=== PATIENT | female | born 1940 | race Caucasian/White ===

== ENCOUNTER → 2016-08-27 | Outpatient (CLI) | payer MEDICARE, BC ==
--- NOTE | 2016-08-27 11:01 | USB ---
Reason for exam: additional evaluation requested from abnormal screening. History: Patient is postmenopausal. Physical Findings: Nurse Summary: Patient complains of pain in the right upper outer quadrant for 4 months. All soft nodular movable (nurse ts). US Breast RT Right breast ultrasound includes all four quadrants, the retroareolar region and axilla. Finding demonstrate a 2.0 x 2.0 x 1.6 cm node in the axilla, and a 2.1 x 1.4 x 1.6cm node in the axilla. These results were verbally communicated with the patient and result sheet given to the patient on 08/27/16. ASSESSMENT: Probably benign, BI-RAD 3 RECOMMENDATION: Ultrasound of the right breast in 6 months. Manage patient on a clinical basis.
== END | disposition home or self-care (01) ==
LOC: RADUSWWP 08:32
PROVIDERS: ATTEND Family Medicine
DX: N64.4 Mastodynia (principal)

== ENCOUNTER → 2017-01-11 | Outpatient (CLI) | payer MEDICARE, BC ==
--- NOTE | 2017-01-11 14:18 | US ---
EXAMINATION TYPE: US kidneys/renal and bladder DATE OF EXAM: 01/11/2017 COMPARISON: NONE CLINICAL HISTORY: N18.2 Chronic kidney disease stage 2. Diabetic EXAM MEASUREMENTS: Right Kidney: 10.7 x 6.2 x 4.7 cm Left Kidney: 11.3 x 5.2 x 6.0 cm Post Void Residual Volume: 0 mL Right Kidney: No hydronephrosis or masses seen Left Kidney: prominent renal calices especially mid and lower pole; fluid area adjacent to mid renal periphery suggests sonographic "sweat sign" indicating renal failure. Bladder: wnl Bilateral Jets seen: only right ureteral jet was seen after 3 minute observation. Normal Post Void Residual: Yes, appears empty post void. IMPRESSION: There are changes suggesting some left renal failure.
== END | disposition home or self-care (01) ==
LOC: RADUSWWP 09:33
PROVIDERS: ATTEND Internal Medicine Nephrology
DX: N18.2 Chronic kidney disease, stage 2 (mild) (principal)
CPT/HCPCS: 76770

== ENCOUNTER 2019-05-23 13:59 | Inpatient (IN) | payer MEDICARE, BC ==
[2019-05-23 14:48] LABS: Basophils % (A) 1 %; Eosinophils # (A) 0.1 k/uL (0-0.7); Eosinophils % (A) 2 %; HCT 35.4 % (34.0-46.0); HGB 11.8 gm/dL (11.4-16.0); Lymphocytes # (A) 2.1 k/uL (1.0-4.8); Lymphocytes % (A) 33 %; MCH 27.9 pg (25.0-35.0); MCHC 33.4 g/dL (31.0-37.0); MCV 83.4 fL (80.0-100.0); Monocytes # (A) 0.3 k/uL (0-1.0); Monocytes % (A) 5 %; Neutrophils # (A) 3.6 k/uL (1.3-7.7); Neutrophils % (A) 58 %; Platelet Count 191 k/uL (150-450); RBC 4.24 m/uL (3.80-5.40); RDW 15.2 % (11.5-15.5); WBC 6.3 k/uL (3.8-10.6)
--- NOTE | 2019-05-23 14:58 | ED ---
Chest Pain HPI - General Chief Complaint: Chest Pain Stated Complaint: Chest pain Time Seen by Provider: 05/23/19 14:23 Source: patient, family, RN notes reviewed Mode of arrival: wheelchair Limitations: no limitations - History of Present Illness Initial Comments: This 79-year-old female history of heart disease and a cardiac stent done many years ago who apparently had a normal stress test in past year who presents today with complaints that sharp anterior chest pain that is in her anterior chest wall but also has pressure 93/10 severity she's had multiple recurrent episodes of this today. Currently she is 0 no fevers chills nausea vomiting sweats. Modifying factors at this time MD Complaint: chest pain - Related Data Home Medications Medication Instructions Recorded Confirmed Aspirin [Adult Low Dose Aspirin EC] 81 mg PO DAILY 03/05/16 04/03/18 Ergocalciferol [Vitamin D2 50,000 unit PO Q14D 03/05/16 04/03/18 (DRISDOL)] Ezetimibe/Simvastatin [Vytorin 1 tab PO HS 03/05/16 04/03/18 10-40 mg Tablet] Insulin Glargine,Hum.rec.anlog 72 units SQ HS 03/05/16 04/03/18 [Toujeo Solostar] Insulin Glulisine [Apidra] 20 unit SQ BID-W/MEALS 03/05/16 04/03/18 Losartan [Cozaar] 50 mg PO DAILY 03/05/16 04/03/18 Metoprolol Tartrate [Lopressor] 50 mg PO BID 03/05/16 04/03/18 Gemfibrozil [Lopid] 600 mg PO AC-BID 03/06/16 04/03/18 metFORMIN HCL 1,000 mg PO BID 03/26/18 04/03/18 Allergies Allergy/AdvReac Type Severity Reaction Status Date / Time Tetanus Vaccines and Toxoid Allergy Swelling Verified 04/03/18 09:36 [Tetanus Vaccines & Toxoid] Review of Systems ROS Statement: Those systems with pertinent positive or pertinent negative responses have been documented in the HPI. ROS Other: All systems not noted in ROS Statement are negative. EKG Findings - EKG Results: EKG: interpreted by MICKY, sinus rhythm (Sinus rhythm first-degree AV block rate was 69Old to 46 QRS 104 QT since QTC 414/443 rightward axis no acute ST-T wave changes seen) Past Medical History Past Medical History: Diabetes Mellitus, Hyperlipidemia, Hypertension, Osteoarth ritis (OA), Renal Disease Additional Past Medical History / Comment(s): stage 2 kidney damage (GFR) History of Any Multi-Drug Resistant Organisms: None Reported Past Surgical History: Cholecystectomy, Heart Catheterization With Stent, Orthopedic Surgery Additional Past Surgical History / Comment(s): benign brain tumor removed 1998 Past Anesthesia/Blood Transfusion Reactions: No Reported Reaction Date of Last Stent Placement:: 2010 Past Psychological History: No Psychological Hx Reported Smoking Status: Former smoker Past Alcohol Use History: None Reported Past Drug Use History: None Reported - Past Family History Sister(s) Family Medical History: Cancer Additional Family Medical History / Comment(s): lung Brother(s) Family Medical History: Cancer Additional Family Medical History / Comment(s): bladder and lung General Exam - General Exam Comments Initial Comments: This a well-developed well-nourished awake alert oriented 3 female Limitations: no limitations General appearance: alert, in no apparent distress Head exam: Present: atraumatic, normocephalic, normal inspection Eye exam: Present: normal appearance, PERRL, EOMI. Absent: scleral icterus, conjunctival injection, periorbital swelling ENT exam: Present: normal exam, mucous membranes moist Neck exam: Present: normal inspection, full ROM, other (Stridor JVD or bruits). Absent: tenderness, meningismus, lymphadenopathy Respiratory exam: Present: normal lung sounds bilaterally, chest wall tenderness (Tennis palpation of left costal sternal margin no step-off or crepitation this does reproduce some of the pain not all of it.). Absent: respiratory distress, wheezes, rales, rhonchi, stridor Cardiovascular Exam: Present: regular rate, normal rhythm, normal heart sounds. Absent: systolic murmur, diastolic murmur, rubs, gallop, clicks GI/Abdominal exam: Present: soft, normal bowel sounds. Absent: distended, tenderness, guarding, rebound, rigid Extremities exam: Present: normal inspection, full ROM, normal capillary refill. Absent: tenderness, pedal edema, joint swelling, calf tenderness Back exam: Present: normal inspection Neurological exam: Present: alert, oriented X3, CN II-XII intact Psychiatric exam: Present: normal affect, normal mood Skin exam: Present: warm, dry, intact, normal color. Absent: rash Course Vital Signs 05/23/19 05/23/19 05/23/19 14:01 14:40 15:53 Temperature 97.6 F Pulse Rate 71 68 Respiratory 18 20 16 Rate Blood Pressure 192/76 146/63 O2 Sat by Pulse 97 98 Oximetry Chest Pain MDM - MDM Did review the imaging and report no acute findings. Patient has had several more twinges of pain but is feeling improved at this time because of her prior history and the atypical presentation of this pain the patient will be admitted for further inpatient evaluation I did discuss the case with Dr. House who is covering Dr. Brady. Patient has seen Dr. Jang in the past cardiology will be consulted Disposition Clinical Impression: Chest pain Disposition: ADMITTED IP TO THIS HOSP Condition: Fair Referrals: Luis Brady MD [Primary Care Provider] - 1-2 days
--- NOTE | 2019-05-23 14:59 | XR ---
EXAMINATION TYPE: XR chest 2V DATE OF EXAM: 05/23/2019 COMPARISON: 01/31/2011 HISTORY: 79-year-old female with chest pain TECHNIQUE: PA and lateral views FINDINGS: Heart upper limits of normal in size. Aorta and pulmonary vasculature within normal limits. Mild inte rstitial prominence as a chronic appearance. No consolidation or pleural effusion. IMPRESSION: Chronic-appearing changes, possible bronchitis or asthma. No acute process otherwise seen.
[2019-05-23 15:01] LABS: Albumin 4.6 g/dL (3.5-5.0); Calcium 9.6 mg/dL (8.4-10.2); Magnesium 1.5 mg/dL (1.6-2.3); Potassium 4.8 mmol/L (3.5-5.1); Total Bilirubin 0.4 mg/dL (0.2-1.3); Total Protein 7.7 g/dL (6.3-8.2)
[2019-05-23 15:07] LABS: INR 0.9 (<1.2); Partial Thromboplastin Time 23.5 sec (22.0-30.0); Prothrombin Time 9.7 sec (9.0-12.0)
[2019-05-23] MEDS ORDERED: MAGNESIUM SULFATE-D5W PMX 1 GM in DEXTROSE/WATER 1 100ML.BAG IVPB ONE (15:35)
[2019-05-23] MEDS ORDERED: NITROGLYCERIN SL TABS 0.4 MG TAB SUBLINGUAL PRN (16:13)
--- NOTE | 2019-05-23 16:13 | ED ---
Medical Decision Making - Lab Data Result diagrams: 05/23/19 14:30 05/23/19 14:30 Lab Results 05/23/19 05/23/19 05/23/19 Range/Units 14:30 14:30 14:30 WBC 6.3 (3.8-10.6) k/uL RBC 4.24 (3.80-5.40) m/uL Hgb 11.8 (11.4-16.0) gm/dL Hct 35.4 (34.0-46.0) % MCV 83.4 (80.0-100.0) fL MCH 27.9 (25.0-35.0) pg MCHC 33.4 (31.0-37.0) g/dL RDW 15.2 (11.5-15.5) % Plt Count 191 (150-450) k/uL Neutrophils % 58 % Lymphocytes % 33 % Monocytes % 5 % Eosinophils % 2 % Basophils % 1 % Neutrophils # 3.6 (1.3-7.7) k/uL Lymphocytes # 2.1 (1.0-4.8) k/uL Monocytes # 0.3 (0-1.0) k/uL Eosinophils # 0.1 (0-0.7) k/uL Basophils # 0.0 (0-0.2) k/uL PT (9.0-12.0) sec INR (<1.2) APTT (22.0-30.0) sec Sodium 140 (137-145) mmol/L Potassium 4.8 (3.5-5.1) mmol/L Chloride 108 H (98-107) mmol/L Carbon Dioxide 21 L (22-30) mmol/L Anion Gap 11 mmol/L BUN 24 H (7-17) mg/dL Creatinine 0.99 (0.52-1.04) mg/dL Est GFR (CKD-EPI)AfAm 62 (>60 ml/min/1.73 sqM) Est GFR (CKD-EPI)NonAf 54 (>60 ml/min/1.73 sqM) Glucose 253 H (74-99) mg/dL Calcium 9.6 (8.4-10.2) mg/dL Magnesium 1.5 L (1.6-2.3) mg/dL Total Bilirubin 0.4 (0.2-1.3) mg/dL AST 25 (14-36) U/L ALT 20 (4-34) U/L Alkaline Phosphatase 77 (38-126) U/L Creatine Kinase 69 (30-135) U/L Troponin I (0.000-0.034) ng/mL NT-Pro-B Natriuret Pep 114 pg/mL Total Protein 7.7 (6.3-8.2) g/dL Albumin 4.6 (3.5-5.0) g/dL 05/23/19 05/23/19 Range/Units 14:30 14:30 WBC (3.8-10.6) k/uL RBC (3.80-5.40) m/uL Hgb (11.4-16.0) gm/dL Hct (34.0-46.0) % MCV (80.0-100.0) fL MCH (25.0-35.0) pg MCHC (31.0-37.0) g/dL RDW (11.5-15.5) % Plt Count (150-450) k/uL Neutrophils % % Lymphocytes % % Monocytes % % Eosinophils % % Basophils % % Neutrophils # (1.3-7.7) k/uL Lymphocytes # (1.0-4.8) k/uL Monocytes # (0-1.0) k/uL Eosinophils # (0-0.7) k/uL Basophils # (0-0.2) k/uL PT 9.7 (9.0-12.0) sec INR 0.9 (<1.2) APTT 23.5 (22.0-30.0) sec Sodium (137-145) mmol/L Potassium (3.5-5.1) mmol/L Chloride (98-107) mmol/L Carbon Dioxide (22-30) mmol/L Anion Gap mmol/L BUN (7-17) mg/dL Creatinine (0.52-1.04) mg/dL Est GFR (CKD-EPI)AfAm (>60 ml/min/1.73 sqM) Est GFR (CKD-EPI)NonAf (>60 ml/min/1.73 sqM) Glucose (74-99) mg/dL Calcium (8.4-10.2) mg/dL Magnesium (1.6-2.3) mg/dL Total Bilirubin (0.2-1.3) mg/dL AST (14-36) U/L ALT (4-34) U/L Alkaline Phosphatase (38-126) U/L Creatine Kinase (30-135) U/L Troponin I <0.012 (0.000-0.034) ng/mL NT-Pro-B Natriuret Pep pg/mL Total Protein (6.3-8.2) g/dL Albumin (3.5-5.0) g/dL Disposition Clinical Impression: Chest pain, Hypomagnesemia Disposition: ADMITTED IP TO THIS HOSP Condition: Fair Referrals: Luis Brady MD [Primary Care Provider] - 1-2 days
[2019-05-23 17:04] LABS: Glucose,Whole Blood 182 mg/dL (75-99)
[2019-05-23] MEDS: metFORMIN 500 MG TAB PO SCH (17:20)
[2019-05-23] MEDS ORDERED: INSULIN ASPART (NovoLOG) 100 UNIT/ML VIAL SQ SCH (17:30)
[2019-05-23] MEDS ORDERED: HYDROcodone/APAP 5-325MG 1 EACH TAB PO PRN (17:36)
[2019-05-23] MEDS ORDERED: ACETAMINOPHEN TAB 500 MG TAB PO PRN (17:41)
[2019-05-23] MEDS ORDERED: ALPRAZolam 0.25 MG TAB PO PRN (17:41)
[2019-05-23] MEDS ORDERED: Potassium Replacement Protocol 1 EACH MISC MISCELLANE PRN (17:46)
[2019-05-23] MEDS ORDERED: Magnesium Replacement Protocol 1 EACH MISC MISCELLANE PRN (17:46)
[2019-05-23] MEDS: PANTOPRAZOLE 40 MG TABLET PO SCH (20:05)
[2019-05-23] MEDS: NITROGLYCERIN OINT 1 INCH/GM PACKET TOPICAL SCH ×2 (20:05→23:01)
[2019-05-23] MEDS: SODIUM CHLORIDE 0.9% 1,000 ML IV SCH (20:05)
[2019-05-23] MEDS: LOSARTAN 50 MG TAB PO SCH (20:19)
[2019-05-23] MEDS: INSULIN ASPART (NovoLOG) 100 UNIT/ML VIAL SQ SCH (20:19)
[2019-05-23] MEDS: INSULIN DETEMIR (LEVEMIR) 100 UNIT/ML SYR SQ SCH (20:19)
[2019-05-23] MEDS: METOPROLOL TARTRATE 50 MG TAB PO SCH (20:19)
[2019-05-23 20:26] LABS: Glucose,Whole Blood 216 mg/dL (75-99)
[2019-05-23] MEDS ORDERED: ATORVASTATIN 20 MG TAB PO SCH (21:00)
[2019-05-23] MEDS ORDERED: EZETIMIBE 10 MG TAB PO SCH (21:00)
[2019-05-23] MEDS ORDERED: INSULIN DETEMIR (LEVEMIR) 100 UNIT/ML SYR SQ SCH (21:00)
--- NOTE | 2019-05-23 22:43 | HP ---
HISTORY AND PHYSICAL I am covering for Dr. Brady. DATE OF SERVICE: 05/23/2019 CHIEF COMPLAINT: Chest pain. HISTORY OF PRESENT ILLNESS: This 79-year-old woman with a past history of diabetes, hypertension, hyperlipidemia, history of DJD, history of renal disease, had CAD, stenting in [address] Burnett. Subsequently patient had a cardiac catheterization also. Currently the patient is complaining of chest pain which is felt in the anterior part of the chest, shows rather sharp in character, but subsequently patient had heavy feeling and the patient came to [facility] and admitted for further evaluation and treatment. There is no history of any fever, rigors or chills. No history of headache, loss of consciousness or seizures. Patient apparently had a stress test about a year ago. The patient unable to remember clearly. Otherwise, there is no history of any palpitations. No history of headache, loss of consciousness or seizures. No history of radiation of pain elsewhere.. No associated symptoms either. The patient being followed by Dr. Brady in the outpatient setting. PAST MEDICAL HISTORY: Diabetes, hypertension, hyperlipidemia, DJD, history of CAD/stent. MEDICATIONS: Home medications are: 1. Lopressor 50 mg p.o. b.i.d. 2. Metformin 1000 mg p.o. b.i.d. 3. Cozaar 50 mg q.h.s. 4. Lantus 65 units subcu q.h.s. 5. Lipitor 40 mg p.o. daily. 6. Lopid 600 mg p.o. b.i.d. 7. Vitamin D2 50,000 every 14 days. 8. Aspirin 81 mg daily. ALLERGIES: TETANUS TOXOID. FAMILY HISTORY: History of lung cancer in the family. SOCIAL HISTORY: Previous history of smoking. No history of current smoking or alcohol intake. REVIEW OF SYSTEMS: ENT: No diminished hearing, no diminished vision. Cardiovascular System as mentioned earlier. Respirations as mentioned earlier. GI no nausea or vomiting. : No dysuria. CENTRAL NERVOUS SYSTEM: No numbness or weakness. ALLERGY/IMMUNOLOGY: No asthma or hayfever. MUSCULOSKELETAL as mentioned earlier. HEMATOLOGY/ONCOLOGY: No history of anemia. ENDOCRINE: Diabetes. CONSTITUTIONAL: As mentioned earlier. DERMATOLOGY negative. RHEUMATOLOGY: Negative. PSYCHIATRY as mentioned earlier. PHYSICAL EXAMINATION: Alert and oriented x2. Pulse is 64. Blood pressure 184/72, respiration 18, temperature 97.6, pulse ox 98% on room air. HEENT: Conjunctivae normal. Oral mucosa moist. NECK is no jugular venous distention. No carotid bruit. No lymph node enlargement. CARDIOVASCULAR system: S1, S2 muffled. No S3, no S4. RESPIRATORY: Breath sounds diminished in the bases. No rhonchi. No crackles. ABDOMEN: Soft, obese, nontender. No mass palpable. LEGS: No edema. No swelling. NERVOUS SYSTEM: Higher functions as mentioned earlier. Moves all 4 limbs. No focal motor or sensory deficits. LYMPHATICS: No lymph nodes palpable in the neck, axilla or groin. SKIN: No ulcers, rashes or bleeding. JOINTS: No active deforming arthropathy. LABS: CBC within normal limits, otherwise glucose 253, magnesium 1.5. ASSESSMENT: 1. Chest pain, possible unstable angina. 2. Hypomagnesemia. 3. History of coronary artery disease/stent. 4. Diabetes mellitus type 2. 5. Hypertension. 6. Hyperlipidemia. 7. History of degenerative joint disease. 8. History of stage III kidney disease. 9. History of benign brain tumor. 10.Remote history of nicotine dependence. RECOMMENDATIONS AND DISCUSSION: In this 79-year-old woman who presented with multiple complex medical issues, we will monitor the patient closely, continue the current medications, management and symptomatic treatment. Resume the home medications, beta blockers. Unstable angina protocol. Cardiology consultation. Otherwise we will continue to monitor. Possible stress test. We will obtain the reports of the previous stress test. Prognosis guarded. Further recommendations to follow. MMODL / IJN: [id number] /
[2019-05-24 02:41] LABS: Basophils % (A) 1 %; Eosinophils # (A) 0.2 k/uL (0-0.7); Eosinophils % (A) 2 %; HCT 33.2 % (34.0-46.0); HGB 10.7 gm/dL (11.4-16.0); Lymphocytes # (A) 2.5 k/uL (1.0-4.8); Lymphocytes % (A) 34 %; MCH 26.7 pg (25.0-35.0); MCHC 32.1 g/dL (31.0-37.0); MCV 83.4 fL (80.0-100.0); Mean Platelet Volume 9.4; Monocytes # (A) 0.4 k/uL (0-1.0); Monocytes % (A) 5 %; Neutrophils % (A) 56 %; Platelet Count 190 k/uL (150-450); RBC 3.99 m/uL (3.80-5.40); RDW 15.1 % (11.5-15.5); WBC 7.2 k/uL (3.8-10.6)
[2019-05-24 03:21] LABS: Calcium 8.9 mg/dL (8.4-10.2); Magnesium 1.9 mg/dL (1.6-2.3); Potassium 4.5 mmol/L (3.5-5.1)
[2019-05-24] MEDS: NITROGLYCERIN OINT 1 INCH/GM PACKET TOPICAL SCH ×3 (04:00→20:30)
[2019-05-24 07:13] LABS: Glucose,Whole Blood 142 mg/dL (75-99)
[2019-05-24] MEDS ORDERED: LOSARTAN 50 MG TAB PO SCH (09:00)
[2019-05-24] MEDS ORDERED: FENOFIBRATE 160 MG TAB PO SCH (09:00)
[2019-05-24] MEDS: INSULIN ASPART (NovoLOG) 100 UNIT/ML VIAL SQ SCH ×4 (11:17→20:28)
[2019-05-24] MEDS: metFORMIN 500 MG TAB PO SCH ×2 (11:21→17:36)
[2019-05-24] MEDS: ASPIRIN 325 MG TAB PO SCH (11:21)
[2019-05-24] MEDS: ATORVASTATIN 40 MG TAB PO SCH (11:21)
[2019-05-24] MEDS: FENOFIBRATE 160 MG TAB PO SCH (11:21)
[2019-05-24] MEDS: METOPROLOL TARTRATE 50 MG TAB PO SCH ×2 (11:22→20:29)
[2019-05-24] MEDS: PANTOPRAZOLE 40 MG TABLET PO SCH (11:22)
[2019-05-24 11:43] LABS: Glucose,Whole Blood 140 mg/dL (75-99)
--- NOTE | 2019-05-24 15:00 | P.CRDCN ---
History of Present Illness Consult date: 05/24/19 History of present illness: This is a 79-year-old female with history of diabetes, hypertension, hyperlipidemia and coronary artery disease with a previous stent placement done in [address] Jang. Patient has been relatively stable since her stent placement 2010. At the time she was found to have ischemia on a preoperative stress test. Never had anginal symptoms prior to the stent placement. At the time. Now patient comes with complaints of chest pain and in the anterior part of the chest which was intermittent and sometimes sharp in nature. This was followed by a heavy feeling and patient came to the emergency room. Patient denied any fever or chills, cough, nausea and vomiting. Her EKGs did not reveal any acute changes. Her cardiac enzymes are negative. She claims she had a stress test about a year ago. This point, her chest pains are atypical for angina Cannot be completely excluded. Patient could Be Evaluated Pl., Lexiscan stress test in the morning Review of Systems As per the chart Past Medical History Past Medical History: Diabetes Mellitus, Hyperlipidemia, Hypertension, Osteoarthritis (OA), Renal Disease Additional Past Medical History / Comment(s): stage 3 kidney damage (GFR) History of Any Multi-Drug Resistant Organisms: None Reported Past Surgical History: Cholecystectomy, Heart Catheterization With Stent, Orthopedic Surgery Additional Past Surgical History / Comment(s): benign brain tumor removed 1998 Past Anesthesia/Blood Transfusion Reactions: No Reported Reaction Date of Last Stent Placement:: 2010 Past Psychological History: No Psychological Hx Reported Smoking Status: Former smoker Past Alcohol Use History: None Reported Past Drug Use History: None Reported - Past Family History Sister(s) Family Medical History: Cancer Additional Family Medical History / Comment(s): lung Brother(s) Family Medical History: Cancer Additional Family Medical History / Comment(s): bladder and lung Medications and Allergies Home Medications Medication Instructions Recorded Confirmed Type Aspirin [Adult Low Dose Aspirin EC] 81 mg PO DAILY 03/05/16 05/23/19 History Ergocalciferol [Vitamin D2 50,000 unit PO Q14D 03/05/16 05/23/19 History (SUBHASH)] Insulin Glargine,Hum.rec.anlog 65 units SQ HS 03/05/16 05/23/19 History [Toujeo Solostar] Losartan [Cozaar] 50 mg PO HS 03/05/16 05/23/19 History Metoprolol Tartrate [Lopressor] 50 mg PO BID 03/05/16 05/23/19 History Gemfibrozil [Lopid] 600 mg PO AC-BID 03/06/16 05/23/19 History metFORMIN HCL 1,000 mg PO BID 03/26/18 05/23/19 History Atorvastatin [Lipitor] 40 mg PO DAILY 05/23/19 05/23/19 History Allergies Allergy/AdvReac Type Severity Reaction Status Date / Time Tetanus Vaccines and Toxoid Allergy Swelling Verified 05/23/19 17:03 [Tetanus Vaccines & Toxoid] Physical Exam Vitals: Vital Signs Temp Pulse Pulse Resp BP BP BP 05/24/19 11:39 97.5 F L 67 18 150/77 05/24/19 07:48 98 F 60 18 141/67 05/24/19 04:00 97.8 F 63 18 128/64 05/24/19 00:00 60 18 05/23/19 23:39 98.0 F 60 18 137/72 05/23/19 20:00 65 18 05/23/19 19:27 98.2 F 65 18 157/77 05/23/19 18:20 05/23/19 17:08 97.6 F 64 18 184/72 05/23/19 16:54 20 05/23/19 15:53 68 16 146/63 Pulse Ox 05/24/19 11:39 95 05/24/19 07:48 93 L 05/24/19 04:00 97 05/24/19 00:00 05/23/19 23:39 95 05/23/19 20:00 05/23/19 19:27 96 05/23/19 18:20 98 05/23/19 17:08 98 05/23/19 16:54 05/23/19 15:53 98 Intake and Output 05/23/19 05/24/19 05/24/19 22:59 06:59 14:59 Other: Voiding Method Toilet Toilet Toilet # Voids 2 1 Weight 77.111 kg 77.9 kg GENERAL EXAM: Patient is alert and oriented and doesn't appear to be in any acute distress HEENT: Normocephalic. Normal reaction of pupils, equal size, normal range of extraocular motion. No erythema or exudates in the throat. NECK: No masses, no nuchal rigidity. CHEST: No chest wall deformity. LUNGS: Equal air entry with no crackles or wheeze. HEART: S1 and S2 normal with no audible mumurs or gallops. Regular rhythm, femorals equal on both sides.. ABDOMEN: No hepatosplenomegaly, normal bowel sounds, no guarding or rigidity. SKIN: No rashes CENTRAL NERVOUS SYSTEM: No focal deficits. EXTREMITIES: No cyanosis, clubbing or edema. Results 05/24/19 02:30 05/24/19 02:30 Cardiac Enzymes 05/23/19 05/23/19 05/23/19 Range/Units 14:30 14:30 20:37 AST 25 (14-36) U/L Troponin I <0.012 <0.012 (0.000-0.034) ng/mL 05/24/19 Range/Units 02:30 AST (14-36) U/L Troponin I <0.012 (0.000-0.034) ng/mL Coagulation 05/23/19 Range/Units 14:30 PT 9.7 (9.0-12.0) sec APTT 23.5 (22.0-30.0) sec Lipids 05/24/19 Range/Units 02:30 Triglycerides 215 H (<150) mg/dL Cholesterol 140 (<200) mg/dL HDL Cholesterol 29 L (40-60) mg/dL CBC 05/24/19 Range/Units 02:30 WBC 7.2 (3.8-10.6) k/uL RBC 3.99 (3.80-5.40) m/uL Hgb 10.7 L (11.4-16.0) gm/dL Hct 33.2 L (34.0-46.0) % Plt Count 190 (150-450) k/uL Comprehensive Metabolic Panel 05/23/19 05/24/19 Range/Units 14:30 02:30 Sodium 140 139 (137-145) mmol/L Potassium 4.8 4.5 (3.5-5.1) mmol/L Chloride 108 H 108 H (98-107) mmol/L Carbon Dioxide 21 L 23 (22-30) mmol/L BUN 24 H 26 H (7-17) mg/dL Creatinine 0.99 0.98 (0.52-1.04) mg/dL Glucose 253 H 176 H (74-99) mg/dL Calcium 9.6 8.9 (8.4-10.2) mg/dL AST 25 (14-36) U/L ALT 20 (4-34) U/L Alkaline Phosphatase 77 (38-126) U/L Total Protein 7.7 (6.3-8.2) g/dL Albumin 4.6 (3.5-5.0) g/dL Current Medications Generic Name Dose Route Start Last Admin Trade Name Freq PRN Reason Stop Dose Admin Acetaminophen 500 mg 05/23/19 17:41 Tylenol Tab PO Q6HR PRN Fever and/ or Mild Pain Hydrocodone Bitart/Acetaminophen 1 each 05/23/19 17:36 [place] 5-325 PO Q6HR PRN Pain Alprazolam 0.25 mg 05/23/19 17:41 Xanax PO TID PRN Anxiety Aspirin 325 mg 05/24/19 09:00 05/24/19 11:21 Aspirin PO 325 mg DAILY LINH Administration Atorvastatin Calcium 40 mg 05/24/19 09:00 05/24/19 11:21 Lipitor PO 40 mg DAILY LINH Administration Ergocalciferol 50,000 unit 05/27/19 09:00 Vitamin D2 PO Q14D LINH Fenofibrate 160 mg 05/24/19 09:00 05/24/19 11:21 Lofibra PO 160 mg DAILY LINH Administration Sodium Chloride 1,000 mls @ 20 mls/hr 05/23/19 16:15 05/23/19 20:05 Saline 0.9% IV Not Given .Q24H [facility] Insulin Aspart 0 unit 05/23/19 21:00 05/24/19 11:58 Novolog SQ Not Given ACHS [facility] Protocol Insulin Detemir 65 unit 05/23/19 21:00 05/23/19 20:19 Levemir SQ 65 unit HS LINH Administration Losartan Potassium 50 mg 05/23/19 21:00 05/23/19 20:19 Cozaar PO 50 mg HS LINH Administration Metformin HCl 1,000 mg 05/23/19 17:30 05/24/19 11:21 Glucophage PO 1,000 mg AC-BID LIN[facility] Administration Metoprolol Tartrate 50 mg 05/23/19 21:00 05/24/19 11:22 Lopressor PO 50 mg BID [facility] Administration Miscellaneous Information 1 each 05/23/19 17:46 Magnesium Per Protocol MISCELLANE DAILY PRN Per Protocol Protocol Miscellaneous Information 1 each 05/23/19 17:46 Potassium Per Protocol MISCELLANE DAILY PRN Per Protocol Protocol Nitroglycerin 0.4 mg 05/23/19 16:13 Nitrostat SUBLINGUAL Q5M PRN Chest Pain Nitroglycerin 1 inch 05/23/19 18:00 05/24/19 11:59 Nitro-Bid Oint TOPICAL Not Given Q6HR [facility] Pantoprazole Sodium 40 mg 05/23/19 17:45 05/24/19 11:22 Protonix PO 40 mg AC-[id number] LIN[facility] Administration Intake and Output 05/23/19 05/24/19 05/24/19 22:59 06:59 14:59 Other: Voiding Method Toilet Toilet Toilet # Voids 2 1 Weight 77.111 kg 77.9 kg 05/24/19 02:30 05/24/19 02:30 EKG Interpretations (text) Sinus rhythm Assessment and Plan (1) CAD (coronary artery disease) Current Visit: Yes Status: Acute Code(s): I25.10 - ATHSCL HEART DISEASE OF [place] CORONARY ARTERY W/O ANG PCTRS SNOMED Code(s): 05946294 (2) Chest pain Current Visit: Yes Status: Acute Code(s): R07.9 - CHEST PAIN, UNSPECIFIED SNOMED Code(s): 94999525 Plan: Her chest pains are atypical. EKGs and cardiac enzymes are normal. May proceed with the Lexiscan stress test to rule out any progression of ischemic heart disease.
[2019-05-24 16:36] LABS: Glucose,Whole Blood 147 mg/dL (75-99)
[2019-05-24] MEDS: SODIUM CHLORIDE 0.9% 1,000 ML IV SCH (18:54)
[2019-05-24 20:05] LABS: Glucose,Whole Blood 189 mg/dL (75-99)
[2019-05-24] MEDS: INSULIN DETEMIR (LEVEMIR) 100 UNIT/ML SYR SQ SCH (20:28)
[2019-05-24] MEDS: LOSARTAN 50 MG TAB PO SCH (20:29)
--- NOTE | 2019-05-24 21:44 | PN ---
PROGRESS NOTE DATE OF SERVICE: 05/24/2019 I am covering for Dr. Brady. This 79-year-old woman who was admitted with chest pain is being closely. The patient also had hypomagnesemia. Cardiology following the patient closely. The troponins are negative. No chest pain. No palpitations. No fever. EXAM: Alert and oriented times three. Pulse is 67. Blood pressure 150/77. Respiration 18. Temperature 97.5, pulse ox 94% on room air. HEENT: Conjunctivae normal. NECK: No JVD. CARDIOVASCULAR: S1, S2 muffled. RESPIRATORY SYSTEM: Breath sounds diminished at the bases. No rhonchi. No crackles. ABDOMEN is soft, nontender. LEGS: No edema. No swelling. Nervous System: No focal deficits. LABS: Hemoglobin is 10. Accu-Cheks noted. ASSESSMENT: 1. Chest pain, possible unstable angina. 2. Hypomagnesemia. 3. Anemia, normocytic possibly anemia of chronic disease. 4. History of coronary artery disease, stent. 5. Diabetes mellitus type 2. 6. Hypertension. 7. Hyperlipidemia. 8. History of degenerative joint disease. 9. History of stage 3 chronic kidney disease history. 10.History of benign brain tumor. 11.Remote history of nicotine dependence. RECOMMENDATIONS AND DISCUSSION: Recommend to continue current medications, management and symptomatic treatment. Continue to closely follow with Cardiology. Otherwise, Dr. Brady will follow. Possible stress test for further evaluation. MMODL / IJN: [id number] /
[2019-05-25] MEDS: NITROGLYCERIN OINT 1 INCH/GM PACKET TOPICAL SCH ×2 (00:45→05:34)
[2019-05-25 06:38] LABS: Glucose,Whole Blood 133 mg/dL (75-99)
[2019-05-25 07:41] VITALS: RESP 18; TEMP 97.5
[2019-05-25] MEDS ORDERED: SODIUM CHLORIDE 0.9% IV ONE (08:07)
[2019-05-25] MEDS ORDERED: DIPYRIDAMOLE IV ONE (08:07)
[2019-05-25] MEDS ORDERED: CAFFEINE CITRATE 60 MG/3 ML VIAL IV PRN (08:07)
[2019-05-25] MEDS ORDERED: AMINOPHYLLINE 500 MG/20 ML VIAL IV PRN (08:07)
[2019-05-25 08:28] LABS: Basophils % (A) 0 %; Eosinophils # (A) 0.1 k/uL (0-0.7); Eosinophils % (A) 2 %; HCT 36.1 % (34.0-46.0); HGB 11.3 gm/dL (11.4-16.0); Hypochromasia Slight; Lymphocytes # (A) 2.4 k/uL (1.0-4.8); Lymphocytes % (A) 34 %; MCH 26.1 pg (25.0-35.0); MCHC 31.3 g/dL (31.0-37.0); MCV 83.5 fL (80.0-100.0); Monocytes # (A) 0.3 k/uL (0-1.0); Monocytes % (A) 5 %; Neutrophils % (A) 58 %; Platelet Count 236 k/uL (150-450); RBC 4.32 m/uL (3.80-5.40); RDW 14.9 % (11.5-15.5)
[2019-05-25 08:41] LABS: Calcium 9.5 mg/dL (8.4-10.2); Potassium 4.6 mmol/L (3.5-5.1)
[2019-05-25] MEDS: metFORMIN 500 MG TAB PO SCH (09:32)
[2019-05-25] MEDS: FENOFIBRATE 160 MG TAB PO SCH (09:32)
[2019-05-25] MEDS: INSULIN ASPART (NovoLOG) 100 UNIT/ML VIAL SQ SCH ×2 (09:32→12:14)
[2019-05-25] MEDS: ATORVASTATIN 40 MG TAB PO SCH (09:33)
[2019-05-25] MEDS: PANTOPRAZOLE 40 MG TABLET PO SCH (09:33)
[2019-05-25] MEDS: METOPROLOL TARTRATE 50 MG TAB PO SCH (09:33)
[2019-05-25] MEDS: ASPIRIN 325 MG TAB PO SCH (09:33)
--- NOTE | 2019-05-25 09:46 | P.PN ---
Subjective This is a pleasant 79-year-old female past medical history significant for coronary artery disease status post PCI of the LAD in 2010, hypertension, dyslipidemia and diabetes mellitus. She follows in the office with Dr. Burnett. She underwent a Lexiscan stress test in September 2018 that was negative for reversible ischemia with normal LV systolic function. She is seen and examined sitting up in bed in no acute distress. She has had no further symptoms of chest discomfort since arriving at the hospital. We have asked her to get up and ambulate aggressively in the hallway. She has had no recurrence of chest pain with activity. Blood pressure 102/66 heart rate 54 afebrile maintaining oxygen saturation on room air. Laboratory data reviewed, WBC 7, hemoglobin 11.3, platelets 236, sodium 141, potassium 4.6, creatinine 1.02. Currently maintained on aspirin 325 mg daily, atorvastatin 40 mg daily, fenofibrate 160 mg daily, losartan 50 mg at bedtime, Lopressor 50 mg twice a day. She underwent cardiac catheterization in 2015 revealing proximal RCA with disease in the range of 20-30%, a eccentric lesion in the range of 60% in the mid RCA, mild disease of the distal RCA, 70% lesion in the small caliber PLV branch, left main is c alcified with mild disease, circumflex angiographically normal, proximal LAD is stented with a patent stent, mid LAD with 20-30% disease and no disease in the distal portion. At that time she underwent FFR of the RCA which came to be nonischemic GENERAL: Well-appearing, well-nourished and in no acute distress. NECK: Supple without JVD or thyromegaly. LUNGS: Breath sounds clear to auscultation bilaterally. Respiration equal and unlabored. No wheezes, rales or rhonchi. HEART: Regular rate and rhythm without murmurs, rubs or gallops. S1 and S2 heard. EXTREMITIES: Normal range of motion, no edema. No clubbing or cyanosis. Peripheral pulses intact. ASSESSMENT Chest pain, atypical. An acute coronary event has been ruled out. History of coronary artery disease status post PCI in 2010 Hypertension Dyslipidemia Diabetes mellitus PLAN Decrease aspirin to 81 mg daily. Recent stress test in the office September 2018 negative for reversible cardiac ischemia. No chest pain with activity or exertion. Stable for discharge from a cardiac perspective. Follow up in the office with Dr. Skaf in 1-2 weeks. Nurse Practitioner note has been reviewed, I agree with a documented findings and plan of care. Patient was seen and examined. Objective - Vital Signs Vital signs: Vital Signs Temp 97.5 F L 05/25/19 07:39 Pulse 54 L 05/25/19 07:39 Resp 18 05/25/19 07:39 BP 102/66 05/25/19 07:39 Pulse Ox 97 05/25/19 07:39 Intake & Output 05/24/19 05/25/19 05/25/19 18:59 06:59 18:59 Intake Total 480 Balance 480 Weight 76.5 kg Intake: Oral 480 Other: Voiding Method Toilet Toilet Toilet # Voids 1 1 - Labs CBC & Chem 7: 05/25/19 07:44 05/25/19 07:44 Labs: Abnormal Lab Results - Last 24 Hours (Table) 05/24/19 05/24/19 05/24/19 Range/Units 11:42 16:34 20:04 Hgb (11.4-16.0) gm/dL Chloride (98-107) mmol/L BUN (7-17) mg/dL Glucose (74-99) mg/dL POC Glucose (mg/dL) 140 H 147 H 189 H (75-99) mg/dL 05/25/19 05/25/19 05/25/19 Range/Units 06:36 07:44 07:44 Hgb 11.3 L (11.4-16.0) gm/dL Chloride 108 H (98-107) mmol/L BUN 28 H (7-17) mg/dL Glucose 140 H (74-99) mg/dL POC Glucose (mg/dL) 133 H (75-99) mg/dL
[2019-05-25 11:24] VITALS: BP 129/83; PULSE 60
[2019-05-25 11:43] LABS: Glucose,Whole Blood 200 mg/dL (75-99)
[2019-05-25 13:18] LABS: Hemoglobin A1C 8.2 % (4.0-6.0)
[2019-05-26] MEDS ORDERED: ASPIRIN 81 MG PO SCH (09:00)
[2019-05-27] MEDS ORDERED: ERGOCALCIFEROL 50,000 UNIT CAP PO SCH (09:00)
--- NOTE | 2019-05-27 18:42 | P.DS ---
Providers Date of admission: 05/25/19 08:11 Expected date of discharge: 05/25/19 Attending physician: Luis Brady Consults: 05/23/19 16:14 Consult Physician Urgent Consulting Provider: Girish Burnett Consult Reason/Comments: Chest pain Do you want consulting provider notified?: Yes Primary care physician: Luis Brady Hospital Course: This is a discharge summary an 79-year-old white female essentially admitted for anginal equivalent. The patient was ruled out as far as myocardial infarction. Cardiology was consulted. She had appropriate testing and was discharged in stable condition to follow-up with me in about 7 days. Patient Condition at Discharge: Fair Plan - Discharge Summary Discharge Rx Participant: No New Discharge Prescriptions: Continue Ergocalciferol [Vitamin D2 (DRISDOL)] 50,000 unit PO Q14D Losartan [Cozaar] 50 mg PO HS Insulin Glargine,Hum.rec.anlog [Toujeo Solostar] 65 units SQ HS Metoprolol Tartrate [Lopressor] 50 mg PO BID Aspirin [Adult Low Dose Aspirin EC] 81 mg PO DAILY Gemfibrozil [Lopid] 600 mg PO AC-BID metFORMIN HCL 1,000 mg PO BID Atorvastatin [Lipitor] 40 mg PO DAILY Discharge Medication List Aspirin [Adult Low Dose Aspirin EC] 81 mg PO DAILY 03/05/16 [History] Ergocalciferol [Vitamin D2 (DRISDOL)] 50,000 unit PO Q14D 03/05/16 [History] Insulin Glargine,Hum.rec.anlog [Toujeo Solostar] 65 units SQ HS 03/05/16 [History] Losartan [Cozaar] 50 mg PO HS 03/05/16 [History] Metoprolol Tartrate [Lopressor] 50 mg PO BID 03/05/16 [History] Gemfibrozil [Lopid] 600 mg PO AC-BID 03/06/16 [History] metFORMIN HCL 1,000 mg PO BID 03/26/18 [History] Atorvastatin [Lipitor] 40 mg PO DAILY 05/23/19 [History] Follow up Appointment(s)/Referral(s): Girish Burnett MD [STAFF PHYSICIAN] - 06/09/19 4:15 pm (with Polly GARLAND ) Luis Brady MD [Primary Care Provider] - 05/28/19 3:10 pm Patient Instructions/Handouts: Chest Pain (DC) Discharge Disposition: HOME SELF-CARE
== END 2019-05-25 15:40 | disposition home or self-care (01) | DRG 313 ==
LOC: EC 13:59 → 1SOBS 16:14 → OBSVTOIN 05-25 08:11
PROVIDERS: ADMIT Family Medicine; ATTEND Family Medicine
DX: R07.89 Other chest pain (principal); I25.118 Atherosclerotic heart disease of native coronary artery with other forms of angina pectoris; D63.1 Anemia in chronic kidney disease; E11.22 Type 2 diabetes mellitus with diabetic chronic kidney disease; N18.3 Chronic kidney disease, stage 3 (moderate); I12.9 Hypertensive chronic kidney disease with stage 1 through stage 4 chronic kidney disease, or unspecified chronic kidney disease; E83.42 Hypomagnesemia; E78.5 Hyperlipidemia, unspecified; M19.90 Unspecified osteoarthritis, unspecified site; Z79.4 Long term (current) use of insulin; Z79.82 Long term (current) use of aspirin; Z79.899 Other long term (current) drug therapy; Z87.891 Personal history of nicotine dependence; Z95.5 Presence of coronary angioplasty implant and graft; Z86.011 Personal history of benign neoplasm of the brain; Z90.49 Acquired absence of other specified parts of digestive tract; Z88.7 Allergy status to serum and vaccine; Z80.1 Family history of malignant neoplasm of trachea, bronchus and lung; Z80.52 Family history of malignant neoplasm of bladder
CPT/HCPCS: 36415; 71046; 80048; 80053; 80061; 82550; 83036; 83735; 83880; 84484; 85025; 85610; 85730; 93005; 96365; 99285

== ENCOUNTER 2020-04-18 06:40 | Inpatient (IN) | payer MEDICARE, BC ==
[~2020-04-18 06:40] MED LIST: ALPRAZolam 0.25 MG TAB PO PRN; ALPRAZolam 0.5 MG TAB PO PRN; NITROGLYCERIN SL TABS 0.4 MG TAB SUBLINGUAL PRN; SODIUM CHLORIDE 0.9% 1,000 ML in EMPTY BAG 1 BAG IV ONE
[2020-04-18] MEDS ORDERED: ATORVASTATIN 80 MG TAB PO ONE (07:00)
[2020-04-18] MEDS ORDERED: ASPIRIN 325 MG TAB PO ONE (07:00)
[2020-04-18] MEDS ORDERED: SODIUM CHLORIDE 0.9% 1,000 ML IV ONE (07:10)
[2020-04-18 07:15] LABS: Glucose,Whole Blood 106 mg/dL (75-99)
[2020-04-18] MEDS ORDERED: VERAPAMIL 2.5 MG/ML 2 ML AMP ONE (09:07)
[2020-04-18] MEDS ORDERED: LIDOCAINE 1% INJ 10MG/ML (20 ML MDV) ONE (09:07)
[2020-04-18] MEDS ORDERED: HEPARIN SODIUM 1,000 UN/ML (10ML VL) ONE (09:23)
[2020-04-18] MEDS ORDERED: MIDAZOLAM 2 MG/2 ML VIAL IV ONE (09:40)
[2020-04-18] MEDS ORDERED: LIDOCAINE 1% INJ 10MG/ML (20 ML MDV) SQ ONE (09:44)
[2020-04-18] MEDS ORDERED: fentaNYL (PF) 50 MCG/ML 2 ML AMP ONE (09:50)
[2020-04-18] MEDS ORDERED: VERAPAMIL SYRINGE (5 MG/10 ML) INTRAARTER ONE (09:50)
[2020-04-18] MEDS ORDERED: HEPARIN SODIUM 1,000 UN/ML (10ML VL) IV ONE (09:51)
[2020-04-18] MEDS ORDERED: fentaNYL (PF) 50 MCG/ML 2 ML AMP IV ONE (09:51)
[2020-04-18] MEDS ORDERED: RX INFO: IV CONTRAST WAS GIVEN 1 EACH MISC MISCELLANE PRN (10:12)
[2020-04-18] MEDS ORDERED: SODIUM CHLORIDE 0.9% 1,000 ML IV SCH (10:15)
--- NOTE | 2020-04-18 10:45 | CC ---
CARDIAC CATHETERIZATION REPORT DATE OF SERVICE: April 18, 2020 PERFORMING PHYSICIAN: Girish Burnett MD. PROCEDURE PERFORMED: Selective right and left coronary angiogram. INDICATION: This is a very pleasant 79-year-old female patient with coronary artery disease and prior stenting of the LAD as well as known intermediate disease involving the right coronary artery with an FFR in 2016 came in to be at 0.83, was experiencing symptoms of shortness of breath with exertion concerning for angina. Because of that, a heart catheterization was advised. APPROACH: Right radial artery. COMPLICATION: None. LEVEL OF SEDATION: Moderate with sedation length of 23 minutes. PROCEDURE DESCRIPTION: After obtaining an informed consent, the patient was brought to the cardiac laboratory technical specialist. The right radial artery was cannulated using micropuncture technique and a micropuncture wire passed easily then I placed a 6[place] sheath in the right radial artery. I gave the patient 2 mg of verapamil IA and 6000 units of heparin IV. Selective right and left coronary angiogram performed with JR4 and JL3.5 catheters. The procedure was completed without any complication. SELECTIVE CORONARY ANGIOGRAM: 1. The RCA is a large caliber vessel. It is a dominant vessel. The RCA in the midportion appeared to have intermediate lesion, seems to be in the range of 60%. Distally, the RCA bifurcates into PDA and PLV branches both appeared to have mild to moderate diffuse disease. 2. The left main is a large caliber vessel. The distal left main has intermediate lesion appeared to be in the range of 50%. The left main bifurcates into LCX and LAD. 3. The left circumflex is a large caliber vessel. It is a nondominant vessel. The LCX has mild disease only. It gives rise into a large OM branch which appeared to have mild disease only as well. 4. The LAD: The proximal LAD appeared to be stented and the stent is patent. The mid LAD has a lesion seems to be in the range of 99.9%. The LAD distally appeared to be angiographically normal. The LAD gives rise into diagonal branch which is a moderate caliber vessel. CONCLUSION: 1. Distal left main eccentric plaque appeared to be in the range of 50%. 2. Critical disease involving the mid left anterior descending artery. POSTPROCEDURE MANAGEMENT: 1. Giving the above anatomy, I recommended the patient to be seen by cardiothoracic surgeon for the evaluation of CABG. 2. If the patient is turned down to be high risk for the surgery, I would do a PCI of the LAD as well as left main coronary artery. MMKENY / IJN: [id number] /
[2020-04-18] MEDS ORDERED: MD COMMUNICATION TO PHARMACY 1 EACH MISC PO ONE ×5 (12:49)
[2020-04-18 13:53] LABS: Anisocytosis Slight; Basophils % (A) 1 %; Eosinophils # (A) 0.1 k/uL (0-0.7); Eosinophils % (A) 2 %; HCT 31.7 % (34.0-46.0); HGB 10.7 gm/dL (11.4-16.0); Lymphocytes # (A) 2.2 k/uL (1.0-4.8); Lymphocytes % (A) 37 %; MCH 28.1 pg (25.0-35.0); MCHC 33.8 g/dL (31.0-37.0); MCV 83.1 fL (80.0-100.0); Mean Platelet Volume 7.5; Monocytes # (A) 0.3 k/uL (0-1.0); Monocytes % (A) 5 %; Neutrophils # (A) 3.3 k/uL (1.3-7.7); Neutrophils % (A) 55 %; Platelet Count 213 k/uL (150-450); RBC 3.81 m/uL (3.80-5.40); RDW 19.4 % (11.5-15.5)
--- NOTE | 2020-04-18 14:00 | P.CNPUL ---
History of Present Illness Consult date: 04/18/20 Chief complaint: Chest pain and exertional dyspnea History of present illness: 79-year-old female patient with coronary artery disease and prior stenting of the LAD as well as no disease involving the RCA was experiencing shortness of breath and exertional angina. For that, the patient was given a cardiac catheterization today and the patient was found to have distal left main eccentric plaque appearing to be in the range of 50% and there was critical disease involving the mid LAD. The RCA having an intermediate lesion 60% range. The circumflex was nondominant and was within normal limits. The patient is currently hospitalized and the patient is being considered for coronary artery bypass surgery. The patient is currently hemodynamically stable. The patient has no specific complaints. The patient is known to have hypertension and hyperlipidemia and diabetes mellitus. The LDL cholesterol is at 68. No previous history of CVA. No focal neurological deficits. 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 Review of Systems Constitutional: Denies chills, Denies fever Eyes: denies as per HPI, denies blurred vision, denies bulging eye, denies decreased vision, denies diplopia, denies discharge, denies dry eye, denies irritation, denies itching, denies pain, denies photophobia, denies loss of peripheral vision, denies loss of vision, denies tunnel vision/blind spots Ears: deny: decreased hearing, ear discharge, earache, tinnitus Ears, nose, mouth and throat: Reports as per HPI Breasts: absent: as per HPI, change in shape, gynecomastia, masses, nipple d ischarge, pain, skin changes, swelling Cardiovascular: Reports chest pain, Reports decreased exercise tolerance, Reports dyspnea on exertion Respiratory: Reports dyspnea Gastrointestinal: Reports as per HPI Genitourinary: Reports as per HPI Menstruation: Reports as per HPI Musculoskeletal: Reports as per HPI Musculoskeletal: absent: ankle pain, ankle stiffness, ankle swelling Integumentary: Reports as per HPI Neurological: Reports as per HPI Psychiatric: Reports as per HPI Endocrine: Reports as per HPI Hematologic/Lymphatic: Reports as per HPI Allergic/Immunologic: Reports as per HPI Past Medical History Past Medical History: Cancer, Diabetes Mellitus, GERD/Reflux, Hyperlipidemia, Hypertension, Osteoarthritis (OA), Renal Disease Additional Past Medical History / Comment(s): hx skin cancer on left leg, varicose veins right leg. History of Any Multi-Drug Resistant Organisms: None Reported Past Surgical History: Cholecystectomy, Heart Catheterization With Stent, Orthopedic Surgery Additional Past Surgical History / Comment(s): Benign brain tumor removed 1998, tumor removed from left shoulder, skin cancer removed from left leg. Past Anesthesia/Blood Transfusion Reactions: No Reported Reaction Date of Last Stent Placement:: 2010 Past Psychological History: No Psychological Hx Reported Smoking Status: Former smoker Past Alcohol Use History: Occasional Additional Past Alcohol Use History / Comment(s): Quit smoking 40 yrs ago. Past Drug Use History: None Reported - Past Family History Sister(s) Family Medical History: Cancer Additional Family Medical History / Comment(s): Lung cancer. Brother(s) Family Medical History: Cancer Additional Family Medical History / Comment(s): One brother had bladder and lung cancer. One brother had lung and brain cancer. Mother Family Medical History: Cancer Son(s) Family Medical History: Myocardial Infarction ([place]) Additional Family Medical History / Comment(s): (Only had one child) from [place]. Medications and Allergies Home Medications Medication Instructions Recorded Confirmed Type Aspirin [Adult Low Dose Aspirin EC] 81 mg PO DAILY 03/05/16 04/18/20 History Ergocalciferol [Vitamin D2 50,000 unit PO FR 03/05/16 04/12/20 History (ISDOL)] Insulin Glargine,Hum.rec.anlog 65 units SQ HS 03/05/16 04/18/20 History [Toucaryn Solostar] Metoprolol Tartrate [Lopressor] 50 mg PO BID 03/05/16 04/18/20 History gemfibroziL [Lopid] 600 mg PO AC-BID 03/06/16 04/18/20 History metFORMIN HCL 1,000 mg PO BID 03/26/18 04/18/20 History Atorvastatin [Lipitor] 40 mg PO DAILY 05/23/19 04/18/20 History Isosorbide 30 mg PO DAILY 04/12/20 04/18/20 History Allergies Allergy/AdvReac Type Severity Reaction Status Date / Time Tetanus Vaccines and Toxoid Allergy Swelling Verified 04/18/20 07:02 [Tetanus Vaccines & Toxoid] Physical Exam Vitals: Vital Signs Temp Pulse Pulse Resp BP BP Pulse Ox 04/18/20 13:38 69 18 159/71 96 12/28/20 12:32 54 L 18 165/70 96 04/18/20 12:02 54 L 18 151/69 96 04/18/20 11:32 58 L 18 163/68 96 04/18/20 11:02 55 L 18 145/66 96 04/18/20 10:47 52 L 18 169/71 96 04/18/20 10:32 54 L 18 171/74 96 04/18/20 10:17 56 L 18 176/74 97 04/18/20 07:06 98.1 F 53 L 18 171/77 169/116 99 Intake and Output 04/17/20 04/18/20 04/18/20 22:59 06:59 14:59 Intake Total 350 Balance 350 Intake: IV 350 The patient appeared well nourished and normally developed. Vital signs as documented. Head exam is unremarkable. No scleral icterus or corneal arcus noted. Neck is without jugular venous distension, thyromegaly, or carotid bruits. Carotid upstrokes are brisk bilaterally. Lungs are clear to auscultation and percussion. Cardiac exam reveals the PMI to be normally sized and situated. Rhythm is regular. First and second heart sounds normal. No murmurs, rubs or gallops. Abdominal exam reveals normal bowel sounds, no masses, no organomegaly and no aortic enlargement. Extremities are nonedematous and both femoral and pedal pulses are normal.Examination of the skin revealed no evidence of significant rashes, suspicious appearing nevi or other concerning lesions.Branden rologically, the patient is awake and alert and the patient does not have any focal neurological deficit. Cranial nerves are essentially intact. Results - Laboratory Findings CBC and BMP: 04/18/20 11:40 Abnormal lab findings: Abnormal Labs 04/18/20 04/18/20 07:13 11:40 Hgb 10.7 L Hct 31.7 L RDW 19.4 H POC Glucose (mg/dL) 106 H Assessment and Plan Plan: 1 symptomatically coronary artery disease with involvement of the distal left main in the range of 50% with an eccentric plaque in addition to critical disease involving the mid LAD. The patient is being considered for coronary artery bypass surgery 2 exertional dyspnea and angina secondary to above 3 diabetes mellitus 4 hypertension 5 hyperlipidemia Plan Obtain a baseline chest x-ray Obtain bedside spirometry and measure the patient's FEV1 Provide the patient incentive spirometer Awaiting CT surgery consultation regarding the possibility of undergoing a coronary bypass surgery. We'll continue to follow. We'll manage the ventilator if surgery is to be done. We'll also attend to any postoperative pulmonary issues, should they arise.
[2020-04-18 14:03] LABS: Albumin 4.1 g/dL (3.5-5.0); Calcium 9.5 mg/dL (8.4-10.2); Magnesium 1.8 mg/dL (1.6-2.3); Potassium 4.8 mmol/L (3.5-5.1); Total Bilirubin 0.5 mg/dL (0.2-1.3); Total Protein 6.8 g/dL (6.3-8.2)
[2020-04-18 14:07] LABS: Partial Thromboplastin Time 39.1 sec (22.0-30.0); Prothrombin Time 10.5 sec (9.0-12.0)
--- NOTE | 2020-04-18 15:03 | US ---
EXAMINATION TYPE: US carotid duplex BILAT DATE OF EXAM: 04/18/2020 COMPARISON: NONE CLINICAL HISTORY: Pre-Op Cardiac Surgery. EXAM MEASUREMENTS: RIGHT: Peak Systolic Velocity (PSV) cm/sec ----- Right CCA: 57.3 ----- Right ICA: 123.6 ----- Right ECA: 95.0 ICA/CCA ratio: 2.2 RIGHT: End Diastole cm/sec ----- Right CCA: 10.4 ----- Right ICA: 30.1 ----- Right ECA: 0.0 LEFT: Peak Systolic Velocity (PSV) cm/sec ----- Left CCA: 58.6 ----- Left ICA: 268.1 ----- Left ECA: 80.3 ICA/CCA ratio: 4.6 LEFT: End Diastole cm/sec ----- Left CCA: 11.8 ----- Left ICA: 69.3 ----- Left ECA: 0.0 VERTEBRALS (direction of flow): Right Vertebral: Antegrade Left Vertebral: Antegrade Rhythm: Normal [place] scale images show moderate to severe eccentric plaque at bilateral carotid bulb level. Increased velocities noted in the left internal carotid artery. Further workup advised. IMPRESSION: Moderate to severe atherosclerotic change with hemodynamically significant stenosis in t he left internal carotid artery suspected , degree of stenosis estimated at greater than 70%. Furth er investigation with CTA or MRA of the neck advised. Criteria for Assigning % of Stenosis / Diameter reduction (Estimation based on the indirect measurements of the internal carotid artery velocities (ICA PSV). 1. Normal (no stenosis)=ICA PSV < 125 cm/s: ratio < 2.0: ICA EDV<40 cm/s. 2. Less than 50% stenosis=ICA PSV < 125 cm/s: ratio < 2.0: ICA EDV<40 cm/s. 3. 50 to 69% stenosis=ICA PSV of 125 to 230 cm/s: ration 2.0 ? 4.0: ICA EDV 40-100 cm/s. 4. Greater than 70% stenosis to near occlusion= ICA PSV > 230 cm/s: ratio > 4.0: ICA EDV > 100 cm/s. 5. Near occlusion= ICA PSV velocities may be low or undetectable: variable ratio and ICA EDV. 6. Total occlusion=unable to detect flow.
--- NOTE | 2020-04-18 16:22 | P.GSCN ---
History of Present Illness Consult date: 04/18/20 Reason for Consult: Symptomatic coronary artery disease with left main disease. Requesting physician: Girish Burnett History of present illness: This is an 79-year-old female patient who is followed by Dr. Luis Brady on an outpatient basis. She also follows with Dr. Burnett from [facility] on an outpatient basis for her history of coronary artery disease. 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 Washington on an outpatient basis. Recently, the patient has been having complaints of increasing shortness of breath, feeling like her heart is racing and chest heaviness. She reports the shortness of breath and chest heaviness have been off and on for the past 2 months. She denies any complaints of nausea, vomiting, dizziness, lightheadedness, palpitations, peripheral edema, presyncope or syncope. The pat rose has a history of previous stent placement to her proximal left anterior descending coronary artery in January 2011 and underwent a heart catheterization in 2015 which showed a borderline lesion in her left anterior descending coronary artery. For further evaluation the patient underwent a 2-D echocardiogram at Dr. Burnett's office on 04/05/2020 which showed a left ventricle to be normal in size with normal systolic function, an injection fraction of 60%, mild to moderate mitral valve regurgitation directed centrally, mild mitral annular calcification, mild tricuspid valve regurgitation and trace pulmonic valve regurgitation. Due to the patient's history of coronary artery disease, and her recent symptoms she underwent an elective heart catheterization today 04/18/[address] Burnett. The heart catheterization results demonstrated a 50% stenosis to her left main coronary artery, a 99% stenosis to her mid left anterior descending coronary artery and a 60 percent stenosis to h er mid right coronary artery. Due to the findings on the heart catheterization a consult was placed to Dr. Harish Alvarez from cardiothoracic surgery for further treatment recommendations including myocardial revascularization surgery. Review of Systems A 14 point review of systems was completed and was negative except as mentioned in the HPI. 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 History of benign brain tumor. History of Any Multi-Drug Resistant Organisms: None Reported Past Surgical History: Cholecystectomy, Heart Catheterization With Stent, Orthopedic Surgery Additional Past Surgical History / Comment(s): Carpal tunnel right side, Benign brain tumor removed 1998, tumor removed from left shoulder, skin cancer removed from left leg. Past Anesthesia/Blood Transfusion Reactions: No Reported Reaction Date of Last Stent Placement:: 2010 Past Psychological History: No Psychological Hx Reported Smoking Status: Former smoker Past Alcohol Use History: Occasional Additional Past Alcohol Use History / Comment(s): Quit smoking 40 yrs ago. Past Drug Use History: None Reported - Past Family History Sister(s) Family Medical History: Cancer Additional Family Medical History / Comment(s): Lung cancer. Brother(s) Family Medical History: Cancer Additional Family Medical History / Comment(s): One brother had bladder and lung cancer. One brother had lung and brain cancer. Mother Family Medical History: Cancer Son(s) Family Medical History: Myocardial Infarction ([place]) Additional Family Medical History / Comment(s): (Only had one child) from [place] at age 59 Medications and Allergies Home Medications Medication Instructions Recorded Confirmed Type Aspirin [Adult Low Dose Aspirin EC] 81 mg PO DAILY 03/05/16 04/18/20 History Ergocalciferol [Vitamin D2 50,000 unit PO FR 03/05/16 04/12/20 History (DRISDOL)] Insulin Glargine,Hum.rec.anlog 65 units SQ HS 03/05/16 04/18/20 History [Toucaryn Solostar] Metoprolol Tartrate [Lopressor] 50 mg PO BID 03/05/16 04/18/20 History gemfibroziL [Lopid] 600 mg PO AC-BID 03/06/16 04/18/20 History metFORMIN HCL 1,000 mg PO BID 03/26/18 04/18/20 History Atorvastatin [Lipitor] 40 mg PO DAILY 05/23/19 04/18/20 History Isosorbide 30 mg PO DAILY 04/12/20 04/18/20 History Allergies Allergy/AdvReac Type Severity Reaction Status Date / Time Tetanus Vaccines and Toxoid Allergy Swelling Verified 04/18/20 07:02 [Tetanus Vaccines & Toxoid] Surgical - Exam Vital Signs Temp Pulse Resp BP Pulse Ox 98.1 F 53 L 18 171/77 99 04/18/20 07:06 04/18/20 07:06 04/18/20 07:06 04/18/20 07:06 04/18/20 07:06 - General well developed, well nourished, no distress, no pain, obese - Eyes PERRL, normal ocular movement, no icteric - ENT normal pinna, normal nares, normal mucosa, no hearing loss, no congestion, dentures (Upper plate) - Neck Neck is supple. no masses, trachea midline, no venous distension carotid bruit: left (Left carotid bruit) - Respiratory Lung sounds are essentially clear throughout, diminished bilateral bases. No wheezes, rhonchi or crackles. Respirations are symmetrical and nonlabored. - Cardiovascular Regular rhythm and bradycardic rate. S1 and S2 present, negative for S3 or gallop. Soft systolic murmur heard best to her left sternal border. No peripheral edema. Varicosities to her right lower extremity. - Abdomen Abdomen is soft, nontender and nondistended. No guarding or rigidity. No organomegaly appreciated. - Genitourinary Deferred - Rectum Deferred - Integumentary no rash, no growths, no abnormal pigmentation - Neurologic Cranial nerves II through XII intact. normal coordination, normal sensation - Musculoskeletal Moves all 4 extremities with equal strength bilateral. - Psychiatric oriented to time, oriented to person, oriented to place, speech is normal, memory intact Results - Labs 04/18/20 11:40 04/18/20 11:40 Abnormal Lab Results - Last 24 Hours (Table) 04/18/20 04/18/20 04/18/20 Range/Units 07:13 11:40 11:40 Hgb 10.7 L (11.4-16.0) gm/dL Hct 31.7 L (34.0-46.0) % RDW 19.4 H (11.5-15.5) % APTT 39.1 H (22.0-30.0) sec Chloride (98-107) mmol/L Glucose (74-99) mg/dL POC Glucose (mg/dL) 106 H (75-99) mg/dL LDL Cholesterol, Calc (0-99) mg/dL 04/18/20 Range/Units 11:40 Hgb (11.4-16.0) gm/dL Hct (34.0-46.0) % RDW (11.5-15.5) % APTT (22.0-30.0) sec Chloride 111 H (98-107) mmol/L Glucose 103 H (74-99) mg/dL POC Glucose (mg/dL) (75-99) mg/dL LDL Cholesterol, Calc 101 H (0-99) mg/dL Diabetes panel 04/18/20 Range/Units 11:40 Sodium 142 (137-145) mmol/L Potassium 4.8 (3.5-5.1) mmol/L Chloride 111 H (98-107) mmol/L Carbon Dioxide 25 (22-30) mmol/L BUN 17 (7-17) mg/dL Creatinine 1.04 (0.52-1.04) mg/dL Glucose 103 H (74-99) mg/dL Calcium 9.5 (8.4-10.2) mg/dL AST 23 (14-36) U/L ALT 18 (4-34) U/L Alkaline Phosphatase 59 (38-126) U/L Total Protein 6.8 (6.3-8.2) g/dL Albumin 4.1 (3.5-5.0) g/dL Triglycerides 97 (<150) mg/dL HDL Cholesterol 48 (40-60) mg/dL Thyroid panel 04/18/20 Range/Units 11:40 TSH 1.370 (0.465-4.680) mIU/L Calcium panel 04/18/20 Range/Units 11:40 Calcium 9.5 (8.4-10.2) mg/dL Albumin 4.1 (3.5-5.0) g/dL Pituitary panel 04/18/20 Range/Units 11:40 Sodium 142 (137-145) mmol/L Potassium 4.8 (3.5-5.1) mmol/L Chloride 111 H (98-107) mmol/L Carbon Dioxide 25 (22-30) mmol/L BUN 17 (7-17) mg/dL Creatinine 1.04 (0.52-1.04) mg/dL Glucose 103 H (74-99) mg/dL Calcium 9.5 (8.4-10.2) mg/dL TSH 1.370 (0.465-4.680) mIU/L Adrenal panel 04/18/20 Range/Units 11:40 Sodium 142 (137-145) mmol/L Potassium 4.8 (3.5-5.1) mmol/L Chloride 111 H (98-107) mmol/L Carbon Dioxide 25 (22-30) mmol/L BUN 17 (7-17) mg/dL Creatinine 1.04 (0.52-1.04) mg/dL Glucose 103 H (74-99) mg/dL Calcium 9.5 (8.4-10.2) mg/dL Total Bilirubin 0.5 (0.2-1.3) mg/dL AST 23 (14-36) U/L ALT 18 (4-34) U/L Alkaline Phosphatase 59 (38-126) U/L Total Protein 6.8 (6.3-8.2) g/dL Albumin 4.1 (3.5-5.0) g/dL - Imaging Additional studies: Cardiac catheterization films reviewed by Dr. Harish Alvarez. Carotid duplex study results reviewed. Assessment and Plan Assessment: 1. Symptomatic coronary artery disease with left main disease 2. Left internal carotid artery stenosis per carotid duplex study estimated at rate of 70% 3. Hypertension 4. Hyperlipidemia 5. Insulin-dependent diabetes mellitus type 2 6. Mild to moderate mitral valve regurgitation with preserved LV function with an ejection fraction of 60% per 2-D echocardiogram 7. History of coronary artery disease with previous stent placement to her left anterior descending coronary artery in 2010 8. History of a benign brain tumor 9. Family history of coronary artery disease with her son passing away at age 59 from a myocardial infarction 10. History of stage III kidney disease followed by Dr. Washington from nephrology 11. Degenerative joint disease 12. 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 Chronic anemia 14. Remote history of nicotine dependence quit smoking over 40 years ago Plan: The patient was seen and examined at her bedside in the extended stay unit. Her chart and diagnostics were reviewed. She was seen and evaluated by Dr. Harish Alvarez from cardiothoracic surgery, her nephew Pradeep was also present at her bedside. The results of the catheterization films were reviewed with the patient and her nephew. Treatment options were discussed including myocardial revascularization surgery. Risks and benefits of the myocardial revascularization surgery were discussed with the patient, knowing and understanding the risks and benefits of myocardial revascularization surgery the patient wishes to proceed with the surgical option. Preoperative testing and preoperative teaching has been initiated. She will be scheduled for off-pump myocardial revascularization surgery with left internal mammary artery, endoscopic vein harvest and intraoperative transesophageal echocardiogram for Saturday04/20/2020 to be performed by Dr. Harish Alvarez. Continue to optimize medical management with aspirin, statin and beta hilary. Cardiology recommendations per Dr. Burnett. Medical management and other comorbidities per primary care service. A consult was placed to Dr. Best from pulmonary medicine for preoperative clearance. Once her preoperative testing has been completed we will calculate an STS risk score which will be discussed with the patient by Dr. Alvarez. Preoperative FEV1 has been completed which demonstrates a predicted value of 87%. Once the patient is able to ambulate we will complete a 5 m walk test with the patient. Thank you Dr. Burnett for this consult and we'll look for to working with you in the care of this patient. Time with Patient: Greater than 30
[2020-04-18 16:50] LABS: Glucose,Whole Blood 144 mg/dL (75-99)
--- NOTE | 2020-04-18 16:56 | XR ---
EXAMINATION TYPE: XR chest 2V DATE OF EXAM: 04/18/2020 COMPARISON: 05/23/2019 HISTORY: Cardiac surgery TECHNIQUE: 2 views FINDINGS: There is no heart failure nor confluent pneumonic infiltrate. Costophrenic angles are clear . There are chest leads. There are no hilar masses. Bony thorax is intact. IMPRESSION: No active cardiopulmonary disease. No change. Normal heart
[2020-04-18] MEDS: SODIUM CHLORIDE 0.9% 1,000 ML IV SCH ×2 (18:35→18:37)
[2020-04-18 20:27] LABS: Glucose,Whole Blood 186 mg/dL (75-99)
[2020-04-18 20:54] LABS: Hepatitis A Antibody IgM Non-Reactive (Non-Reactive); Hepatitis B Core IgM Non-Reactive (Non-Reactive); Hepatitis B Surface Antigen Non-Reactive (Non-Reactive); Hepatitis C IgG Antibody Non-Reactive (Non-Reactive)
[2020-04-18 21:22] LABS: Hemoglobin A1C 6.2 % (4.0-6.0)
[2020-04-18] MEDS: METOPROLOL TARTRATE 50 MG TAB PO SCH (21:42)
[2020-04-19] MEDS: MUPIROCIN 2% OINT 22 GM TUBE NASAL SCH ×3 (03:07→21:24)
[2020-04-19 06:19] LABS: Glucose,Whole Blood 136 mg/dL (75-99)
[2020-04-19] MEDS: SODIUM CHLORIDE 0.9% 1,000 ML IV SCH ×2 (08:47→17:53)
[2020-04-19] MEDS: METOPROLOL TARTRATE 50 MG TAB PO SCH ×2 (09:39→21:22)
[2020-04-19] MEDS: ISOSORBIDE MONONITRATE ER 30 MG TAB.ER.24H PO SCH (09:39)
[2020-04-19] MEDS: ATORVASTATIN 40 MG TAB PO SCH (09:39)
--- NOTE | 2020-04-19 10:35 | P.PN ---
Subjective Progress Note Date: 04/19/20 Principal diagnosis: Symptomatic coronary artery disease with left main disease. 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 Washington on an outpatient basis. The patient was seen in follow-up today 04/19/2020 at her bedside on the cardiac stepdown unit. Currently she is sitting to the bedside edge, she is alert, and oriented 3. Denies any complaints of shortness of breath or pain at this time. Preoperative teaching were reviewed with the patient at her bedside and also with her nephew Pradeep per phone. Questions were answered to the best my ability. Preoperative testing has been collected, her carotid duplex study showed a left internal carotid artery stenosis estimated at 70%. Bedside FEV1 was completed yesterday which showed a predicted value of 87%. Oxygen saturations are 95% on room air and she is achieving 2000 mL on her incentive spirometry. Objective - Vital Signs Vital signs: Vital Signs Temp 97.8 F 04/19/20 04:00 Pulse 56 L 04/19/20 04:00 Resp 18 04/19/20 04:00 BP 163/85 04/19/20 04:00 Pulse Ox 95 04/19/20 04:00 Intake & Output 04/18/20 04/19/20 04/19/20 18:59 06:59 18:59 Intake Total 750 236 Output Total 0 Balance 750 236 Weight 76.5 kg 74.8 kg Intake: IV 750 Oral 236 Output: Urine 0 Other: Voiding Method Toilet # Voids 1 1 - Constitutional General appearance: Present: cooperative, no acute distress, obese - EENT Eyes: Present: PERRLA, normal appearance. Absent: scleral icterus ENT: Present: hearing grossly normal - Neck Details: Neck is supple, no JVD, positive carotid bruit to her left side. - Respiratory Details: Lung sounds are essentially clear throughout. Respirations are symmetrical and nonlabored. Oxygen saturation is 95% on room air. Achieving 2000 ml on her incentive spirometry. Bedside FEV1 completed yesterday which showed a predicted value of 87%. - Cardiovascular Details: Regular rhythm and rate. S1 and S2 present, negative for S3 or gallop. Positive soft systolic murmur heard best at left sternal border. - Gastrointestinal Gastrointestinal Comment(s): Abdomen is soft, nontender and nondistended. Active bowel sounds present in all 4 brow quadrants. No guarding or rigidity. Tolerating oral intake. - Genitourinary Genitourinary Comment(s): Continues to void. - Integumentary Integumentary Comment(s): Skin is warm and dry. No clubbing or cyanosis present. No rash or abnormal pigmentation is present. - Neurologic Neurologic: Present: CNII-XII intact. Absent: focal deficits - Musculoskeletal Musculoskeletal: Present: gait normal, strength equal bilaterally - Psychiatric Psychiatric: Present: A&O x's 3, appropriate affect, intact judgment & insight - Allied health notes Allied health notes reviewed: nursing - Labs CBC & Chem 7: 04/18/20 11:40 04/18/20 11:40 Labs: Abnormal Lab Results - Last 24 Hours (Table) 04/18/20 04/18/20 04/18/20 Range/Units 11:40 11:40 11:40 Hgb 10.7 L (11.4-16.0) gm/dL Hct 31.7 L (34.0-46.0) % RDW 19.4 H (11.5-15.5) % APTT 39.1 H (22.0-30.0) sec Chloride (98-107) mmol/L Glucose (74-99) mg/dL POC Glucose (mg/dL) (75-99) mg/dL Hemoglobin A1c 6.2 H (4.0-6.0) % LDL Cholesterol, Calc (0-99) mg/dL 04/18/20 04/18/20 04/18/20 Range/Units 11:40 16:49 20:26 Hgb (11.4-16.0) gm/dL Hct (34.0-46.0) % RDW (11.5-15.5) % APTT (22.0-30.0) sec Chloride 111 H (98-107) mmol/L Glucose 103 H (74-99) mg/dL POC Glucose (mg/dL) 144 H 186 H (75-99) mg/dL Hemoglobin A1c (4.0-6.0) % LDL Cholesterol, Calc 101 H (0-99) mg/dL 04/19/20 Range/Units 06:18 Hgb (11.4-16.0) gm/dL Hct (34.0-46.0) % RDW (11.5-15.5) % APTT (22.0-30.0) sec Chloride (98-107) mmol/L Glucose (74-99) mg/dL POC Glucose (mg/dL) 136 H (75-99) mg/dL Hemoglobin A1c (4.0-6.0) % LDL Cholesterol, Calc (0-99) mg/dL Microbiology - Last 24 Hours (Table) 04/18/20 16:13 Nasal Screen MRSA/MSSA - Preliminary Nasal Swab - Imaging and Cardiology Chest x-ray: report reviewed, image reviewed Assessment and Plan Assessment: 1. Symptomatic coronary artery disease with left main disease 2. Left internal carotid artery stenosis per carotid duplex study estimated at rate of 70% 3. Hypertension 4. Hyperlipidemia 5. Insulin-dependent diabetes mellitus type 2 6. Mild to moderate mitral valve regurgitation with preserved LV function with an ejection fraction of 60% per 2-D echocardiogram 7. History of coronary artery disease with previous stent placement to her left anterior descending coronary artery in 2010 8. History of a benign brain tumor 9. Family history of coronary artery disease with her son passing away at age 59 from a myocardial infarction 10. History of stage III kidney disease followed by Dr. Washington from nephrology 11. Degenerative joint disease 12. 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 Chronic anemia 14. Remote history of nicotine dependence quit smoking over 40 years ago Plan: 1. Preoperative teaching for myocardial revascularization surgery reinforced with the patient. Her nephew Pradeep was also on the phone while going over the preoperative teaching. 2. A 5 m walk test was completed with the patient, time 1:3.15 seconds, time 2: 3.05 seconds, time 3:3.06 seconds. 3. Her STS risk score was calculated and discussed with the patient by Dr. Harish Alvarez. 4. The patient is scheduled for myocardial revascularization surgery with left internal mammary artery, endoscopic vein harvest and intraoperative transesophageal echocardiogram for tomorrow Saturday04/20/2020 to be performed by Dr. Harish Alvarez. 5. Continue to optimize medical management with aspirin, statin and beta hilary. 6. Encourage use of her incentive spirometry 10 times every hour while awake. 7. Nothing by mouth after midnight. 8. GI and DVT prophylaxis. 9. More recommendations to follow based on patient's clinical course. Time with Patient: Greater than 30
--- NOTE | 2020-04-19 11:25 | P.CRDCN ---
History of Present Illness Consult date: 04/19/20 Chief complaint: Shortness of breath History of present illness: This is a very pleasant 79-year-old female patient with a past medical history s ignificant for coronary artery disease and prior stenting of the LAD as well as hypertension and dyslipidemia who was seen in the office recently where she was experiencing symptoms of increasing shortness of breath and sometimes chest discomfort with exertion. The last heart catheterization which was performed in 2015 revealed patent stents in the LAD with intermediate disease involving the right coronary artery where an FFR was performed at that point and that came in to be nonischemic and 0.82 on maximize medical treatment was advised. Because we were concerned about progression in the severity of the disease in the RCA behind the patient symptoms I advised the patient to undergo a heart catheterization. The heart catheterization revealed de faviola severe disease involving the distal left main coronary artery with a complex plaque and also critical disease involving the mid left anterior descending artery. With the above anatomy I advised the patient to be seen by cardiothoracic surgeon. The patient was seen by Dr. Alvarez yesterday who was in agreement that the patient would benefit from coronary artery bypass grafting more than coronary artery stenting. For that reason and because he was planning to go. On the patient tomorrow, Saturday, the patient was kept in the hospital. She was seen this morning. She denies any symptoms of chest pain or chest discomfort or shortness of breath or dizziness or lightheadedness at this point. She underwent a carotid duplex study which revealed intermediate to severe disease involving the left internal carotid artery. No severe disease involving the right internal carotid artery. Currently the patient is on aspirin as well as she is on beta hilary and she is on high intensity statin was Lipitor at 40 mg by mouth daily. 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 History of benign brain tumor. History of Any Multi-Drug Resistant Organisms: None Reported Past Surgical History: Cholecystectomy, Heart Catheterization With Stent, Orth opedic Surgery Additional Past Surgical History / Comment(s): Carpal tunnel right side, Benign brain tumor removed 1998, tumor removed from left shoulder, skin cancer removed from left leg. Past Anesthesia/Blood Transfusion Reactions: No Reported Reaction Date of Last Stent Placement:: 2010 Past Psychological History: No Psychological Hx Reported Smoking Status: Former smoker Past Alcohol Use History: Occasional Additional Past Alcohol Use History / Comment(s): Quit smoking 40 yrs ago. Past Drug Use History: None Reported - Past Family History Sister(s) Family Medical History: Cancer Additional Family Medical History / Comment(s): Lung cancer. Brother(s) Family Medical History: Cancer Additional Family Medical History / Comment(s): One brother had bladder and lung cancer. One brother had lung and brain cancer. Mother Family Medical History: Cancer Son(s) Family Medical History: Myocardial Infarction ([place]) Additional Family Medical History / Comment(s): (Only had one child) from [place] at age 59 Medications and Allergies Home Medications Medication Instructions Recorded Confirmed Type Aspirin [Adult Low Dose Aspirin EC] 81 mg PO DAILY 03/05/16 04/18/20 History Ergocalciferol [Vitamin D2 50,000 unit PO FR 03/05/16 04/12/20 History (DRISDOL)] Insulin Glargine,Hum.rec.anlog 65 units SQ HS 03/05/16 04/18/20 History [Toujeo Solostar] Metoprolol Tartrate [Lopressor] 50 mg PO BID 03/05/16 04/18/20 History gemfibroziL [Lopid] 600 mg PO AC-BID 03/06/16 04/18/20 History metFORMIN HCL 1,000 mg PO BID 03/26/18 04/18/20 History Atorvastatin [Lipitor] 40 mg PO DAILY 05/23/19 04/18/20 History Isosorbide 30 mg PO DAILY 04/12/20 04/18/20 History Losartan [Cozaar] 50 mg PO DAILY 04/18/20 04/18/20 History Allergies Allergy/AdvReac Type Severity Reaction Status Date / Time Tetanus Vaccines and Toxoid Allergy Swelling Verified 04/18/20 07:02 [Tetanus Vaccines & Toxoid] Physical Exam Vitals: Vital Signs Temp Pulse Resp BP Pulse Ox 04/19/20 04:00 97.8 F 56 L 18 163/85 95 04/19/20 02:00 18 04/19/20 00:00 97.9 F 60 18 154/72 97 04/18/20 20:00 97.9 F 63 18 168/65 96 04/18/20 15:00 98.7 F 61 18 149/68 96 04/18/20 14:30 69 04/18/20 13:38 69 18 159/71 96 04/18/20 12:32 54 L 18 165/70 96 04/18/20 12:02 54 L 18 151/69 96 04/18/20 11:32 58 L 18 163/68 96 Intake and Output 04/18/20 04/19/20 04/19/20 22:59 06:59 14:59 Intake Total 236 Output Total 0 Balance 236 Intake: Oral 236 Output: Urine 0 Other: Voiding Method Toilet Toilet # Voids 0 1 Weight 74.8 kg - Constitutional General appearance: no acute distress - Respiratory Respiratory: bilateral: wheezing - Cardiovascular Rhythm: regular Heart sounds: normal: S1, S2 Abnormal Heart Sounds: systolic murmur Results 04/18/20 11:40 04/18/20 11:40 Cardiac Enzymes 04/18/20 Range/Units 11:40 AST 23 (14-36) U/L Coagulation 04/18/20 Range/Units 11:40 PT 10.5 (9.0-12.0) sec APTT 39.1 H (22.0-30.0) sec Lipids 04/18/20 Range/Units 11:40 Triglycerides 97 (<150) mg/dL Cholesterol 168 (<200) mg/dL HDL Cholesterol 48 (40-60) mg/dL CBC 04/18/20 Range/Units 11:40 WBC 6.0 (3.8-10.6) k/uL RBC 3.81 (3.80-5.40) m/uL Hgb 10.7 L (11.4-16.0) gm/dL Hct 31.7 L (34.0-46.0) % Plt Count 213 (150-450) k/uL Comprehensive Metabolic Panel 04/18/20 Range/Units 11:40 Sodium 142 (137-145) mmol/L Potassium 4.8 (3.5-5.1) mmol/L Chloride 111 H (98-107) mmol/L Carbon Dioxide 25 (22-30) mmol/L BUN 17 (7-17) mg/dL Creatinine 1.04 (0.52-1.04) mg/dL Glucose 103 H (74-99) mg/dL Calcium 9.5 (8.4-10.2) mg/dL AST 23 (14-36) U/L ALT 18 (4-34) U/L Alkaline Phosphatase 59 (38-126) U/L Total Protein 6.8 (6.3-8.2) g/dL Albumin 4.1 (3.5-5.0) g/dL Current Medications Generic Name Dose Route Start Last Admin Trade Name Freq PRN Reason Stop Dose Admin Alprazolam 0.25 mg 04/18/20 05:39 Alprazolam 0.25 Mg Tab PO Q6HR PRN Mild Anxiety Alprazolam 0.5 mg 04/18/20 05:39 Alprazolam 0.5 Mg Tab PO Q6HR PRN Moderate Anxiety Aspirin 325 mg 04/20/20 05:00 Aspirin 325 Mg Tab PO 04/20/20 05:01 ONCE ONE Atorvastatin Calcium 10 mg 04/20/20 05:00 Atorvastatin 10 Mg Tab PO 04/20/20 05:01 ONCE ONE Atorvastatin Calcium 40 mg 04/19/20 09:00 04/19/20 09:39 Atorvastatin 40 Mg Tab PO 40 mg DAILY LINH Administration Calcium Chloride 1,000 mg 04/20/20 05:00 Calcium Chloride 100 Mg/Ml 10 Ml Syringe IVP 04/20/20 05:01 ONCE ONE Chlorhexidine Gluconate 15 ml 04/20/20 05:00 Chlorhexidine Gluconate 15 Ml Cup MUCOUS MEM 04/20/20 05:01 ONCE ONE Heparin Sodium (Porcine) 10,000 unit 04/20/20 05:00 Heparin Sodium 1,000 Un/Ml (10ml Vl) IV 04/20/20 05:01 ONCE ONE Heparin Sodium (Porcine) 30,000 unit 04/20/20 05:00 Heparin Sodium,Porcine 30 Ml 1,000 Unit/Ml Vial IV 04/20/20 05:01 ONCE ONE Heparin Sodium (Porcine) 30,000 unit 04/20/20 05:00 Heparin Sodium,Porcine 30 Ml 1,000 Unit/Ml Vial IV 04/20/20 05:01 ONCE ONE Heparin Sodium (Porcine) 30,000 unit 04/20/20 05:00 Heparin Sodium,Porcine 30 Ml 1,000 Unit/Ml Vial IV 04/20/20 05:01 ONCE ONE Sodium Chloride 1,000 mls @ 100 mls/hr 04/18/20 06:00 04/19/20 08:47 Saline 0.9% IV Not Given .Q10H LINH Heparin Sodium (Porcine) 5,000 501 mls @ 0 mls/hr 04/20/20 05:00 unit/ Sodium Chloride IV 04/20/20 05:01 ONCE ONE As Directed Protamine Sulfate 250 mg/ IV 25 mls @ 0 mls/hr 04/20/20 05:00 Solution IV 04/20/20 05:01 ONCE ONE As Directed Nitroglycerin/Dextrose 50 mg/ 250 mls @ 1.5 mls/hr 04/20/20 05:00 IV Solution IV .Q24H LINH Protocol 5 MCG/MIN Albumin Human 50 ml/ IV 50 mls @ 100 mls/hr 04/20/20 05:00 Solution IVPB 04/20/20 05:29 ONCE ONE Albumin Human 50 ml/ IV 50 mls @ 100 mls/hr 04/20/20 05:00 Solution IVPB 04/20/20 05:29 ONCE ONE Clevidipine 25 mg/ IV Solution 50 mls @ 2 mls/hr 04/20/20 05:00 IV .Q24H LINH Protocol 1 MG/HR Phenylephrine HCl 40 mg/ 254 mls @ 0 mls/hr 04/20/20 05:00 Sodium Chloride IV 04/20/20 05:01 .Q0M ONE Protocol Per Protocol Norepinephrine Bitartrate 4 mg 254 mls @ 0 mls/hr 04/20/20 05:00 / Sodium Chloride IV .Q0M LINH Protocol Titrate Propofol 1,000 mg/ IV Solution 100 mls @ 0 mls/hr 04/20/20 05:00 IV .Q0M PRN Per Protocol Protocol Titrate Sodium Bicarbonate 20 ml/ 1,033.5 mls @ 0 mls/hr 04/20/20 05:00 Lidocaine HCl 270 mg/ Plegisol PERFUSION 04/20/20 05:01 Cardioplegic Solution .Q0M NR Protocol Per Protocol Cefazolin Sodium 2 gm/ Sodium 50 mls @ 100 mls/hr 04/20/20 05:00 Chloride IVPB 04/20/20 05:29 ONCE ONE Cefazolin Sodium 2 gm/ Sodium 50 mls @ 100 mls/hr 04/20/20 05:00 Chloride IVPB 04/20/20 05:29 ONCE ONE Cefazolin Sodium 1,000 mg/ 1,000 mls @ 999 mls/hr 04/20/20 05:00 Sodium Chloride IRRIGATION 04/20/20 06:00 ONCE ONE Insulin Human Regular 100 unit 100 mls @ 0 mls/hr 04/20/20 06:00 / Sodium Chloride IV .Q0M LINH Protocol Titrate Papaverine HCl 360 mg/ Sodium 102 mls @ 0 mls/hr 04/20/20 05:00 Chloride IV 04/20/20 05:01 ONCE ONE As Directed Tranexamic Acid 2,000 mg/ 200 mls @ 0 mls/hr 04/20/20 05:00 Sodium Chloride IV 04/20/20 05:01 .Q0M ONE Protocol Per Protocol Isosorbide Mononitrate 30 mg 04/19/20 09:00 04/19/20 09:39 Isosorbide Mononitrate Er 30 Mg Tab.Er.24h PO 30 mg DAILY LINH Administration Magnesium Sulfate 16.24 meq 04/20/20 05:00 Magnesium Sulfate Syg 4.06 Meq/Ml Syringe IV 04/20/20 05:01 ONCE ONE Mannitol 12.5 gm 04/20/20 05:00 Mannitol 25% 12.5 Gm/50 Ml Vial IV 04/20/20 05:01 ONCE ONE Mannitol 12.5 gm 04/20/20 05:00 Mannitol 25% 12.5 Gm/50 Ml Vial IV 04/20/20 05:01 ONCE ONE Metoprolol Tartrate 12.5 mg 04/20/20 05:00 Metoprolol Tartrate 12.5 Mg Tab PO 04/20/20 05:01 ONCE ONE Metoprolol Tartrate 50 mg 04/18/20 21:00 04/19/20 09:39 Metoprolol Tartrate 50 Mg Tab PO 50 mg BID LINH Administration Miscellaneous Information 1 each 04/18/20 10:12 Rx Info: Iv Contrast Was Given 1 Each Misc MISCELLANE 04/20/20 10:12 DAILY PRN Per Protocol Mupirocin 1 applic 04/18/20 21:00 04/19/20 09:40 Mupirocin 2% Oint 22 Gm Tube NASAL 04/23/20 21:01 1 applic BID LINH Administration Nitroglycerin 0.4 mg 04/18/20 05:39 Nitroglycerin Sl Tabs 0.4 Mg Tab SUBLINGUAL Q5M PRN Chest Pain Nitroglycerin/Dextrose 1 mg 04/20/20 05:00 Nitroglycerin-D5w Pmx 25 Mg/250 Ml Btl IV 04/20/20 05:01 ONCE ONE Phenylephrine HCl 0 mg 04/20/20 05:00 Phenylephrine 10 Mg/Ml Vial IV 04/20/20 05:01 ONCE ONE Protamine Sulfate 250 mg 04/20/20 05:00 Protamine Sulfate 10 Mg/Ml 25 Ml Vial IV 04/20/20 05:01 ONCE ONE Sodium Bicarbonate 50 ml 04/20/20 05:00 Sodium Bicarb 8.4% 50 Ml Syr (1 Meq/Ml) IV 04/20/20 05:01 ONCE ONE Intake and Output 04/18/20 04/19/20 04/19/20 22:59 06:59 14:59 Intake Total 236 Output Total 0 Balance 236 Intake: Oral 236 Output: Urine 0 Other: Voiding Method Toilet Toilet # Voids 0 1 Weight 74.8 kg 04/18/20 11:40 04/18/20 11:40 Assessment and Plan Assessment: Assessment #1 severe coronary artery disease as described above #2 prior coronary revascularization internal stenting #3 hypertension #4 dyslipidemia #5 carotid disease Plan #1 continue the current medical regimen #2 the plan is to pursue with surgery tomorrow morning #3 follow-up with the patient
[2020-04-19 11:35] LABS: Glucose,Whole Blood 209 mg/dL (75-99)
[2020-04-19 12:30] LABS: Appearance,Urine Clear (Clear); Bilirubin,Urine Negative (Negative); Blood,Urine Negative (Negative); Color,Urine Yellow; Glucose,Urine (UA) Negative (Negative); Ketones,Urine Negative (Negative); Leukocyte Esterase,Urine Moderate (Negative); Mucus,Urine Rare /hpf; Nitrite,Urine Negative (Negative); PH, Urine 5.5 (5.0-8.0); Protein,Urine 1+ (Negative); RBC,Urine 1 /hpf (0-5); Specific Gravity,Urine 1.016 (1.001-1.035); Squamous Epithelial Cell,Urine 1 /hpf (0-4); Urobilinogen,Urine <2.0 mg/dL (<2.0); WBC,Urine 4 /hpf (0-5)
--- NOTE | 2020-04-19 12:48 | P.PN ---
Subjective Progress Note Date: 04/19/20 On today's evaluation of 04/19/2020, the patient is calm and comfortable hemodynamically stable and she is free of any chest pain. She is not having any shortness of breath. The patient's chest x-ray was within normal limits. A bedside spirometry was done and the patient had an FEV1 of 87% of predicted. As such, the patient the patient is stable and the patient is also sent for surgery which would include coronary artery bypass surgery in a.m. She is using incentive spirometer. She is producing volumes of 2500 on the incentive spirometer. No nausea. No vomiting. No chest pain. No syncope. No hypotension. Objective - Vital Signs Vital signs: Vital Signs Temp 97.8 F 04/19/20 04:00 Pulse 56 L 04/19/20 04:00 Resp 18 04/19/20 04:00 BP 163/85 04/19/20 04:00 Pulse Ox 95 04/19/20 04:00 Intake & Output 04/18/20 04/19/20 04/19/20 18:59 06:59 18:59 Intake Total 750 236 480 Output Total 0 Balance 750 236 480 Weight 76.5 kg 74.8 kg Intake: IV 750 Oral 236 480 Output: Urine 0 Other: Voiding Method Toilet # Voids 1 1 - Exam The patient appeared well nourished and normally developed. Vital signs as documented. Head exam is unremarkable. No scleral icterus or corneal arcus noted. Neck is without jugular venous distension, thyromegaly, or carotid bruits. Carotid upstrokes are brisk bilaterally. Lungs are clear to auscultation and percussion. Cardiac exam reveals the PMI to be normally sized and situated. Rhythm is regular. First and second heart sounds normal. No murmurs, rubs or gallops. Abdominal exam reveals normal bowel sounds, no masses, no organomegaly and no aortic enlargement. Extremities are nonedematous and both femoral and pedal pulses are normal.Examination of the skin revealed no evidence of significant rashes, suspicious appearing nevi or other concerning lesions.Neurologically, the patient is awake and alert and the patient does not have any focal neurological deficit. Cranial nerves are essentially intact. - Labs CBC & Chem 7: 04/18/20 11:40 04/18/20 11:40 Labs: Abnormal Lab Results - Last 24 Hours (Table) 04/18/20 04/18/20 04/18/20 Range/Units 11:40 11:40 11:40 Hgb 10.7 L (11.4-16.0) gm/dL Hct 31.7 L (34.0-46.0) % RDW 19.4 H (11.5-15.5) % APTT 39.1 H (22.0-30.0) sec Chloride (98-107) mmol/L Glucose (74-99) mg/dL POC Glucose (mg/dL) (75-99) mg/dL Hemoglobin A1c 6.2 H (4.0-6.0) % LDL Cholesterol, Calc (0-99) mg/dL Urine Protein (Negative) Ur Leukocyte Esterase (Negative) Urine Mucus (None) /hpf 04/18/20 04/18/20 04/18/20 Range/Units 11:40 16:49 20:26 Hgb (11.4-16.0) gm/dL Hct (34.0-46.0) % RDW (11.5-15.5) % APTT (22.0-30.0) sec Chloride 111 H (98-107) mmol/L Glucose 103 H (74-99) mg/dL POC Glucose (mg/dL) 144 H 186 H (75-99) mg/dL Hemoglobin A1c (4.0-6.0) % LDL Cholesterol, Calc 101 H (0-99) mg/dL Urine Protein (Negative) Ur Leukocyte Esterase (Negative) Urine Mucus (None) /hpf 04/19/20 04/19/20 04/19/20 Range/Units 06:18 11:33 12:15 Hgb (11.4-16.0) gm/dL Hct (34.0-46.0) % RDW (11.5-15.5) % APTT (22.0-30.0) sec Chloride (98-107) mmol/L Glucose (74-99) mg/dL POC Glucose (mg/dL) 136 H 209 H (75-99) mg/dL Hemoglobin A1c (4.0-6.0) % LDL Cholesterol, Calc (0-99) mg/dL Urine Protein 1+ H (Negative) Ur Leukocyte Esterase Moderate H (Negative) Urine Mucus Rare H (None) /hpf Microbiology - Last 24 Hours (Table) 04/18/20 16:13 Nasal Screen MRSA/MSSA - Preliminary Nasal Swab Assessment and Plan Plan: 1 symptomatically coronary artery disease with involvement of the distal left main in the range of 50% with an eccentric plaque in addition to critical disease involving the mid LAD. The patient is being considered for coronary artery bypass surgery 2 exertional dyspnea and angina secondary to above 3 diabetes mellitus 4 hypertension 5 hyperlipidemia Plan Chest x-ray is within normal. FEV1 is nor there of 87% of predicted. The patient using incentive spirometer. We'll proceed with cardiac bypass surgery i n a.m.
[2020-04-19] MEDS ORDERED: SENNOSIDES 8.6 MG TAB PO PRN (16:11)
[2020-04-19 16:45] LABS: Glucose,Whole Blood 285 mg/dL (75-99)
[2020-04-19] MEDS: INSULIN ASPART (NovoLOG) 100 UNIT/ML VIAL SQ SCH ×2 (17:04→21:23)
[2020-04-19 20:13] LABS: Glucose,Whole Blood 271 mg/dL (75-99)
[2020-04-19] MEDS ORDERED: INSULIN DETEMIR (LEVEMIR) 100 UNIT/ML SYR SQ SCH (21:00)
--- NOTE | 2020-04-20 01:28 | P.HPIM ---
History of Present Illness H&P Date: 04/19/20 Chief Complaint: Exertional dyspnea and chest pain Patient is a 79-year-old female with a known history of hypertension, hyperlipidemia, diabetes type 2, osteoarthritis, coronary artery disease history of stent placement of the LAD presented due to shortness of breath and ex ertional chest pain. Patient underwent cardiac catheterization and found to have distal left main eccentric plague appearing to be in the range of 50% and there was critical disease involving the mid LAD. RCA showed intermediate lesion with 60% range. Circumflex was nondominant and was within the normal limits. Patient was eventually hospitalized and is being considered for coronary artery bypass surgery. Currently patient denies any complaints of chest pain or shortness of breath. No cough or sputum production. No fever no chills. Laboratory data showed WBC 6.0, hemoglobin 10.7 and platelets 213, RDW 19.4 Sodium 142, potassium 4.8, chloride 111, BUN 17 and creatinine 1.04 A1c 6.2 Hepatitis panel negative Chest x-ray showed no active cardiopulmonary disease. Review of Systems Constitutional: Patient denies any fever or chills . No generalized weakness or weight loss. Abdomen: Patient denied nausea vomiting and diarrhea and abdominal pain. Cardiovascular: Patient denies any chest pain or short of breath no palpitations.Exertional angina Respiratory: patient denied any cough or sputum production. No shortness of breath Neurologic: Patient denied any numbness or tingling headache. Musculoskeletal: Patient denies any complaints of joint swelling or deformity. Skin: Negative Psychiatric: Negative Endocrine: No heat or cold intolerance. No recent weight gain. Genitourinary: No dysuria or hematuria. 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 History of benign brain tumor. History of Any Multi-Drug Resistant Organisms: None Reported Past Surgical History: Cholecystectomy, Heart Catheterization With Stent, Orthopedic Surgery Additional Past Surgical History / Comment(s): Carpal tunnel right side, Benign brain tumor removed 1998, tumor removed from left shoulder, skin cancer removed from left leg. Past Anesthesia/Blood Transfusion Reactions: No Reported Reaction Date of Last Stent Placement:: 2010 Past Psychological History: No Psychological Hx Reported Smoking Status: Former smoker Past Alcohol Use History: Occasional Additional Past Alcohol Use History / Comment(s): Quit smoking 40 yrs ago. Past Drug Use History: None Reported - Past Family History Sister(s) Family Medical History: Cancer Additional Family Medical History / Comment(s): Lung cancer. Brother(s) Family Medical History: Cancer Additional Family Medical History / Comment(s): One brother had bladder and lung cancer. One brother had lung and brain cancer. Mother Family Medical History: Cancer Son(s) Family Medical History: Myocardial Infarction ([place]) Additional Family Medical History / Comment(s): (Only had one child) from [place] at age 59 Medications and Allergies Home Medications Medication Instructions Recorded Confirmed Type Aspirin [Adult Low Dose Aspirin EC] 81 mg PO DAILY 03/05/16 04/18/20 History Ergocalciferol [Vitamin D2 50,000 unit PO FR 03/05/16 04/12/20 History (DRISDOL)] Insulin Glargine,Hum.rec.anlog 65 units SQ HS 03/05/16 04/18/20 History [Toujeo Solostar] Metoprolol Tartrate [Lopressor] 50 mg PO BID 03/05/16 04/18/20 History gemfibroziL [Lopid] 600 mg PO AC-BID 03/06/16 04/18/20 History metFORMIN HCL 1,000 mg PO BID 03/26/18 04/18/20 History Atorvastatin [Lipitor] 40 mg PO DAILY 05/23/19 04/18/20 History Isosorbide 30 mg PO DAILY 04/12/20 04/18/20 History Losartan [Cozaar] 50 mg PO DAILY 04/18/20 04/18/20 History Allergies Allergy/AdvReac Type Severity Reaction Status Date / Time Tetanus Vaccines and Toxoid Allergy Swelling Verified 04/18/20 07:02 [Tetanus Vaccines & Toxoid] Physical Exam Vitals: Vital Signs Temp Pulse Resp BP Pulse Ox 04/19/20 04:00 97.8 F 56 L 18 163/85 95 04/19/20 02:00 18 04/19/20 00:00 97.9 F 60 18 154/72 97 04/18/20 20:00 97.9 F 63 18 168/65 96 04/18/20 15:00 98.7 F 61 18 149/68 96 04/18/20 14:30 69 04/18/20 13:38 69 18 159/71 96 Intake and Output 04/18/20 04/19/20 04/19/20 22:59 06:59 14:59 Intake Total 236 480 Output Total 0 Balance 236 480 Intake: Oral 236 480 Output: Urine 0 Other: Voiding Method Toilet Toilet # Voids 0 1 Weight 74.8 kg PHYSICAL EXAMINATION: Patient is lying in the bed comfortably, no acute distress, awake alert and oriented.. HEENT: Normocephalic. Neck is supple. Pupils reactive. Nostrils clear. Oral cavity is moist. Ears reveal no drainage. Neck reveals no JVD, carotid bruits, or thyromegaly. CHEST EXAMINATION: Trachea is central. Symmetrical expansion. Lung garcia clear to auscultation and percussion. CARDIAC: Normal S1, S2 with no gallops. No murmurs ABDOMEN: Soft. Bowel sounds normal. No organomegaly. No abdominal bruits. Extremities: reveal no edema. No clubbing or cyanosis Neurologically awake, alert, oriented x3 with well-coordinated movements. No focal deficits noted Skin: No rash or skin lesions. Psychiatric: Coperative. Nonsuicidal Musculoskeletal: No joint swelling or deformity. Normal range of motion. Results CBC & Chem 7: 04/18/20 11:40 04/18/20 11:40 Labs: Abnormal Lab Results - Last 24 Hours (Table) 04/18/20 04/18/20 04/18/20 Range/Units 11:40 11:40 11:40 Hgb 10.7 L (11.4-16.0) gm/dL Hct 31.7 L (34.0-46.0) % RDW 19.4 H (11.5-15.5) % APTT 39.1 H (22.0-30.0) sec Chloride (98-107) mmol/L Glucose (74-99) mg/dL POC Glucose (mg/dL) (75-99) mg/dL Hemoglobin A1c 6.2 H (4.0-6.0) % LDL Cholesterol, Calc (0-99) mg/dL Urine Protein (Negative) Ur Leukocyte Esterase (Negative) Urine Mucus (None) /hpf 04/18/20 04/18/20 04/18/20 Range/Units 11:40 16:49 20:26 Hgb (11.4-16.0) gm/dL Hct (34.0-46.0) % RDW (11.5-15.5) % APTT (22.0-30.0) sec Chloride 111 H (98-107) mmol/L Glucose 103 H (74-99) mg/dL POC Glucose (mg/dL) 144 H 186 H (75-99) mg/dL Hemoglobin A1c (4.0-6.0) % LDL Cholesterol, Calc 101 H (0-99) mg/dL Urine Protein (Negative) Ur Leukocyte Esterase (Negative) Urine Mucus (None) /hpf 04/19/20 04/19/20 04/19/20 Range/Units 06:18 11:33 12:15 Hgb (11.4-16.0) gm/dL Hct (34.0-46.0) % RDW (11.5-15.5) % APTT (22.0-30.0) sec Chloride (98-107) mmol/L Glucose (74-99) mg/dL POC Glucose (mg/dL) 136 H 209 H (75-99) mg/dL Hemoglobin A1c (4.0-6.0) % LDL Cholesterol, Calc (0-99) mg/dL Urine Protein 1+ H (Negative) Ur Leukocyte Esterase Moderate H (Negative) Urine Mucus Rare H (None) /hpf Microbiology - Last 24 Hours (Table) 04/18/20 16:13 Nasal Screen MRSA/MSSA - Preliminary Nasal Swab Thrombosis Risk Factor Assmnt - DVT/VTE Prophylaxis DVT/VTE Prophylaxis: Pharmacologic Prophylaxis ordered - Choose All That Apply Each Factor Represents 1 point: Medical pt on bed rest, Obesity (BMI >25) Each Risk Factor Represents 3 Points: Age 75 years or older Thrombosis Risk Factor Assessment Total Risk Factor Score: 5 Thrombosis Risk Factor Assessment Level: High Risk Assessment and Plan Assessment: Coronary artery disease and is being considered for coronary artery bypass graft. Exertional chest pain and shortness of breath. Status post cardiac catheterization. Diabetes type 2 [id number] Hypertension Hyperlipidemia Osteoarthritis GERD Varicose veins on the right leg Coronary artery disease with history of initial stent placement and 2010 Previous history of smoking Plan: Patient will be continued telemetry monitoring and statins. Aspirin is on hold. CT surgery and cardiology and pulmonary is on board. Preoperative work-up is being done. Continue to follow closely.
[2020-04-20] MEDS ORDERED: SODIUM BICARB 8.4% 50 ML SYR (1 MEQ/ML) IV ONE (05:00)
[2020-04-20] MEDS ORDERED: ASPIRIN 325 MG TAB PO ONE (05:00)
[2020-04-20] MEDS ORDERED: MANNITOL 25% 12.5 GM/50 ML VIAL IV ONE ×2 (05:00)
[2020-04-20] MEDS ORDERED: HEPARIN SODIUM,PORCINE 5,000 UNIT in SODIUM CHLORIDE 0.9% 500 ML 500 ML IV ONE (05:00)
[2020-04-20] MEDS ORDERED: PHENYLEPHRINE 10 MG/ML VIAL IV ONE (05:00)
[2020-04-20] MEDS ORDERED: HEPARIN SODIUM 1,000 UN/ML (10ML VL) IV ONE (05:00)
[2020-04-20] MEDS ORDERED: CARDIOPLEGIC SOLN (K+ 16 MEQ/L 1,000 ML with SOD BICARB SYR 8.4% (1 MEQ/ML) 20 ML, LIDO... PERFUSION NR ×3 (05:00)
[2020-04-20] MEDS ORDERED: MAGNESIUM SULFATE SYG 4.06 MEQ/ML SYRINGE IV ONE (05:00)
[2020-04-20] MEDS ORDERED: ceFAZolin 1,000 MG in SODIUM CHLORIDE 0.9% IRRIGATIO 1,000 ML IRRIGATION ONE (05:00)
[2020-04-20] MEDS ORDERED: NOREPINEPHRINE 4 MG in SODIUM CHLORIDE 0.9% 250 ML IV SCH (05:00)
[2020-04-20] MEDS ORDERED: TRANEXAMIC ACID 2,000 MG in SODIUM CHLORIDE 0.9% 80 ML IV ONE (05:00)
[2020-04-20] MEDS ORDERED: PROTAMINE SULFATE 250 MG in EMPTY BAG 1 BAG IV ONE (05:00)
[2020-04-20] MEDS ORDERED: ATORVASTATIN 10 MG TAB PO ONE (05:00)
[2020-04-20] MEDS ORDERED: PHENYLEPHRINE 40 MG in SODIUM CHLORIDE 0.9% 250 ML IV ONE (05:00)
[2020-04-20] MEDS ORDERED: CLEVIDIPINE BUTYRATE 25 MG in EMPTY BAG 1 BAG IV SCH (05:00)
[2020-04-20] MEDS ORDERED: METOPROLOL TARTRATE 12.5 MG TAB PO ONE (05:00)
[2020-04-20] MEDS ORDERED: CALCIUM CHLORIDE 100 MG/ML 10 ML SYRINGE IVP ONE (05:00)
[2020-04-20] MEDS ORDERED: ALBUMIN HUMAN 25% 50 ML in EMPTY BAG 1 BAG IVPB ONE (05:00)
[2020-04-20] MEDS ORDERED: NITROGLYCERIN-D5W PMX 50 MG in DEXTROSE/WATER 1 250ML.BAG IV SCH ×2 (05:00→12:17)
[2020-04-20] MEDS ORDERED: CHLORHEXIDINE GLUCONATE 15 ML CUP MUCOUS MEM ONE (05:00)
[2020-04-20] MEDS ORDERED: PAPAVERINE 360 MG in SODIUM CHLORIDE 0.9% 90 ML IV ONE ×2 (05:00→09:12)
[2020-04-20] MEDS ORDERED: NITROGLYCERIN-D5W PMX 25 MG/250 ML BTL IV ONE (05:00)
[2020-04-20] MEDS ORDERED: ALBUMIN HUMAN 5% 500 ML in EMPTY BAG 1 BAG IVPB ONE ×6 (05:00)
[2020-04-20] MEDS ORDERED: PROTAMINE SULFATE 10 MG/ML 25 ML VIAL IV ONE (05:00)
[2020-04-20] MEDS ORDERED: INSULIN REGULAR 100 UNIT in SODIUM CHLORIDE 0.9% 100 ML IV SCH (06:00)
[2020-04-20 06:09] LABS: Glucose,Whole Blood 166 mg/dL (75-99)
[2020-04-20] MEDS ORDERED: LACTATED RINGERS 1,000 ML IV ONE (06:28)
[2020-04-20] MEDS ORDERED: fentaNYL (PF) 50 MCG/ML 50 ML VIAL ONE (07:26)
[2020-04-20] MEDS ORDERED: SODIUM CHLORIDE 0.9% IRRIG 1,000 ML BTL IRRIGATION ONE (07:26)
[2020-04-20] MEDS ORDERED: VECURONIUM 10 MG VIAL IV ONE (07:26)
[2020-04-20] MEDS ORDERED: MIDAZOLAM 2 MG/2 ML VIAL ONE (07:26)
[2020-04-20] MEDS ORDERED: ALBUMIN HUMAN 5% (25gm) 500 ML VIAL IVPB ONE (07:26)
[2020-04-20] MEDS ORDERED: fentaNYL (PF) 50 MCG/ML 2 ML AMP ONE (07:26)
[2020-04-20] MEDS ORDERED: SODIUM CHLORIDE 0.9% 100 ML BAG ONE (07:26)
[2020-04-20] MEDS ORDERED: ceFAZolin 1,000 MG VIAL ONE (07:26)
[2020-04-20] MEDS ORDERED: PROPOFOL 10 MG/ML 20 ML VIAL IV ONE (07:26)
[2020-04-20] MEDS ORDERED: NITROGLYCERIN-D5W PMX 50 MG/250 ML BOTTLE IV ONE (07:26)
[2020-04-20] MEDS ORDERED: PROTAMINE SULFATE 10 MG/ML 5 ML VIAL IV ONE (07:26)
[2020-04-20] MEDS ORDERED: HEPARIN SODIUM,PORCINE 10,000 UNIT/ML 1 ML VIAL ONE (07:26)
[2020-04-20 08:22] LABS: ABG Base Excess -2.2 mmol/L; ABG Glucose Whole Blood 148 mg/dL (75-99); ABG HCO3 22 mmol/L (21-25); ABG Hematocrit 30 % (34.0-46.0); ABG Ionized Calcium 4.8 mg/dL (4.5-5.3); ABG Lactic Acid Whole Blood 0.9 mmol/L (0.5-1.6); ABG PCO2 36 mmHg (35-45); ABG PO2 331 mmHg (83-108); ABG Potassium Whole Blood 4.3 mmol/L (3.4-4.5); ABG Sodium Whole Blood 144 mmol/L (135-146); ABG TCO2 23 mmol/L (19-24)
--- NOTE | 2020-04-20 08:42 | P.ANPRN ---
Procedure Note - Anesthesia - Invasive Line Right Central Line Time Out Performed: Yes (707) Date of Procedure: 04/20/20 Time of Procedure: 07:08 Location of Patient: Phase I Preparation: Sterile Prep, Sterile Dressing Arterial Line Location: Radial Ultrasound Used: Yes Purpose - Visualization and Identification of Vasculature: Yes Needle Guage: 18g angio Image Stored and Saved: Yes Narrative: Central line placement per sterile protocol utilized. Anesthesia note Procedure: Right Internal jugular central venous catheter insertion: 8.5-Cymro Cordis Sterile protocol followed. Right neck prepped. Ultrasound used. Lidocaine 1% used. Using ultrasound local anesthetic was instilled site over right Internal Jugular vein. Angiocath was used to gain access via ultrasound. Once free flow non-pulsatile blood flow was confirmed, 12 inch extension tubing was then placed on Angiocath. Once central venous pressure was confirmed, J-wire was then placed through Angiocath. Angiocath was then withdrawn. Local was instilled at J-wire site. Small skin nikia was then made with provided sterile scalpel. 8.5- Cymro Cordis was then inserted over the wire while maintaining control of wire at all times. Uneventful insertion with dilation. Free flow nonpulsatile blood flow through Cordis. Hooked up to IV tubing. Secured with suture. Dressings applied. Drapes Removed. Attempts 1. Right [place] Time Out Performed: Yes (707) Date of Procedure: 04/20/20 Time of Procedure: 07:08 Location of Patient: Phase I Preparation: Sterile Prep, Sterile Dressing Arterial Line Location: Radial Ultrasound Used: No Purpose - Visualization and Identification of Vasculature: No Image Stored and Saved: No Narrative: Central line placement per sterile protocol utilized. Procedure right [place]Jessica catheter placed through right internal jugular central venous catheter Sterile protocol maintained from previous procedure. [place]Jessica catheter sterilely placed in sheath and flushed prior to insertion in right IJ Cordis. After advancing 15 cm [place]Jessica catheter was then slowly inserted with balloon up during deep inspiration. CVP waveform around 25 cm. PA waveform at around 41 cm. [place]Jessica catheter wedged around 48 cm. Balloon down. Catheter withdrawn [address] 43 cm. No wedge. Proximal and distal sites locked on sheath. Attempts x1. Sterile drapes removed and dressings applied.
[2020-04-20] MEDS ORDERED: SODIUM CHLORIDE 0.9% 500 ML 500 ML with HEPARIN SODIUM,PORCINE 5,000 UNIT IV ONE ×2 (09:11)
[2020-04-20] MEDS ORDERED: ceFAZolin 1,000 MG in SODIUM CHLORIDE 0.9% 1,000 ML IRRIGATION ONE (09:12)
[2020-04-20 09:37] LABS: ABG Base Excess -2.7 mmol/L; ABG Glucose Whole Blood 143 mg/dL (75-99); ABG HCO3 23 mmol/L (21-25); ABG Hematocrit 28 % (34.0-46.0); ABG Ionized Calcium 4.8 mg/dL (4.5-5.3); ABG Lactic Acid Whole Blood 1.2 mmol/L (0.5-1.6); ABG Oxygen Saturation 99.6 % (94-97); ABG PCO2 42 mmHg (35-45); ABG PH 7.35 (7.35-7.45); ABG PO2 207 mmHg (83-108); ABG Potassium Whole Blood 4.2 mmol/L (3.4-4.5); ABG Sodium Whole Blood 143 mmol/L (135-146); ABG TCO2 24 mmol/L (19-24)
[2020-04-20 10:40] LABS: ABG Base Excess -2.7 mmol/L; ABG Glucose Whole Blood 131 mg/dL (75-99); ABG HCO3 22 mmol/L (21-25); ABG Ionized Calcium 4.6 mg/dL (4.5-5.3); ABG Lactic Acid Whole Blood 0.5 mmol/L (0.5-1.6); ABG PCO2 35 mmHg (35-45); ABG PO2 216 mmHg (83-108); ABG Potassium Whole Blood 3.9 mmol/L (3.4-4.5); ABG Sodium Whole Blood 144 mmol/L (135-146); ABG TCO2 23 mmol/L (19-24)
[2020-04-20 11:18] LABS: ABG Base Excess -3.2 mmol/L; ABG Glucose Whole Blood 122 mg/dL (75-99); ABG HCO3 22 mmol/L (21-25); ABG Ionized Calcium 4.6 mg/dL (4.5-5.3); ABG Lactic Acid Whole Blood 1.1 mmol/L (0.5-1.6); ABG Oxygen Saturation 99.1 % (94-97); ABG PCO2 37 mmHg (35-45); ABG PH 7.37 (7.35-7.45); ABG PO2 128 mmHg (83-108); ABG Potassium Whole Blood 3.9 mmol/L (3.4-4.5); ABG Sodium Whole Blood 143 mmol/L (135-146); ABG TCO2 23 mmol/L (19-24)
[2020-04-20 11:35] LABS: ABG Hematocrit 24 % (34.0-46.0)
[2020-04-20 11:35] LABS: ABG Hematocrit 24 % (34.0-46.0)
[2020-04-20 12:15] LABS: Glucose,Whole Blood 120 mg/dL (75-99)
[2020-04-20] MEDS ORDERED: DEXTROSE 5% IN WATER 100 ML with AMIODARONE 150 MG IV PRN (12:17)
[2020-04-20] MEDS ORDERED: METOCLOPRAMIDE 5 MG/ML 2 ML VIAL IVP PRN (12:17)
[2020-04-20] MEDS ORDERED: ONDANSETRON 4 MG/2 ML VIAL IVP PRN (12:17)
[2020-04-20] MEDS ORDERED: AMIODARONE 300 MG in DEXTROSE 5% IN WATER 250 ML IV PRN ×2 (12:17)
[2020-04-20] MEDS ORDERED: AMIODARONE 360 MG in DEXTROSE 5% IN WATER 200 ML IV PRN ×2 (12:17)
[2020-04-20] MEDS ORDERED: ALBUMIN HUMAN 5% 250 ML in EMPTY BAG 1 BAG IVPB PRN (12:17)
[2020-04-20] MEDS ORDERED: Potassium Replacement Protocol 1 EACH MISC MISCELLANE PRN ×2 (12:17→14:13)
[2020-04-20] MEDS ORDERED: Phosphorus Replacement Protoco 1 EACH MISC MISCELLANE PRN (12:17)
[2020-04-20] MEDS ORDERED: BENZOCAINE/MENTHOL LOZENG 1 EACH LOZENGE MUCOUS MEM PRN (12:17)
[2020-04-20] MEDS ORDERED: hydrALAZINE HCL 20 MG/ML 1 ML VIAL IVP PRN (12:17)
[2020-04-20] MEDS ORDERED: IPRATROPIUM-ALBUTEROL 3 ML NEB INHALATION PRN (12:17)
[2020-04-20] MEDS ORDERED: Magnesium Replacement Protocol 1 EACH MISC MISCELLANE PRN ×2 (12:17→14:13)
[2020-04-20] MEDS: CLEVIDIPINE BUTYRATE 25 MG in EMPTY BAG 1 BAG IV SCH ×2 (12:20→18:00)
--- NOTE | 2020-04-20 12:22 | P.OP ---
Date of Procedure: 04/20/20 Preoperative Diagnosis: Coronary artery disease Postoperative Diagnosis: Same Procedure(s) Performed: Off-pump CABG 3 with WEBER to LAD and saphenous vein grafts to second obtuse marginal and first diagonal branches with endovascular vein harvest and ZOLTAN by anesthesia Anesthesia: ROSS Surgeon: Harish Alvarez Home Care Coordinator #1: Yash Jones Estimated Blood Loss (ml): 400 IV fluids (ml): 2,000 Urine output (ml): 500 Pathology: none sent Condition: stable Disposition: ICU Indications for Procedure: 79-year-old female presents with anginal symptomatology which has been worsening over time. Cardiac catheterization was performed on 1227 and demonstrated tight left main stenosis, tight stenosis in the LAD and diffuse moderate disease in the right coronary artery. Coronary revascularization was recommended. The patient was offered to go home or stay in house and preferred to stay in house. Appropriate workup was proceeded and the patient was brought to surgery on Operative Findings: ZOLTAN demonstrated normal valvular function with only trace mitral regurgitation, normal ventricular function. Saphenous vein was harvested from the left thigh and was of reasonable quality. Left internal mammary was an excellent conduit. There was diffuse calcific coronary disease present. Good targets were found in the LAD just distal to the third diagonal branch, in the first diagonal branch about retirement down the vessel and in the second obtuse marginal branch. The right coronary branches were very small and not worthy of bypass surgery. Description of Procedure: The patient was brought to the operating room, placed supine on the operating table, anesthetized and intubated. Lines of been placed in the preop holding area. The anterior torso and lower extremities were sterilely prepped and draped in standard fashion. ZOLTAN probe was placed. Saphenous vein was harvested from just below the knee to the groin on the left side. The greater saphenous vein was harvested. There were some areas of varicosity but these were excluded. Good segments were used. Simultaneous sternotomy was performed, the left hemisternum retracted upwards, the left internal mammary was exposed with the mammary retractor. The left internal mammary was harvested on a vascularized pedicle left intact on its origin from the subclavian and divided distally. Left pleural space was drained with 32-Dutch chest tube. Standard sternal retractor was placed. Pericardium was opened in the midline and the heart exposed pericardial sutures. Suction stabilization was used during distal anastomosis. WEBER to the LAD was performed first. The LAD was grafted in the distal portion of the middle third just beyond the takeoff of the third diagonal. Here the vessel was soft. Prior to this the vessel was heavily calcified. The patient was systemically heparinized and the ACT is maintained greater than 250 during grafting. Blood vessel was opened and blood flow control the 1.5 mm flow through. Anastomosis of the WEBER to the LAD was performed in end-to-side fashion with running 8-0 Prolene suture. On completion anastomosis the flow through was removed 50 probe the proximal distal portion anastomosis. Suture was tied with good result and hemostasis and inflow was open. The LU pedicle was tacked surrounding epicardium with 6-0 silk. Next the best piece of saphenous vein was cut to appropriately to reach the obtuse marginal and loaded on a passport anastomotic connector. Lateral wall of the heart was exposed and the second obtuse marginal was dissected out. This was the largest of the lateral wall branches. It was opened fairly proximally and end-to-side anastomosis between the saphenous vein and the second obtuse marginal was performed with running 7-0 Prolene suture. A 1.5 mm flow through was used to control the flow blood during the anastomosis was removed on its completion effectively probing the proximal distal portion anastomosis. Suture was tied with good result and hemostasis and the inflow was open and good hemostasis noted. Heart was lowered into anatomic position. The diagonal was now stabilized. Was opened distal to the visible and palpable disease. Here was 1.5 mm vessel blood flow was controlled with a 1.5 mm flow. Through. A second piece of saphenous vein was anastomosed in end-to-side fashion with with running 7-0 Prolene suture. The completion anastomosis the flow through was removed 50 probe the proximal distal portion anastomosis. Good backbleeding was noted into the vein graft and good hemostasis was noted. The vein was cut to appropriate length to exclude all the diseased segments. It was long enough to reach the fairly proximal portion of the obtuse marginal vein. Bulldogs were placed proximal and distal on the obtuse marginal vein and it was opened longitudinally. Proximal anastomosis performed in side to end fashion with running 7-0 Prolene suture. On completion anastomosis was de-aired by backbleeding and the inflow open. Graft was noted to lay well. Heparin was reversed with protamine and good hemostasis obtained throughout. The mediastinum was drained with 36-Dutch chest tube. After assuring good hemostasis the mediastinum was irrigated with antibiotic solution and the sternum closed with 8 sternal wires. Fascia was closed with 0 Ethibond. Simultaneous and subcuticular layers of the leg and chest were closed with layers of Vicryl suture. Dry sterile dressings were applied and the patient was transferred to the ICU in stable condition. No inotropic support was required throughout the operation and the patient remained hemodynamically stable throughout. No blood transfusions were needed and there was only one unit of Cell Saver to return to the patient.
[2020-04-20 12:26] LABS: ABG Base Excess -3.9 mmol/L; ABG HCO3 22 mmol/L (21-25); ABG PCO2 42 mmHg (35-45); ABG PH 7.33 (7.35-7.45); ABG PO2 260 mmHg (83-108); ABG TCO2 23 mmol/L (19-24); Allen Test Performed? Yes
[2020-04-20] MEDS ORDERED: CALCIUM GLUCONATE 2 GM in SODIUM CHLORIDE 0.9% 100 ML IVPB PRN (12:26)
[2020-04-20] MEDS ORDERED: DEXMEDETOMIDINE/0.9% NACL(PMX) 400 MCG in EMPTY BAG 1 BAG IV SCH (12:30)
[2020-04-20 12:37] LABS: Ionized Calcium 4.8 mg/dL (4.5-5.3)
[2020-04-20 12:41] LABS: Anisocytosis Slight; Basophils % (A) 1 %; Eosinophils # (A) 0.1 k/uL (0-0.7); Eosinophils % (A) 2 %; Lymphocytes % (A) 24 %; MCH 27.7 pg (25.0-35.0); MCHC 33.5 g/dL (31.0-37.0); MCV 82.8 fL (80.0-100.0); Mean Platelet Volume 7.4; Microcytosis Slight; Monocytes # (A) 0.1 k/uL (0-1.0); Monocytes % (A) 3 %; Neutrophils # (A) 2.9 k/uL (1.3-7.7); Neutrophils % (A) 69 %; Platelet Count 117 k/uL (150-450); RBC 2.78 m/uL (3.80-5.40); RDW 19.6 % (11.5-15.5); WBC 4.2 k/uL (3.8-10.6)
[2020-04-20 12:42] LABS: HGB 7.7 gm/dL (11.4-16.0)
[2020-04-20 12:46] LABS: Albumin 3.6 g/dL (3.5-5.0); Calcium 7.8 mg/dL (8.4-10.2); Magnesium 1.5 mg/dL (1.6-2.3); Potassium 3.9 mmol/L (3.5-5.1); Total Bilirubin 0.2 mg/dL (0.2-1.3); Total Protein 5.5 g/dL (6.3-8.2)
[2020-04-20 12:56] LABS: INR 1.2 (<1.2); Partial Thromboplastin Time 24.7 sec (22.0-30.0); Prothrombin Time 11.8 sec (9.0-12.0)
[2020-04-20 13:04] LABS: Glucose,Whole Blood 120 mg/dL (75-99)
--- NOTE | 2020-04-20 13:04 | XR ---
EXAMINATION TYPE: XR chest 1V portable DATE OF EXAM: 04/20/2020 Comparison: 04/18/2020 Clinical History: 79-year-old female Post Operative Cardiac Surgery Findings: ET and NG tubes are present. Mediastinal drain. Left-sided chest tube. No appreciable pneumothorax. R ight IJ [place]-Jessica catheter with tip at the proximal right main pulmonary artery. Median sternotomy wi res and post-CABG clips. Heart is enlarged. Strandy atelectasis in the mid and lower lungs. Small eff usions with left basilar opacity. Impression: Small effusions with left basilar opacity, likely postoperative atelectasis. Additional scattered str desirae areas of atelectasis.
[2020-04-20] MEDS: LACTATED RINGERS 1,000 ML IV SCH (13:56)
[2020-04-20] MEDS: ACETAMINOPHEN IV (For NPO) 1,000 MG in EMPTY BAG 1 BAG IVPB SCH ×2 (13:56→19:16)
[2020-04-20 14:05] LABS: Glucose,Whole Blood 142 mg/dL (75-99)
[2020-04-20] MEDS: INSULIN REGULAR 100 UNIT in SODIUM CHLORIDE 0.9% 100 ML IV SCH (14:05)
--- NOTE | 2020-04-20 14:11 | P.PN ---
Subjective Progress Note Date: 04/20/20 Principal diagnosis: Symptomatic coronary artery disease 79-year-old female patient with coronary artery disease and prior stenting of the LAD as well as no disease involving the RCA was experiencing shortness of breath and exertional angina. For that, the patient was given a cardiac catheterization today and the patient was found to have distal left main eccentric plaque appearing to be in the range of 50% and there was critical disease involving the mid LAD. The RCA having an intermediate lesion 60% range. The circumflex was nondominant and was within normal limits. The patient is currently hospitalized and the patient is being considered for coronary artery bypass surgery. The patient is currently hemodynamically stable. The patient has no specific complaints. The patient is known to have hypertension and hyperlipidemia and diabetes mellitus. The LDL cholesterol is at 68. No previous history of CVA. No focal neurological deficits. 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 The patient is seen today 04/20/2020 in the immediate postoperative setting. She was just transferred into the intensive care unit following an off-pump CABG 3 with a WEBER to the LAD, saphenous vein graft to the second obtuse marginal and a saphenous vein graft to the diagonal branch. She is currently intubated on mechanical ventilator. Settings SIMV of 12, tidal 5 and 400, FiO2 of 100% pressure support of 5, PEEP of 5. Arterial blood gases revealed a pO2 of 260, pCO2 42, pH 7.33. Chest x-ray reveals small effusions with left basilar op acity, likely postoperative atelectasis. Additional scattered strandy areas of atelectasis. Mediastinal drain and left chest tubes in place. Endotracheal and nasogastric tubes are present. Rate IJ [place]-Jessica catheter present. She's currently sedated on propofol at 30 mcg/kg/m. She is receiving nitroglycerin at 5 mcg/m. Lactated Ringer's at 50 MLS per hour. She is currently in normal sinus rhythm. Cardiac output 5.0, cardiac index 2.8. PA pressure 40/22. White count 4.2. Hemoglobin 7.7. Platelet count 117. INR 1.2. Sodium 141. Potassium 3.9. Bicarb 21. Creatinine 0.71. Glucose 120. Magnesium 1.5. She will be initiated on bronchodilators. Heparin for DVT prophylaxis. Objective - Vital Signs Vital signs: Vital Signs Temp 95 F L 04/20/20 12:15 Pulse 68 04/20/20 13:15 Resp 14 04/20/20 13:15 BP 127/67 04/20/20 13:15 Pulse Ox 98 04/20/20 13:15 Intake & Output 04/19/20 04/20/20 04/20/20 18:59 06:59 18:59 Intake Total 2039 100 139 Output Total 710 Balance 2039 100 -571 Weight 76.1 kg Intake: IV 100 89 0.9 CO/CI 30 0.9 Flush 3 Intake, IV Titration 50 Amount Lactated Ringers 1,000 ml 50 @ 50 mls/hr IV .Q20H LINH Rx#:[id number] Oral 2039 Output: Chest Tube Drainage 160 Chest Tube Left Pleural/ 160 Mediastinal Urine 150 Estimated Blood Loss 400 Other: Voiding Method Toilet Toilet # Voids 2 2 ABP, PAP, CO, CI - Last Documented Arterial Blood Pressure 137/48 Pulmonary Artery Pressure 39/20 Cardiac Output 5.9 Cardiac Index 3.3 - Exam GENERAL EXAM: Intubated, sedated 79-year-old female patient, appears comfortable in no apparent distress. HEAD: Normocephalic. EYES: Sluggish reaction of pupils, equal size. NOSE: Clear with pink turbinates. THROAT: Oral endotracheal and gastric tube secured in place. No erythema or exudates. NECK: No masses, no JVD. CHEST: No chest wall deformity. LUNGS: Equal air entry with faint crackles in the posterior bases. CVS: S1 and S2 normal with no audible murmur, regular rhythm. ABDOMEN: No hepatosplenomegaly, normal bowel sounds, no guarding or rigidity. SPINE: No scoliosis or deformity SKIN: No rashes CENTRAL NERVOUS SYSTEM: Sedated, no focal deficits, tone is normal in all 4 extremities. EXTREMITIES: There is no peripheral edema. No clubbing, no cyanosis. Peripheral pulses are intact. SCDs in place. - Labs CBC & Chem 7: 04/20/20 12:00 04/20/20 12:00 Labs: Abnormal Lab Results - Last 24 Hours (Table) 04/19/20 04/19/20 04/19/20 Range/Units 06:15 16:43 20:10 RBC (3.80-5.40) m/uL Hgb (11.4-16.0) gm/dL Hct (34.0-46.0) % RDW (11.5-15.5) % Plt Count (150-450) k/uL INR (<1.2) ABG pH (7.35-7.45) ABG pO2 (83-108) mmHg ABG O2 Saturation (94-97) % ABG Hematocrit (34.0-46.0) % ABG Glucose (75-99) mg/dL Hemoglobin (11.4-16.0) gm/dL Chloride (98-107) mmol/L Carbon Dioxide (22-30) mmol/L BUN (7-17) mg/dL Glucose (74-99) mg/dL POC Glucose (mg/dL) 285 H 271 H (75-99) mg/dL Calcium (8.4-10.2) mg/dL Magnesium (1.6-2.3) mg/dL Alkaline Phosphatase (38-126) U/L Total Protein (6.3-8.2) g/dL Arterial Blood Glucose (75-99) mg/dL Crossmatch See Detail 04/20/20 04/20/20 04/20/20 Range/Units 06:03 08:23 09:38 RBC (3.80-5.40) m/uL Hgb (11.4-16.0) gm/dL Hct (34.0-46.0) % RDW (11.5-15.5) % Plt Count (150-450) k/uL INR (<1.2) ABG pH (7.35-7.45) ABG pO2 331 H 207 H (83-108) mmHg ABG O2 Saturation 100.0 H 99.6 H (94-97) % ABG Hematocrit 30 L 28 L (34.0-46.0) % ABG Glucose 148 H 143 H (75-99) mg/dL Hemoglobin 9.7 L 9.1 L (11.4-16.0) gm/dL Chloride (98-107) mmol/L Carbon Dioxide (22-30) mmol/L BUN (7-17) mg/dL Glucose (74-99) mg/dL POC Glucose (mg/dL) 166 H (75-99) mg/dL Calcium (8.4-10.2) mg/dL Magnesium (1.6-2.3) mg/dL Alkaline Phosphatase (38-126) U/L Total Protein (6.3-8.2) g/dL Arterial Blood Glucose 148 H 143 H (75-99) mg/dL Crossmatch 04/20/20 04/20/20 04/20/20 Range/Units 10:41 11:19 12:00 RBC 2.78 L (3.80-5.40) m/uL Hgb 7.7 L D (11.4-16.0) gm/dL Hct 23.0 L (34.0-46.0) % RDW 19.6 H (11.5-15.5) % Plt Count 117 L (150-450) k/uL INR (<1.2) ABG pH (7.35-7.45) ABG pO2 216 H 128 H (83-108) mmHg ABG O2 Saturation 100.0 H 99.1 H (94-97) % ABG Hematocrit 24 L 24 L (34.0-46.0) % ABG Glucose 131 H 122 H (75-99) mg/dL Hemoglobin 7.8 L 7.8 L (11.4-16.0) gm/dL Chloride (98-107) mmol/L Carbon Dioxide (22-30) mmol/L BUN (7-17) mg/dL Glucose (74-99) mg/dL POC Glucose (mg/dL) (75-99) mg/dL Calcium (8.4-10.2) mg/dL Magnesium (1.6-2.3) mg/dL Alkaline Phosphatase (38-126) U/L Total Protein (6.3-8.2) g/dL Arterial Blood Glucose 131 H 122 H (75-99) mg/dL Crossmatch 04/20/20 04/20/20 04/20/20 Range/Units 12:00 12:00 12:14 RBC (3.80-5.40) m/uL Hgb (11.4-16.0) gm/dL Hct (34.0-46.0) % RDW (11.5-15.5) % Plt Count (150-450) k/uL INR 1.2 H (<1.2) ABG pH (7.35-7.45) ABG pO2 (83-108) mmHg ABG O2 Saturation (94-97) % ABG Hematocrit (34.0-46.0) % ABG Glucose (75-99) mg/dL Hemoglobin (11.4-16.0) gm/dL Chloride 113 H (98-107) mmol/L Carbon Dioxide 21 L (22-30) mmol/L BUN 18 H (7-17) mg/dL Glucose 111 H (74-99) mg/dL POC Glucose (mg/dL) 120 H (75-99) mg/dL Calcium 7.8 L (8.4-10.2) mg/dL Magnesium 1.5 L (1.6-2.3) mg/dL Alkaline Phosphatase 35 L (38-126) U/L Total Protein 5.5 L (6.3-8.2) g/dL Arterial Blood Glucose (75-99) mg/dL Crossmatch 04/20/20 04/20/20 Range/Units 12:17 13:02 RBC (3.80-5.40) m/uL Hgb (11.4-16.0) gm/dL Hct (34.0-46.0) % RDW (11.5-15.5) % Plt Count (150-450) k/uL INR (<1.2) ABG pH 7.33 L (7.35-7.45) ABG pO2 260 H (83-108) mmHg ABG O2 Saturation 100.0 H (94-97) % ABG Hematocrit (34.0-46.0) % ABG Glucose (75-99) mg/dL Hemoglobin (11.4-16.0) gm/dL Chloride (98-107) mmol/L Carbon Dioxide (22-30) mmol/L BUN (7-17) mg/dL Glucose (74-99) mg/dL POC Glucose (mg/dL) 120 H (75-99) mg/dL Calcium (8.4-10.2) mg/dL Magnesium (1.6-2.3) mg/dL Alkaline Phosphatase (38-126) U/L Total Protein (6.3-8.2) g/dL Arterial Blood Glucose (75-99) mg/dL Crossmatch Microbiology - Last 24 Hours (Table) 04/18/20 16:13 Nasal Screen MRSA/MSSA - Final Nasal Swab Assessment and Plan Assessment: 1 Symptomatically coronary artery disease with involvement of the distal left main in the range of 50% with an eccentric plaque in addition to critical disease involving the mid LAD. Status post off-pump coronary artery bypass grafting utilizing a WEBER to LAD, saphenous vein graft to the obtuse marginal and diagonal branch. Postoperative day #0. 2 Exertional dyspnea and angina secondary to above, currently intubated on the mechanical ventilator as an expected outcome of surgery 3 Diabetes mellitus 4 Hypertension 5 Hyperlipidemia Plan: The patient was seen and evaluated by Dr. Cary Chest x-ray, ABGs and labs reviewed Titrating the FiO2 down Planning to extubate within the 6 hour window We will continue to follow and make further recommendations based on her clinical status Critical care time 35 minutes I, the cosigning physician, performed a history & physical examination of the patient. Lungs sounds with faint crackles in the posterior bases. Maintaining good O2 saturations in the 90s on 100% FiO2 on the mechanical ventilator. I discussed the assessment and plan of care with my nurse practitioner, Brit Dumont. I attest to the above note as dictated by her.
[2020-04-20] MEDS: MAGNESIUM SULFATE-D5W PMX 1 GM in DEXTROSE/WATER 1 100ML.BAG IVPB SCH ×2 (14:39→17:14)
[2020-04-20] MEDS ORDERED: POTASSIUM BICARBONATE/CIT AC 20 MEQ TABLET.EFF NG-TUBE SCH (15:00)
[2020-04-20 15:16] LABS: Glucose,Whole Blood 178 mg/dL (75-99)
[2020-04-20] MEDS: IPRATROPIUM-ALBUTEROL 3 ML NEB INHALATION SCH ×4 (15:20→21:51)
[2020-04-20 16:31] LABS: Glucose,Whole Blood 171 mg/dL (75-99)
[2020-04-20 16:50] LABS: ABG Base Excess -3.8 mmol/L; ABG HCO3 21 mmol/L (21-25); ABG Oxygen Saturation 96.7 % (94-97); ABG PCO2 37 mmHg (35-45); ABG PH 7.38 (7.35-7.45); ABG PO2 92 mmHg (83-108); ABG TCO2 23 mmol/L (19-24); Allen Test Performed? Yes
[2020-04-20 17:10] LABS: Glucose,Whole Blood 183 mg/dL (75-99)
[2020-04-20] MEDS: FERROUS SULFATE 325 MG TAB PO SCH (17:13)
[2020-04-20] MEDS: ASCORBIC ACID 500 MG TAB PO SCH (17:13)
[2020-04-20 17:43] LABS: Anisocytosis Slight; Basophils % (A) 0 %; Eosinophils # (A) 0.1 k/uL (0-0.7); Eosinophils % (A) 1 %; HCT 24.6 % (34.0-46.0); HGB 8.4 gm/dL (11.4-16.0); Lymphocytes # (A) 0.6 k/uL (1.0-4.8); Lymphocytes % (A) 8 %; MCH 28.4 pg (25.0-35.0); MCHC 34.1 g/dL (31.0-37.0); MCV 83.4 fL (80.0-100.0); Mean Platelet Volume 6.9; Monocytes # (A) 0.2 k/uL (0-1.0); Monocytes % (A) 3 %; Neutrophils % (A) 87 %; Platelet Count 144 k/uL (150-450); RBC 2.95 m/uL (3.80-5.40); RDW 19.3 % (11.5-15.5); WBC 6.9 k/uL (3.8-10.6)
[2020-04-20 18:04] LABS: Glucose,Whole Blood 189 mg/dL (75-99)
[2020-04-20 19:01] LABS: Glucose,Whole Blood 184 mg/dL (75-99)
[2020-04-20] MEDS: HEPARIN SODIUM,PORCINE 5,000 UNIT/ML 1 ML VIAL SQ SCH (19:45)
[2020-04-20 20:07] LABS: Glucose,Whole Blood 153 mg/dL (75-99)
[2020-04-20 21:07] LABS: Glucose,Whole Blood 137 mg/dL (75-99)
[2020-04-20 21:59] LABS: Glucose,Whole Blood 125 mg/dL (75-99)
--- NOTE | 2020-04-20 22:16 | P.PN ---
Subjective Progress Note Date: 04/20/20 Patient is a 79-year-old female with a known history of hypertension, hyperlipidemia, diabetes type 2, osteoarthritis, coronary artery disease history of stent placement of the LAD presented due to shortness of breath and exertional chest pain. Patient underwent cardiac catheterization and found to have distal left main eccentric plague appearing to be in the range of 50% and there was critical disease involving the mid LAD. RCA showed intermediate lesion with 60% range. Circumflex was nondominant and was within the normal limits. Patient was eventually hospitalized and is being considered for co ronary artery bypass surgery. Currently patient denies any complaints of chest pain or shortness of breath. No cough or sputum production. No fever no chills. Laboratory data showed WBC 6.0, hemoglobin 10.7 and platelets 213, RDW 19.4 Sodium 142, potassium 4.8, chloride 111, BUN 17 and creatinine 1.04 A1c 6.2 Hepatitis panel negative Chest x-ray showed no active cardiopulmonary disease. 04/20/2020 Patient is status post three-vessel coronary artery bypass graft. Currently on intubated and on mechanical ventilator. Chest x-ray showed small effusions with left basilar opacity likely postoperative atelectasis. NG tube is in place and chest tubes are present. Current laboratory data showed WBC 6.9, hemoglobin 8.4 and platelets 144. Creatinine 0.71 and INR 1.2 continued on GI and DVT pr ophylaxis. Pulmonary and CT surgery is on board. Blood sugar is fairly controlled. Current medications reviewed. Objective - Vital Signs Vital signs: Vital Signs Temp 96.6 F L 04/20/20 14:00 Pulse 68 04/20/20 14:15 Resp 18 04/20/20 14:15 BP 127/67 04/20/20 13:15 Pulse Ox 93 L 04/20/20 14:15 Intake & Output 04/19/20 04/20/20 04/20/20 18:59 06:59 18:59 Intake Total 2039 100 476 Output Total 880 Balance 2039 100 -404 Weight 76.1 kg Intake: IV 100 176 0.9 CO/CI 90 0.9 Flush 30 Intake, IV Titration 300 Amount ACETAMINOPHEN IV (For NPO 100 ) 1,000 mg In Empty Bag 1 bag @ 400 mls/hr IVPB Q6H [facility] Rx#:[id number] Lactated Ringers 1,000 ml 200 @ 50 mls/hr IV .Q20H [facility] Rx#:[id number] Oral 2039 Output: Chest Tube Drainage 330 Chest Tube Left Pleural/ 330 Mediastinal Urine 150 Estimated Blood Loss 400 Other: Voiding Method Toilet Toilet Indwelling Catheter # Voids 2 2 ABP, PAP, CO, CI - Last Documented Arterial Blood Pressure 136/56 Pulmonary Artery Pressure 45/25 Cardiac Output 5.9 Cardiac Index 3.3 - Exam PHYSICAL EXAMINATION: Patient is lying in the bed comfortably,. Currently sedated and on mechanical ventilator. HEENT: Normocephalic. Neck is supple. Pupils reactive. Nostrils clear. Oral cavity is moist. Ears reveal no drainage. Neck reveals no JVD, carotid bruits, or thyromegaly. CHEST EXAMINATION: Trachea is central. Symmetrical expansion. Bibasilar diminished air entry and chest tubes present. CARDIAC: Normal S1, S2 with no gallops. No murmurs ABDOMEN: Soft.Nondistended. Bowel sounds normal. No organomegaly. No abdominal bruits. Extremities: reveal no edema. No clubbing or cyanosis Neurologically Currently sedated and on mechanical ventilator.. No focal deficits noted Skin: No rash or skin lesions. Psychiatric: Could not be assessed completely. Musculoskeletal: No joint swelling or deformity. - Labs CBC & Chem 7: 04/20/20 17:32 04/20/20 12:00 Labs: Abnormal Lab Results - Last 24 Hours (Table) 04/19/20 04/19/20 04/19/20 Range/Units 06:15 16:43 20:10 RBC (3.80-5.40) m/uL Hgb (11.4-16.0) gm/dL Hct (34.0-46.0) % RDW (11.5-15.5) % Plt Count (150-450) k/uL INR (<1.2) ABG pH (7.35-7.45) ABG pO2 (83-108) mmHg ABG O2 Saturation (94-97) % ABG Hematocrit (34.0-46.0) % ABG Glucose (75-99) mg/dL Hemoglobin (11.4-16.0) gm/dL Chloride (98-107) mmol/L Carbon Dioxide (22-30) mmol/L BUN (7-17) mg/dL Glucose (74-99) mg/dL POC Glucose (mg/dL) 285 H 271 H (75-99) mg/dL Calcium (8.4-10.2) mg/dL Magnesium (1.6-2.3) mg/dL Alkaline Phosphatase (38-126) U/L Total Protein (6.3-8.2) g/dL Arterial Blood Glucose (75-99) mg/dL Crossmatch See Detail 04/20/20 04/20/20 04/20/20 Range/Units 06:03 08:23 09:38 RBC (3.80-5.40) m/uL Hgb (11.4-16.0) gm/dL Hct (34.0-46.0) % RDW (11.5-15.5) % Plt Count (150-450) k/uL INR (<1.2) ABG pH (7.35-7.45) ABG pO2 331 H 207 H (83-108) mmHg ABG O2 Saturation 100.0 H 99.6 H (94-97) % ABG Hematocrit 30 L 28 L (34.0-46.0) % ABG Glucose 148 H 143 H (75-99) mg/dL Hemoglobin 9.7 L 9.1 L (11.4-16.0) gm/dL Chloride (98-107) mmol/L Carbon Dioxide (22-30) mmol/L BUN (7-17) mg/dL Glucose (74-99) mg/dL POC Glucose (mg/dL) 166 H (75-99) mg/dL Calcium (8.4-10.2) mg/dL Magnesium (1.6-2.3) mg/dL Alkaline Phosphatase (38-126) U/L Total Protein (6.3-8.2) g/dL Arterial Blood Glucose 148 H 143 H (75-99) mg/dL Crossmatch 04/20/20 04/20/20 04/20/20 Range/Units 10:41 11:19 12:00 RBC 2.78 L (3.80-5.40) m/uL Hgb 7.7 L D (11.4-16.0) gm/dL Hct 23.0 L (34.0-46.0) % RDW 19.6 H (11.5-15.5) % Plt Count 117 L (150-450) k/uL INR (<1.2) ABG pH (7.35-7.45) ABG pO2 216 H 128 H (83-108) mmHg ABG O2 Saturation 100.0 H 99.1 H (94-97) % ABG Hematocrit 24 L 24 L (34.0-46.0) % ABG Glucose 131 H 122 H (75-99) mg/dL Hemoglobin 7.8 L 7.8 L (11.4-16.0) gm/dL Chloride (98-107) mmol/L Carbon Dioxide (22-30) mmol/L BUN (7-17) mg/dL Glucose (74-99) mg/dL POC Glucose (mg/dL) (75-99) mg/dL Calcium (8.4-10.2) mg/dL Magnesium (1.6-2.3) mg/dL Alkaline Phosphatase (38-126) U/L Total Protein (6.3-8.2) g/dL Arterial Blood Glucose 131 H 122 H (75-99) mg/dL Crossmatch 04/20/20 04/20/20 04/20/20 Range/Units 12:00 12:00 12:14 RBC (3.80-5.40) m/uL Hgb (11.4-16.0) gm/dL Hct (34.0-46.0) % RDW (11.5-15.5) % Plt Count (150-450) k/uL INR 1.2 H (<1.2) ABG pH (7.35-7.45) ABG pO2 (83-108) mmHg ABG O2 Saturation (94-97) % ABG Hematocrit (34.0-46.0) % ABG Glucose (75-99) mg/dL Hemoglobin (11.4-16.0) gm/dL Chloride 113 H (98-107) mmol/L Carbon Dioxide 21 L (22-30) mmol/L BUN 18 H (7-17) mg/dL Glucose 111 H (74-99) mg/dL POC Glucose (mg/dL) 120 H (75-99) mg/dL Calcium 7.8 L (8.4-10.2) mg/dL Magnesium 1.5 L (1.6-2.3) mg/dL Alkaline Phosphatase 35 L (38-126) U/L Total Protein 5.5 L (6.3-8.2) g/dL Arterial Blood Glucose (75-99) mg/dL Crossmatch 04/20/20 04/20/20 04/20/20 Range/Units 12:17 13:02 14:04 RBC (3.80-5.40) m/uL Hgb (11.4-16.0) gm/dL Hct (34.0-46.0) % RDW (11.5-15.5) % Plt Count (150-450) k/uL INR (<1.2) ABG pH 7.33 L (7.35-7.45) ABG pO2 260 H (83-108) mmHg ABG O2 Saturation 100.0 H (94-97) % ABG Hematocrit (34.0-46.0) % ABG Glucose (75-99) mg/dL Hemoglobin (11.4-16.0) gm/dL Chloride (98-107) mmol/L Carbon Dioxide (22-30) mmol/L BUN (7-17) mg/dL Glucose (74-99) mg/dL POC Glucose (mg/dL) 120 H 142 H (75-99) mg/dL Calcium (8.4-10.2) mg/dL Magnesium (1.6-2.3) mg/dL Alkaline Phosphatase (38-126) U/L Total Protein (6.3-8.2) g/dL Arterial Blood Glucose (75-99) mg/dL Crossmatch Microbiology - Last 24 Hours (Table) 04/18/20 16:13 Nasal Screen MRSA/MSSA - Final Nasal Swab Assessment and Plan Assessment: Coronary artery disease s/p triple vessel coronary artery bypass graft. POD 0 Exertional chest pain and shortness of breath. Status post cardiac catheterization. Diabetes type 2 [id number] Hypertension Hyperlipidemia Osteoarthritis GERD Varicose veins on the right leg Coronary artery disease with history of initial stent placement and 2010 Previous history of smoking GI and DVT prophylaxis. Plan: Patient will be continued telemetry monitoring and statins. Aspirin is on hold. Continue with bronchodilators. Insulin sliding scale. CT surgery and cardiology and pulmonary is on board. Preoperative work-up is being done. Continue to follow closely. Time with Patient: Greater than 30
[2020-04-20 22:56] LABS: Glucose,Whole Blood 124 mg/dL (75-99)
[2020-04-20] MEDS ORDERED: HYDROcodone/APAP 5-325MG 1 EACH TAB PO PRN (23:58)
[2020-04-21 00:02] LABS: Glucose,Whole Blood 99 mg/dL (75-99)
[2020-04-21 00:58] LABS: Glucose,Whole Blood 116 mg/dL (75-99)
[2020-04-21] MEDS: HYDROcodone/APAP 5-325MG 1 EACH TAB PO PRN ×2 (00:59→05:00)
[2020-04-21 01:54] LABS: Glucose,Whole Blood 172 mg/dL (75-99)
[2020-04-21 02:59] LABS: Glucose,Whole Blood 183 mg/dL (75-99)
[2020-04-21 04:15] LABS: Glucose,Whole Blood 149 mg/dL (75-99)
[2020-04-21 04:25] LABS: Anisocytosis Slight; Basophils % (A) 0 %; Eosinophils % (A) 0 %; HCT 24.1 % (34.0-46.0); HGB 8.6 gm/dL (11.4-16.0); Hypochromasia Slight; Lymphocytes # (A) 0.8 k/uL (1.0-4.8); Lymphocytes % (A) 12 %; MCH 29.8 pg (25.0-35.0); MCHC 35.5 g/dL (31.0-37.0); Mean Platelet Volume 7.2; Monocytes # (A) 0.3 k/uL (0-1.0); Monocytes % (A) 4 %; Neutrophils # (A) 5.1 k/uL (1.3-7.7); Neutrophils % (A) 82 %; Platelet Count 167 k/uL (150-450); RBC 2.87 m/uL (3.80-5.40); RDW 19.4 % (11.5-15.5); WBC 6.2 k/uL (3.8-10.6)
[2020-04-21 04:29] LABS: Ionized Calcium 4.7 mg/dL (4.5-5.3)
[2020-04-21 04:39] LABS: Albumin 3.3 g/dL (3.5-5.0); Calcium 8.1 mg/dL (8.4-10.2); Magnesium 2.1 mg/dL (1.6-2.3); Total Bilirubin 0.2 mg/dL (0.2-1.3); Total Protein 5.4 g/dL (6.3-8.2)
[2020-04-21 04:50] LABS: Glucose,Whole Blood 129 mg/dL (75-99)
[2020-04-21] MEDS: HEPARIN SODIUM,PORCINE 5,000 UNIT/ML 1 ML VIAL SQ SCH ×3 (05:00→21:15)
[2020-04-21 05:08] LABS: Glucose,Whole Blood 123 mg/dL (75-99)
[2020-04-21] MEDS: CLEVIDIPINE BUTYRATE 25 MG in EMPTY BAG 1 BAG IV SCH (05:16)
[2020-04-21 05:58] LABS: Glucose,Whole Blood 117 mg/dL (75-99)
[2020-04-21 06:49] LABS: Glucose,Whole Blood 137 mg/dL (75-99)
[2020-04-21] MEDS: INSULIN REGULAR 100 UNIT in SODIUM CHLORIDE 0.9% 100 ML IV SCH ×2 (06:50→19:12)
[2020-04-21] MEDS: FERROUS SULFATE 325 MG TAB PO SCH ×2 (06:55→18:25)
[2020-04-21] MEDS: ASCORBIC ACID 500 MG TAB PO SCH ×2 (06:56→18:25)
--- NOTE | 2020-04-21 07:35 | P.PN ---
Subjective Progress Note Date: 04/21/20 Principal diagnosis: Severe coronary artery disease this is an 79-year-old female patient was coronary artery disease and prior stenting of the LAD as well as hypertension and dyslipidemia was experiencing symptoms of shortness of breath with exertion concerning for angina. She underwent a heart catheterization and that revealed severe disease involving the left main coronary artery. She underwent yesterday CABG 3 was WEBER to LAD and SVG to diagonal and SVG to OM. This is postoperative patient day #1. The patient was extubated yesterday. She is hemodynamically stable and as a matter of fact she is slightly hypertensive. She is on maximize medical treatment. I will suggest increase the dose of Lipitor to 80 mg by mouth daily at bedtime down the line. The chest x-ray showed small bilateral pleural effusion. Urine output has been reasonable. The patient has been maintaining normal sinus mechanism Objective - Vital Signs Vital signs: Vital Signs Temp 99.4 F 04/21/20 04:00 Pulse 81 04/21/20 07:00 Resp 29 H 04/21/20 07:00 BP 110/61 04/21/20 07:00 Pulse Ox 93 L 04/21/20 07:00 Intake & Output 04/20/20 04/21/20 04/21/20 18:59 06:59 18:59 Intake Total 0484.032 5153.110 202.5 Output Total 1595 1190 110 Balance -469.990 -0.890 92.5 Weight 76.9 kg Intake: IV 272 196.5 2.5 0.9 CO/CI 150 160 0.9 Flush 66 9 Nitro 27.5 2.5 Intake, IV Titration 853.010 842.610 50 Amount ACETAMINOPHEN IV (For NPO 100 100 ) 1,000 mg In Empty Bag 1 bag @ 400 mls/hr IVPB Q6H [facility] Rx#:[id number] Clevidipine Butyrate 25 20.733 32.867 mg In Empty Bag 1 bag @ 1 MG/HR 2 mls/hr IV .Q24H [facility] Rx#:[id number] Insulin Regular 100 unit 11.884 59.743 In Sodium Chloride 0.9% 100 ml @ Per Protocol IV .Q0M [facility] Rx#:[id number] Lactated Ringers 1,000 ml 400 600 50 @ 20 mls/hr IV .Q24H [facility] Rx#:[id number] Magnesium Sulfate-D5w Pmx 200 1 gm In Dextrose/Water 1 100ml.bag @ 100 mls/hr IVPB Q1H [facility] Rx#: [id number] ceFAZolin 2 gm In Sodium 50 50 Chloride 0.9% 50 ml @ 100 mls/hr IVPB Q8HR [facility] Rx# :[id number] propofoL 1,000 mg In 70.393 Empty Bag 1 bag @ Titrate IV .Q0M [facility] Rx#: [id number] Oral 150 150 Output: Chest Tube Drainage 760 540 40 Chest Tube Left Pleural/ 760 540 40 Mediastinal Urine 435 650 70 Estimated Blood Loss 400 Other: Voiding Method Indwelling Catheter Indwelling Catheter ABP, PAP, CO, CI - Last Documented Arterial Blood Pressure 116/69 Pulmonary Artery Pressure 26/8 Cardiac Output 5.7 Cardiac Index 3.2 - Constitutional General appearance: Present: no acute distress - Respiratory Respiratory: bilateral: diminished - Cardiovascular Rhythm: regular Heart sounds: normal: S1, S2 - Labs CBC & Chem 7: 04/21/20 04:00 04/21/20 04:00 Labs: Abnormal Lab Results - Last 24 Hours (Table) 04/19/20 04/20/20 04/20/20 Range/Units 06:15 08:23 09:38 RBC (3.80-5.40) m/uL Hgb (11.4-16.0) gm/dL Hct (34.0-46.0) % RDW (11.5-15.5) % Plt Count (150-450) k/uL Lymphocytes # (1.0-4.8) k/uL INR (<1.2) ABG pH (7.35-7.45) ABG pO2 331 H 207 H (83-108) mmHg ABG O2 Saturation 100.0 H 99.6 H (94-97) % ABG Hematocrit 30 L 28 L (34.0-46.0) % ABG Glucose 148 H 143 H (75-99) mg/dL Hemoglobin 9.7 L 9.1 L (11.4-16.0) gm/dL Sodium (137-145) mmol/L Chloride (98-107) mmol/L Carbon Dioxide (22-30) mmol/L BUN (7-17) mg/dL Glucose (74-99) mg/dL POC Glucose (mg/dL) (75-99) mg/dL Calcium (8.4-10.2) mg/dL Magnesium (1.6-2.3) mg/dL Alkaline Phosphatase (38-126) U/L Total Protein (6.3-8.2) g/dL Albumin (3.5-5.0) g/dL Arterial Blood Glucose 148 H 143 H (75-99) mg/dL Crossmatch See Detail 04/20/20 04/20/20 04/20/20 Range/Units 10:41 11:19 12:00 RBC 2.78 L (3.80-5.40) m/uL Hgb 7.7 L D (11.4-16.0) gm/dL Hct 23.0 L (34.0-46.0) % RDW 19.6 H (11.5-15.5) % Plt Count 117 L (150-450) k/uL Lymphocytes # (1.0-4.8) k/uL INR (<1.2) ABG pH (7.35-7.45) ABG pO2 216 H 128 H (83-108) mmHg ABG O2 Saturation 100.0 H 99.1 H (94-97) % ABG Hematocrit 24 L 24 L (34.0-46.0) % ABG Glucose 131 H 122 H (75-99) mg/dL Hemoglobin 7.8 L 7.8 L (11.4-16.0) gm/dL Sodium (137-145) mmol/L Chloride (98-107) mmol/L Carbon Dioxide (22-30) mmol/L BUN (7-17) mg/dL Glucose (74-99) mg/dL POC Glucose (mg/dL) (75-99) mg/dL Calcium (8.4-10.2) mg/dL Magnesium (1.6-2.3) mg/dL Alkaline Phosphatase (38-126) U/L Total Protein (6.3-8.2) g/dL Albumin (3.5-5.0) g/dL Arterial Blood Glucose 131 H 122 H (75-99) mg/dL Crossmatch 04/20/20 04/20/20 04/20/20 Range/Units 12:00 12:00 12:14 RBC (3.80-5.40) m/uL Hgb (11.4-16.0) gm/dL Hct (34.0-46.0) % RDW (11.5-15.5) % Plt Count (150-450) k/uL Lymphocytes # (1.0-4.8) k/uL INR 1.2 H (<1.2) ABG pH (7.35-7.45) ABG pO2 (83-108) mmHg ABG O2 Saturation (94-97) % ABG Hematocrit (34.0-46.0) % ABG Glucose (75-99) mg/dL Hemoglobin (11.4-16.0) gm/dL Sodium (137-145) mmol/L Chloride 113 H (98-107) mmol/L Carbon Dioxide 21 L (22-30) mmol/L BUN 18 H (7-17) mg/dL Glucose 111 H (74-99) mg/dL POC Glucose (mg/dL) 120 H (75-99) mg/dL Calcium 7.8 L (8.4-10.2) mg/dL Magnesium 1.5 L (1.6-2.3) mg/dL Alkaline Phosphatase 35 L (38-126) U/L Total Protein 5.5 L (6.3-8.2) g/dL Albumin (3.5-5.0) g/dL Arterial Blood Glucose (75-99) mg/dL Crossmatch 04/20/20 04/20/20 04/20/20 Range/Units 12:17 13:02 14:04 RBC (3.80-5.40) m/uL Hgb (11.4-16.0) gm/dL Hct (34.0-46.0) % RDW (11.5-15.5) % Plt Count (150-450) k/uL Lymphocytes # (1.0-4.8) k/uL INR (<1.2) ABG pH 7.33 L (7.35-7.45) ABG pO2 260 H (83-108) mmHg ABG O2 Saturation 100.0 H (94-97) % ABG Hematocrit (34.0-46.0) % ABG Glucose (75-99) mg/dL Hemoglobin (11.4-16.0) gm/dL Sodium (137-145) mmol/L Chloride (98-107) mmol/L Carbon Dioxide (22-30) mmol/L BUN (7-17) mg/dL Glucose (74-99) mg/dL POC Glucose (mg/dL) 120 H 142 H (75-99) mg/dL Calcium (8.4-10.2) mg/dL Magnesium (1.6-2.3) mg/dL Alkaline Phosphatase (38-126) U/L Total Protein (6.3-8.2) g/dL Albumin (3.5-5.0) g/dL Arterial Blood Glucose (75-99) mg/dL Crossmatch 04/20/20 04/20/20 04/20/20 Range/Units 15:14 16:13 17:09 RBC (3.80-5.40) m/uL Hgb (11.4-16.0) gm/dL Hct (34.0-46.0) % RDW (11.5-15.5) % Plt Count (150-450) k/uL Lymphocytes # (1.0-4.8) k/uL INR (<1.2) ABG pH (7.35-7.45) ABG pO2 (83-108) mmHg ABG O2 Saturation (94-97) % ABG Hematocrit (34.0-46.0) % ABG Glucose (75-99) mg/dL Hemoglobin (11.4-16.0) gm/dL Sodium (137-145) mmol/L Chloride (98-107) mmol/L Carbon Dioxide (22-30) mmol/L BUN (7-17) mg/dL Glucose (74-99) mg/dL POC Glucose (mg/dL) 178 H 171 H 183 H (75-99) mg/dL Calcium (8.4-10.2) mg/dL Magnesium (1.6-2.3) mg/dL Alkaline Phosphatase (38-126) U/L Total Protein (6.3-8.2) g/dL Albumin (3.5-5.0) g/dL Arterial Blood Glucose (75-99) mg/dL Crossmatch 04/20/20 04/20/20 04/20/20 Range/Units 17:32 18:03 18:59 RBC 2.95 L (3.80-5.40) m/uL Hgb 8.4 L (11.4-16.0) gm/dL Hct 24.6 L (34.0-46.0) % RDW 19.3 H (11.5-15.5) % Plt Count 144 L (150-450) k/uL Lymphocytes # 0.6 L (1.0-4.8) k/uL INR (<1.2) ABG pH (7.35-7.45) ABG pO2 (83-108) mmHg ABG O2 Saturation (94-97) % ABG Hematocrit (34.0-46.0) % ABG Glucose (75-99) mg/dL Hemoglobin (11.4-16.0) gm/dL Sodium (137-145) mmol/L Chloride (98-107) mmol/L Carbon Dioxide (22-30) mmol/L BUN (7-17) mg/dL Glucose (74-99) mg/dL POC Glucose (mg/dL) 189 H 184 H (75-99) mg/dL Calcium (8.4-10.2) mg/dL Magnesium (1.6-2.3) mg/dL Alkaline Phosphatase (38-126) U/L Total Protein (6.3-8.2) g/dL Albumin (3.5-5.0) g/dL Arterial Blood Glucose (75-99) mg/dL Crossmatch 04/20/20 04/20/20 04/20/20 Range/Units 20:06 21:05 21:58 RBC (3.80-5.40) m/uL Hgb (11.4-16.0) gm/dL Hct (34.0-46.0) % RDW (11.5-15.5) % Plt Count (150-450) k/uL Lymphocytes # (1.0-4.8) k/uL INR (<1.2) ABG pH (7.35-7.45) ABG pO2 (83-108) mmHg ABG O2 Saturation (94-97) % ABG Hematocrit (34.0-46.0) % ABG Glucose (75-99) mg/dL Hemoglobin (11.4-16.0) gm/dL Sodium (137-145) mmol/L Chloride (98-107) mmol/L Carbon Dioxide (22-30) mmol/L BUN (7-17) mg/dL Glucose (74-99) mg/dL POC Glucose (mg/dL) 153 H 137 H 125 H (75-99) mg/dL Calcium (8.4-10.2) mg/dL Magnesium (1.6-2.3) mg/dL Alkaline Phosphatase (38-126) U/L Total Protein (6.3-8.2) g/dL Albumin (3.5-5.0) g/dL Arterial Blood Glucose (75-99) mg/dL Crossmatch 04/20/20 04/21/20 04/21/20 Range/Units 22:55 00:57 01:53 RBC (3.80-5.40) m/uL Hgb (11.4-16.0) gm/dL Hct (34.0-46.0) % RDW (11.5-15.5) % Plt Count (150-450) k/uL Lymphocytes # (1.0-4.8) k/uL INR (<1.2) ABG pH (7.35-7.45) ABG pO2 (83-108) mmHg ABG O2 Saturation (94-97) % ABG Hematocrit (34.0-46.0) % ABG Glucose (75-99) mg/dL Hemoglobin (11.4-16.0) gm/dL Sodium (137-145) mmol/L Chloride (98-107) mmol/L Carbon Dioxide (22-30) mmol/L BUN (7-17) mg/dL Glucose (74-99) mg/dL POC Glucose (mg/dL) 124 H 116 H 172 H (75-99) mg/dL Calcium (8.4-10.2) mg/dL Magnesium (1.6-2.3) mg/dL Alkaline Phosphatase (38-126) U/L Total Protein (6.3-8.2) g/dL Albumin (3.5-5.0) g/dL Arterial Blood Glucose (75-99) mg/dL Crossmatch 04/21/20 04/21/20 04/21/20 Range/Units 02:57 04:00 04:00 RBC 2.87 L (3.80-5.40) m/uL Hgb 8.6 L (11.4-16.0) gm/dL Hct 24.1 L (34.0-46.0) % RDW 19.4 H (11.5-15.5) % Plt Count (150-450) k/uL Lymphocytes # 0.8 L (1.0-4.8) k/uL INR (<1.2) ABG pH (7.35-7.45) ABG pO2 (83-108) mmHg ABG O2 Saturation (94-97) % ABG Hematocrit (34.0-46.0) % ABG Glucose (75-99) mg/dL Hemoglobin (11.4-16.0) gm/dL Sodium 136 L (137-145) mmol/L Chloride 109 H (98-107) mmol/L Carbon Dioxide 21 L (22-30) mmol/L BUN 18 H (7-17) mg/dL Glucose 138 H (74-99) mg/dL POC Glucose (mg/dL) 183 H (75-99) mg/dL Calcium 8.1 L (8.4-10.2) mg/dL Magnesium (1.6-2.3) mg/dL Alkaline Phosphatase 35 L (38-126) U/L Total Protein 5.4 L (6.3-8.2) g/dL Albumin 3.3 L (3.5-5.0) g/dL Arterial Blood Glucose (75-99) mg/dL Crossmatch 04/21/20 04/21/20 04/21/20 Range/Units 04:14 04:47 05:07 RBC (3.80-5.40) m/uL Hgb (11.4-16.0) gm/dL Hct (34.0-46.0) % RDW (11.5-15.5) % Plt Count (150-450) k/uL Lymphocytes # (1.0-4.8) k/uL INR (<1.2) ABG pH (7.35-7.45) ABG pO2 (83-108) mmHg ABG O2 Saturation (94-97) % ABG Hematocrit (34.0-46.0) % ABG Glucose (75-99) mg/dL Hemoglobin (11.4-16.0) gm/dL Sodium (137-145) mmol/L Chloride (98-107) mmol/L Carbon Dioxide (22-30) mmol/L BUN (7-17) mg/dL Glucose (74-99) mg/dL POC Glucose (mg/dL) 149 H 129 H 123 H (75-99) mg/dL Calcium (8.4-10.2) mg/dL Magnesium (1.6-2.3) mg/dL Alkaline Phosphatase (38-126) U/L Total Protein (6.3-8.2) g/dL Albumin (3.5-5.0) g/dL Arterial Blood Glucose (75-99) mg/dL Crossmatch 04/21/20 04/21/20 Range/Units 05:57 06:47 RBC (3.80-5.40) m/uL Hgb (11.4-16.0) gm/dL Hct (34.0-46.0) % RDW (11.5-15.5) % Plt Count (150-450) k/uL Lymphocytes # (1.0-4.8) k/uL INR (<1.2) ABG pH (7.35-7.45) ABG pO2 (83-108) mmHg ABG O2 Saturation (94-97) % ABG Hematocrit (34.0-46.0) % ABG Glucose (75-99) mg/dL Hemoglobin (11.4-16.0) gm/dL Sodium (137-145) mmol/L Chloride (98-107) mmol/L Carbon Dioxide (22-30) mmol/L BUN (7-17) mg/dL Glucose (74-99) mg/dL POC Glucose (mg/dL) 117 H 137 H (75-99) mg/dL Calcium (8.4-10.2) mg/dL Magnesium (1.6-2.3) mg/dL Alkaline Phosphatase (38-126) U/L Total Protein (6.3-8.2) g/dL Albumin (3.5-5.0) g/dL Arterial Blood Glucose (75-99) mg/dL Crossmatch Assessment and Plan Assessment: Assessment #1 severe coronary artery disease and status post CABG #2 prior coronary revascularization with stenting #3 hypertension #4 dyslipidemia #5 carotid disease Plan #1 continue the current medical regimen #2 suggest to increase the dose of Lipitor to 80 mg by mouth daily at bedtime down the line #3 follow-up with the patient
[2020-04-21] MEDS: IPRATROPIUM-ALBUTEROL 3 ML NEB INHALATION SCH ×4 (07:51→22:05)
--- NOTE | 2020-04-21 08:25 | XR ---
EXAMINATION TYPE: XR chest 1V portable DATE OF EXAM: 04/21/2020 Comparison: 04/20/2020 Clinical History: 79-year-old female Post Operative Cardiac Surgery Findings: [place] catheter tip within the distal right main pulmonary artery. Mediastinal drain is in place. Median sternotomy wires and postoperative clips in the mediastinum. Left basilar chest tube demonstra quang. Trace effusions may remain, improved from prior exam, particularly on the left. Patchy opacities at the lung bases, left greater than right persists. New left apical pneumothorax measuring 6 mm. De velopment of some subcutaneous emphysema along the left chest wall. Impression: 1. Left-sided chest tube in place but with a new 6 mm left apical pneumothorax. 2. Trace effusions remain, improving on the left. Bibasilar patchy opacities, likely atelectasis pers ist.
[2020-04-21 08:32] LABS: Glucose,Whole Blood 230 mg/dL (75-99)
[2020-04-21] MEDS: CLOPIDOGREL 75 MG TAB PO SCH (08:38)
[2020-04-21] MEDS: ASPIRIN 325 MG TAB PO SCH (08:38)
[2020-04-21] MEDS: METOPROLOL TARTRATE 12.5 MG TAB PO SCH ×2 (08:39→21:16)
[2020-04-21] MEDS: KETOROLAC 15 MG/ML 1 ML VIAL IVP SCH ×3 (08:39→18:25)
[2020-04-21] MEDS: LACTATED RINGERS 1,000 ML IV SCH (08:40)
[2020-04-21] MEDS ORDERED: ATORVASTATIN 40 MG TAB PO SCH (09:00)
[2020-04-21] MEDS ORDERED: METOPROLOL TARTRATE 12.5 MG TAB PO SCH (09:00)
[2020-04-21] MEDS ORDERED: MAGNESIUM HYDROXIDE 2,400 MG/10 ML CUP PO PRN (09:00)
[2020-04-21] MEDS ORDERED: PANTOPRAZOLE 40 MG/10 ML VIAL IVP SCH (09:00)
[2020-04-21] MEDS ORDERED: bisacodyL 10 MG SUPP RECTAL PRN (09:00)
--- NOTE | 2020-04-21 09:16 | P.PN ---
Subjective Progress Note Date: 04/21/20 Principal diagnosis: Symptomatic coronary artery disease with left main disease, unstable angina. 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 POD #1 off-pump coronary artery bypass grafting 3 with the left internal mammary artery to left anterior descending artery, greater saphenous vein grafts to the second obtuse marginal and first diagonal branches, endovascular vein harvest of the left greater saphenous vein from below the knee to the groin level, and intraoperative transesophageal echocardiogram performed by anesthesia. Postoperative acute blood loss anemia, expected given patient's preoperative chronic anemia The patient is currently sitting up in a recliner in the intensive care unit in no acute distress. She was successfully extubated last night at 17:00. She does complain of post surgical chest discomfort which is controlled on current medication regimen. Denies shortness of breath. Actively using incentive spirometer although only achieving 500-750 mL, weak cough. She remains in normal sinus rhythm and hemodynamically stable on a touch of Cleviprex for hypertension. Right internal jugular Norris/Cordis, right radial arterial line, mediastinal and left pleural chest tubes remain. No new acute issues. Objective - Vital Signs Vital signs: Vital Signs Temp 99.0 F 04/21/20 08:00 Pulse 82 04/21/20 08:00 Resp 17 04/21/20 08:00 BP 137/65 04/21/20 08:00 Pulse Ox 94 L 04/21/20 08:00 Intake & Output 04/20/20 04/21/20 04/21/20 18:59 06:59 18:59 Intake Total 9216.420 2494.110 269.151 Output Total 1595 1190 180 Balance -469.990 -0.890 89.151 Weight 76.9 kg Intake: IV 272 196.5 41.5 0.9 CO/CI 150 160 30 0.9 Flush 66 9 9 Nitro 27.5 2.5 Intake, IV Titration 853.010 842.610 77.651 Amount ACETAMINOPHEN IV (For NPO 100 100 ) 1,000 mg In Empty Bag 1 bag @ 400 mls/hr IVPB Q6H [facility] Rx#:[id number] Clevidipine Butyrate 25 20.733 32.867 mg In Empty Bag 1 bag @ 1 MG/HR 2 mls/hr IV .Q24H [facility] Rx#:[id number] Insulin Regular 100 unit 11.884 59.743 7.651 In Sodium Chloride 0.9% 100 ml @ Per Protocol IV .Q0M [facility] Rx#:[id number] Lactated Ringers 1,000 ml 400 600 70 @ 20 mls/hr IV .Q24H [facility] Rx#:[id number] Magnesium Sulfate-D5w Pmx 200 1 gm In Dextrose/Water 1 100ml.bag @ 100 mls/hr IVPB Q1H [facility] Rx#: [id number] ceFAZolin 2 gm In Sodium 50 50 Chloride 0.9% 50 ml @ 100 mls/hr IVPB Q8HR [facility] Rx# :[id number] propofoL 1,000 mg In 70.393 Empty Bag 1 bag @ Titrate IV .Q0M [facility] Rx#: [id number] Oral 150 150 Output: Chest Tube Drainage 760 540 60 Chest Tube Left Pleural/ 760 540 60 Mediastinal Urine 435 650 120 Estimated Blood Loss 400 Other: Voiding Method Indwelling Catheter Indwelling Catheter ABP, PAP, CO, CI - Last Documented Arterial Blood Pressure 108/72 Pulmonary Artery Pressure 28/12 Cardiac Output 8.1 Cardiac Index 4.5 - Constitutional General appearance: Present: cooperative, no acute distress - Respiratory Details: Lungs sounds diminished bilaterally. Respirations even, nonlabored. Currently on 5 L nasal cannula with oxygen saturation in the mid 90s. Only able to achieve 500-750 mL on her incentive spirometry. Weak cough. Mediastinal/left pleural chest tubes present and connected to continuous wall suction with no air leak present. Output 310 mL serosanguineous drainage overnight, 1300 mL since surgery. - Cardiovascular Details: S1, S2 present. Regular rate and rhythm, sinus rhythm on telemetry with rate in the 80s. Sternum stable. Palpable peripheral pulses bilaterally. Trace generalized edema present. No calf pain or tenderness noted. Heart hugger in place with patient attempting to demonstrate appropriate use. Antiembolism stockings, SCDs present. Right internal jugular Norris/Cordis, right radial arterial line present. Last CO/CI 8.1/4.5 with PA pressures 28/12 and CVP 4-6 on no inotropes or pressors. - Gastrointestinal Gastrointestinal Comment(s): Abdomen soft, nontender, nondistended. Hypoactive bowel sounds present 4 quadrants. Tolerating clear liquids. Negative flatus - Genitourinary Genitourinary Comment(s): Lynch present draining clear, yellow urine. Output 35-70 mL/h overnight. - Integumentary Integumentary Comment(s): Skin is warm and dry with evidence of good perfusion. Anterior chest incision well approximated and covered with dry intact dressing. Left lower extremity EVH site well approximated without redness or drainage - Neurologic Neurologic: Present: CNII-XII intact - Musculoskeletal Musculoskeletal: Present: gait normal, strength equal bilaterally - Psychiatric Psychiatric: Present: A&O x's 3, appropriate affect, intact judgment & insight - Allied health notes Allied health notes reviewed: nursing - Labs CBC & Chem 7: 04/21/20 04:00 04/21/20 04:00 Labs: Abnormal Lab Results - Last 24 Hours (Table) 04/19/20 04/20/20 04/20/20 Range/Units 06:15 08:23 09:38 RBC (3.80-5.40) m/uL Hgb (11.4-16.0) gm/dL Hct (34.0-46.0) % RDW (11.5-15.5) % Plt Count (150-450) k/uL Lymphocytes # (1.0-4.8) k/uL INR (<1.2) ABG pH (7.35-7.45) ABG pO2 331 H 207 H (83-108) mmHg ABG O2 Saturation 100.0 H 99.6 H (94-97) % ABG Hematocrit 30 L 28 L (34.0-46.0) % ABG Glucose 148 H 143 H (75-99) mg/dL Hemoglobin 9.7 L 9.1 L (11.4-16.0) gm/dL Sodium (137-145) mmol/L Chloride (98-107) mmol/L Carbon Dioxide (22-30) mmol/L BUN (7-17) mg/dL Glucose (74-99) mg/dL POC Glucose (mg/dL) (75-99) mg/dL Calcium (8.4-10.2) mg/dL Magnesium (1.6-2.3) mg/dL Alkaline Phosphatase (38-126) U/L Total Protein (6.3-8.2) g/dL Albumin (3.5-5.0) g/dL Arterial Blood Glucose 148 H 143 H (75-99) mg/dL Crossmatch See Detail 04/20/20 04/20/20 04/20/20 Range/Units 10:41 11:19 12:00 RBC 2.78 L (3.80-5.40) m/uL Hgb 7.7 L D (11.4-16.0) gm/dL Hct 23.0 L (34.0-46.0) % RDW 19.6 H (11.5-15.5) % Plt Count 117 L (150-450) k/uL Lymphocytes # (1.0-4.8) k/uL INR (<1.2) ABG pH (7.35-7.45) ABG pO2 216 H 128 H (83-108) mmHg ABG O2 Saturation 100.0 H 99.1 H (94-97) % ABG Hematocrit 24 L 24 L (34.0-46.0) % ABG Glucose 131 H 122 H (75-99) mg/dL Hemoglobin 7.8 L 7.8 L (11.4-16.0) gm/dL Sodium (137-145) mmol/L Chloride (98-107) mmol/L Carbon Dioxide (22-30) mmol/L BUN (7-17) mg/dL Glucose (74-99) mg/dL POC Glucose (mg/dL) (75-99) mg/dL Calcium (8.4-10.2) mg/dL Magnesium (1.6-2.3) mg/dL Alkaline Phosphatase (38-126) U/L Total Protein (6.3-8.2) g/dL Albumin (3.5-5.0) g/dL Arterial Blood Glucose 131 H 122 H (75-99) mg/dL Crossmatch 04/20/20 04/20/20 04/20/20 Range/Units 12:00 12:00 12:14 RBC (3.80-5.40) m/uL Hgb (11.4-16.0) gm/dL Hct (34.0-46.0) % RDW (11.5-15.5) % Plt Count (150-450) k/uL Lymphocytes # (1.0-4.8) k/uL INR 1.2 H (<1.2) ABG pH (7.35-7.45) ABG pO2 (83-108) mmHg ABG O2 Saturation (94-97) % ABG Hematocrit (34.0-46.0) % ABG Glucose (75-99) mg/dL Hemoglobin (11.4-16.0) gm/dL Sodium (137-145) mmol/L Chloride 113 H (98-107) mmol/L Carbon Dioxide 21 L (22-30) mmol/L BUN 18 H (7-17) mg/dL Glucose 111 H (74-99) mg/dL POC Glucose (mg/dL) 120 H (75-99) mg/dL Calcium 7.8 L (8.4-10.2) mg/dL Magnesium 1.5 L (1.6-2.3) mg/dL Alkaline Phosphatase 35 L (38-126) U/L Total Protein 5.5 L (6.3-8.2) g/dL Albumin (3.5-5.0) g/dL Arterial Blood Glucose (75-99) mg/dL Crossmatch 04/20/20 04/20/20 04/20/20 Range/Units 12:17 13:02 14:04 RBC (3.80-5.40) m/uL Hgb (11.4-16.0) gm/dL Hct (34.0-46.0) % RDW (11.5-15.5) % Plt Count (150-450) k/uL Lymphocytes # (1.0-4.8) k/uL INR (<1.2) ABG pH 7.33 L (7.35-7.45) ABG pO2 260 H (83-108) mmHg ABG O2 Saturation 100.0 H (94-97) % ABG Hematocrit (34.0-46.0) % ABG Glucose (75-99) mg/dL Hemoglobin (11.4-16.0) gm/dL Sodium (137-145) mmol/L Chloride (98-107) mmol/L Carbon Dioxide (22-30) mmol/L BUN (7-17) mg/dL Glucose (74-99) mg/dL POC Glucose (mg/dL) 120 H 142 H (75-99) mg/dL Calcium (8.4-10.2) mg/dL Magnesium (1.6-2.3) mg/dL Alkaline Phosphatase (38-126) U/L Total Protein (6.3-8.2) g/dL Albumin (3.5-5.0) g/dL Arterial Blood Glucose (75-99) mg/dL Crossmatch 04/20/20 04/20/20 04/20/20 Range/Units 15:14 16:13 17:09 RBC (3.80-5.40) m/uL Hgb (11.4-16.0) gm/dL Hct (34.0-46.0) % RDW (11.5-15.5) % Plt Count (150-450) k/uL Lymphocytes # (1.0-4.8) k/uL INR (<1.2) ABG pH (7.35-7.45) ABG pO2 (83-108) mmHg ABG O2 Saturation (94-97) % ABG Hematocrit (34.0-46.0) % ABG Glucose (75-99) mg/dL Hemoglobin (11.4-16.0) gm/dL Sodium (137-145) mmol/L Chloride (98-107) mmol/L Carbon Dioxide (22-30) mmol/L BUN (7-17) mg/dL Glucose (74-99) mg/dL POC Glucose (mg/dL) 178 H 171 H 183 H (75-99) mg/dL Calcium (8.4-10.2) mg/dL Magnesium (1.6-2.3) mg/dL Alkaline Phosphatase (38-126) U/L Total Protein (6.3-8.2) g/dL Albumin (3.5-5.0) g/dL Arterial Blood Glucose (75-99) mg/dL Crossmatch 04/20/20 04/20/20 04/20/20 Range/Units 17:32 18:03 18:59 RBC 2.95 L (3.80-5.40) m/uL Hgb 8.4 L (11.4-16.0) gm/dL Hct 24.6 L (34.0-46.0) % RDW 19.3 H (11.5-15.5) % Plt Count 144 L (150-450) k/uL Lymphocytes # 0.6 L (1.0-4.8) k/uL INR (<1.2) ABG pH (7.35-7.45) ABG pO2 (83-108) mmHg ABG O2 Saturation (94-97) % ABG Hematocrit (34.0-46.0) % ABG Glucose (75-99) mg/dL Hemoglobin (11.4-16.0) gm/dL Sodium (137-145) mmol/L Chloride (98-107) mmol/L Carbon Dioxide (22-30) mmol/L BUN (7-17) mg/dL Glucose (74-99) mg/dL POC Glucose (mg/dL) 189 H 184 H (75-99) mg/dL Calcium (8.4-10.2) mg/dL Magnesium (1.6-2.3) mg/dL Alkaline Phosphatase (38-126) U/L Total Protein (6.3-8.2) g/dL Albumin (3.5-5.0) g/dL Arterial Blood Glucose (75-99) mg/dL Crossmatch 04/20/20 04/20/20 04/20/20 Range/Units 20:06 21:05 21:58 RBC (3.80-5.40) m/uL Hgb (11.4-16.0) gm/dL Hct (34.0-46.0) % RDW (11.5-15.5) % Plt Count (150-450) k/uL Lymphocytes # (1.0-4.8) k/uL INR (<1.2) ABG pH (7.35-7.45) ABG pO2 (83-108) mmHg ABG O2 Saturation (94-97) % ABG Hematocrit (34.0-46.0) % ABG Glucose (75-99) mg/dL Hemoglobin (11.4-16.0) gm/dL Sodium (137-145) mmol/L Chloride (98-107) mmol/L Carbon Dioxide (22-30) mmol/L BUN (7-17) mg/dL Glucose (74-99) mg/dL POC Glucose (mg/dL) 153 H 137 H 125 H (75-99) mg/dL Calcium (8.4-10.2) mg/dL Magnesium (1.6-2.3) mg/dL Alkaline Phosphatase (38-126) U/L Total Protein (6.3-8.2) g/dL Albumin (3.5-5.0) g/dL Arterial Blood Glucose (75-99) mg/dL Crossmatch 04/20/20 04/21/20 04/21/20 Range/Units 22:55 00:57 01:53 RBC (3.80-5.40) m/uL Hgb (11.4-16.0) gm/dL Hct (34.0-46.0) % RDW (11.5-15.5) % Plt Count (150-450) k/uL Lymphocytes # (1.0-4.8) k/uL INR (<1.2) ABG pH (7.35-7.45) ABG pO2 (83-108) mmHg ABG O2 Saturation (94-97) % ABG Hematocrit (34.0-46.0) % ABG Glucose (75-99) mg/dL Hemoglobin (11.4-16.0) gm/dL Sodium (137-145) mmol/L Chloride (98-107) mmol/L Carbon Dioxide (22-30) mmol/L BUN (7-17) mg/dL Glucose (74-99) mg/dL POC Glucose (mg/dL) 124 H 116 H 172 H (75-99) mg/dL Calcium (8.4-10.2) mg/dL Magnesium (1.6-2.3) mg/dL Alkaline Phosphatase (38-126) U/L Total Protein (6.3-8.2) g/dL Albumin (3.5-5.0) g/dL Arterial Blood Glucose (75-99) mg/dL Crossmatch 04/21/20 04/21/20 04/21/20 Range/Units 02:57 04:00 04:00 RBC 2.87 L (3.80-5.40) m/uL Hgb 8.6 L (11.4-16.0) gm/dL Hct 24.1 L (34.0-46.0) % RDW 19.4 H (11.5-15.5) % Plt Count (150-450) k/uL Lymphocytes # 0.8 L (1.0-4.8) k/uL INR (<1.2) ABG pH (7.35-7.45) ABG pO2 (83-108) mmHg ABG O2 Saturation (94-97) % ABG Hematocrit (34.0-46.0) % ABG Glucose (75-99) mg/dL Hemoglobin (11.4-16.0) gm/dL Sodium 136 L (137-145) mmol/L Chloride 109 H (98-107) mmol/L Carbon Dioxide 21 L (22-30) mmol/L BUN 18 H (7-17) mg/dL Glucose 138 H (74-99) mg/dL POC Glucose (mg/dL) 183 H (75-99) mg/dL Calcium 8.1 L (8.4-10.2) mg/dL Magnesium (1.6-2.3) mg/dL Alkaline Phosphatase 35 L (38-126) U/L Total Protein 5.4 L (6.3-8.2) g/dL Albumin 3.3 L (3.5-5.0) g/dL Arterial Blood Glucose (75-99) mg/dL Crossmatch 04/21/20 04/21/20 04/21/20 Range/Units 04:14 04:47 05:07 RBC (3.80-5.40) m/uL Hgb (11.4-16.0) gm/dL Hct (34.0-46.0) % RDW (11.5-15.5) % Plt Count (150-450) k/uL Lymphocytes # (1.0-4.8) k/uL INR (<1.2) ABG pH (7.35-7.45) ABG pO2 (83-108) mmHg ABG O2 Saturation (94-97) % ABG Hematocrit (34.0-46.0) % ABG Glucose (75-99) mg/dL Hemoglobin (11.4-16.0) gm/dL Sodium (137-145) mmol/L Chloride (98-107) mmol/L Carbon Dioxide (22-30) mmol/L BUN (7-17) mg/dL Glucose (74-99) mg/dL POC Glucose (mg/dL) 149 H 129 H 123 H (75-99) mg/dL Calcium (8.4-10.2) mg/dL Magnesium (1.6-2.3) mg/dL Alkaline Phosphatase (38-126) U/L Total Protein (6.3-8.2) g/dL Albumin (3.5-5.0) g/dL Arterial Blood Glucose (75-99) mg/dL Crossmatch 04/21/20 04/21/20 04/21/20 Range/Units 05:57 06:47 08:30 RBC (3.80-5.40) m/uL Hgb (11.4-16.0) gm/dL Hct (34.0-46.0) % RDW (11.5-15.5) % Plt Count (150-450) k/uL Lymphocytes # (1.0-4.8) k/uL INR (<1.2) ABG pH (7.35-7.45) ABG pO2 (83-108) mmHg ABG O2 Saturation (94-97) % ABG Hematocrit (34.0-46.0) % ABG Glucose (75-99) mg/dL Hemoglobin (11.4-16.0) gm/dL Sodium (137-145) mmol/L Chloride (98-107) mmol/L Carbon Dioxide (22-30) mmol/L BUN (7-17) mg/dL Glucose (74-99) mg/dL POC Glucose (mg/dL) 117 H 137 H 230 H (75-99) mg/dL Calcium (8.4-10.2) mg/dL Magnesium (1.6-2.3) mg/dL Alkaline Phosphatase (38-126) U/L Total Protein (6.3-8.2) g/dL Albumin (3.5-5.0) g/dL Arterial Blood Glucose (75-99) mg/dL Crossmatch - Imaging and Cardiology Chest x-ray: report reviewed, image reviewed Assessment and Plan Assessment: 1. Symptomatic coronary artery disease with left main disease, unstable angina, status post three-vessel off-pump CABG 2. History of coronary artery disease with stent placement to the LAD in 2010 3. Hypertension 4. Hyperlipidemia 5. Insulin-dependent diabetes mellitus with hemoglobin A1c 6.2% 6. Left internal carotid artery stenosis 50-79% 7. Stage III chronic kidney disease 8. Chronic anemia 9. Previous tobacco dependence with preoperative FEV1 87% of predicted 10. 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 Degenerative joint disease 12. History of benign brain tumor 20 years ago 13. Family history of coronary artery disease with son passing away at age 59 from myocardial infarction 14. Postoperative acute blood loss anemia, expected given patient's preoperative chronic anemia Plan: 1. Continue aspirins, statin, Plavix, beta hilary therapy. Will increase beta hilary therapy as tolerated. Discontinue IV nitro. Wean Cleviprex as tolerated 2. Wean O2 as tolerated. Encourage incentive spirometry 10 times every hour while awake. Bronchodilators per pulmonology 3. Increase activity, ambulate as tolerated. PT/OT/cardiac rehab consulted 4. Will monitor daily labs and x-rays. Electrolyte replacement per protocol. No transfusion today 5. GI/DVT prophylaxis 6. Insulin management per primary care service 7. Pain control with current medication regimen. Toradol added 8. Discontinue Norris. Connect Cordis to continuous CVP monitoring 9. Keep chest tubes for another 24 hours 10. Keep Lynch catheter for another 24 hours for strict accurate intake and output. Daily weights 11. More recommendations to follow as patient progresses Time with Patient: Greater than 30
[2020-04-21 09:59] LABS: Glucose,Whole Blood 192 mg/dL (75-99)
--- NOTE | 2020-04-21 10:06 | P.PN ---
Subjective Progress Note Date: 04/21/20 Principal diagnosis: Symptomatic coronary artery disease 79-year-old female patient with coronary artery disease and prior stenting of the LAD as well as no disease involving the RCA was experiencing shortness of breath and exertional angina. For that, the patient was given a cardiac catheterization today and the patient was found to have distal left main eccentric plaque appearing to be in the range of 50% and there was critical disease involving the mid LAD. The RCA having an intermediate lesion 60% range. The circumflex was nondominant and was within normal limits. The patient is currently hospitalized and the patient is being considered for coronary artery bypass surgery. The patient is currently hemodynamically stable. The patient has no specific complaints. The patient is known to have hypertension and hyperlipidemia and diabetes mellitus. The LDL cholesterol is at 68. No previous history of CVA. No focal neurological deficits. 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 The patient is seen today 04/20/2020 in the immediate postoperative setting. She was just transferred into the intensive care unit following an off-pump CABG 3 with a WEBER to the LAD, saphenous vein graft to the second obtuse marginal and a saphenous vein graft to the diagonal branch. She is currently intubated on mechanical ventilator. Settings SIMV of 12, tidal 5 and 400, FiO2 of 100% pressure support of 5, PEEP of 5. Arterial blood gases revealed a pO2 of 260, pCO2 42, pH 7.33. Chest x-ray reveals small effusions with left basilar op acity, likely postoperative atelectasis. Additional scattered strandy areas of atelectasis. Mediastinal drain and left chest tubes in place. Endotracheal and nasogastric tubes are present. Rate IJ [place]-Jessica catheter present. She's currently sedated on propofol at 30 mcg/kg/m. She is receiving nitroglycerin at 5 mcg/m. Lactated Ringer's at 50 MLS per hour. She is currently in normal sinus rhythm. Cardiac output 5.0, cardiac index 2.8. PA pressure 40/22. White count 4.2. Hemoglobin 7.7. Platelet count 117. INR 1.2. Sodium 141. Potassium 3.9. Bicarb 21. Creatinine 0.71. Glucose 120. Magnesium 1.5. She will be initiated on bronchodilators. Heparin for DVT prophylaxis. The patient is seen today 04/21/2020 in follow-up in the intensive care unit. Postoperative day #1. She is currently awake and alert in no acute distress. Sitting up in a chair at the bedside. She was successfully extubated possibly 5 hours after surgery. She is maintaining good O2 saturation in the 90s on 5 L/m per nasal cannula. She has lactated Ringer's running at 30 MLS per hour. Cleviprex at 2 mg per hour. Insulin drip at 4.5 units per hour. Chest x-ray reveals left-sided chest tube in place with the new 6 mm left apical pneumothorax. Trace effusions. I basilar atelectasis. She is pulling approximately 1000 ML's on her incentive spirometer. White count 6.2. Hemoglobin 8.6. Platelets 167. Sodium 136. Potassium 4.0. Bicarb 21. Creatinine 0.84. She is on heparin for DVT prophylaxis. SCDs in place. Heart hugger in place. Objective - Vital Signs Vital signs: Vital Signs Temp 99.0 F 04/21/20 08:00 Pulse 71 04/21/20 09:00 Resp 17 04/21/20 09:00 BP 124/58 04/21/20 09:00 Pulse Ox 95 04/21/20 09:00 Intake & Output 04/20/20 04/21/20 04/21/20 18:59 06:59 18:59 Intake Total 3093.352 9279.110 265.151 Output Total 1595 1190 240 Balance -469.990 -0.890 25.151 Weight 76.9 kg Intake: IV 272 196.5 17.5 0.9 CO/CI 150 160 0.9 Flush 66 9 15 Nitro 27.5 2.5 Intake, IV Titration 853.010 842.610 97.651 Amount ACETAMINOPHEN IV (For NPO 100 100 ) 1,000 mg In Empty Bag 1 bag @ 400 mls/hr IVPB Q6H [facility] Rx#:[id number] Clevidipine Butyrate 25 20.733 32.867 mg In Empty Bag 1 bag @ 1 MG/HR 2 mls/hr IV .Q24H [facility] Rx#:[id number] Insulin Regular 100 unit 11.884 59.743 7.651 In Sodium Chloride 0.9% 100 ml @ Per Protocol IV .Q0M [facility] Rx#:[id number] Lactated Ringers 1,000 ml 400 600 90 @ 20 mls/hr IV .Q24H [facility] Rx#:[id number] Magnesium Sulfate-D5w Pmx 200 1 gm In Dextrose/Water 1 100ml.bag @ 100 mls/hr IVPB Q1H [facility] Rx#: [id number] ceFAZolin 2 gm In Sodium 50 50 Chloride 0.9% 50 ml @ 100 mls/hr IVPB Q8HR [facility] Rx# :[id number] propofoL 1,000 mg In 70.393 Empty Bag 1 bag @ Titrate IV .Q0M [facility] Rx#: [id number] Oral 150 150 Output: Chest Tube Drainage 760 540 80 Chest Tube Left Pleural/ 760 540 80 Mediastinal Urine 435 650 160 Estimated Blood Loss 400 Other: Voiding Method Indwelling Catheter Indwelling Catheter Indwelling Catheter ABP, PAP, CO, CI - Last Documented Arterial Blood Pressure 113/69 Pulmonary Artery Pressure 28/12 Cardiac Output 8.1 Cardiac Index 4.5 - Exam GENERAL EXAM: Awake, alert very pleasant 79-year-old female patient, on 5 L nasal cannula, appears comfortable in no apparent distress. HEAD: Normocephalic. EYES: Normal reaction of pupils, equal size. NOSE: Clear with pink turbinates. THROAT: No erythema or exudates. NECK: No masses, no JVD. Right [place]-Jessica catheter in place. CHEST: Sternal dressing dry and intact. Heart Hugger in place. Left sided chest tube in place. LUNGS: Equal air entry with faint crackles in the posterior bases. CVS: S1 and S2 normal with no audible murmur, regular rhythm. ABDOMEN: No hepatosplenomegaly, normal bowel sounds, no guarding or rigidity. SPINE: No scoliosis or deformity SKIN: No rashes CENTRAL NERVOUS SYSTEM: Alert and oriented 3. No focal deficits, tone is normal in all 4 extremities. EXTREMITIES: There is trace peripheral edema. No clubbing, no cyanosis. Peripheral pulses are intact. SCDs in place. - Labs CBC & Chem 7: 04/21/20 04:00 04/21/20 04:00 Labs: Abnormal Lab Results - Last 24 Hours (Table) 04/19/20 04/20/20 04/20/20 Range/Units 06:15 08:23 09:38 RBC (3.80-5.40) m/uL Hgb (11.4-16.0) gm/dL Hct (34.0-46.0) % RDW (11.5-15.5) % Plt Count (150-450) k/uL Lymphocytes # (1.0-4.8) k/uL INR (<1.2) ABG pH (7.35-7.45) ABG pO2 331 H 207 H (83-108) mmHg ABG O2 Saturation 100.0 H 99.6 H (94-97) % ABG Hematocrit 30 L 28 L (34.0-46.0) % ABG Glucose 148 H 143 H (75-99) mg/dL Hemoglobin 9.7 L 9.1 L (11.4-16.0) gm/dL Sodium (137-145) mmol/L Chloride (98-107) mmol/L Carbon Dioxide (22-30) mmol/L BUN (7-17) mg/dL Glucose (74-99) mg/dL POC Glucose (mg/dL) (75-99) mg/dL Calcium (8.4-10.2) mg/dL Magnesium (1.6-2.3) mg/dL Alkaline Phosphatase (38-126) U/L Total Protein (6.3-8.2) g/dL Albumin (3.5-5.0) g/dL Arterial Blood Glucose 148 H 143 H (75-99) mg/dL Crossmatch See Detail 04/20/20 04/20/20 04/20/20 Range/Units 10:41 11:19 12:00 RBC 2.78 L (3.80-5.40) m/uL Hgb 7.7 L D (11.4-16.0) gm/dL Hct 23.0 L (34.0-46.0) % RDW 19.6 H (11.5-15.5) % Plt Count 117 L (150-450) k/uL Lymphocytes # (1.0-4.8) k/uL INR (<1.2) ABG pH (7.35-7.45) ABG pO2 216 H 128 H (83-108) mmHg ABG O2 Saturation 100.0 H 99.1 H (94-97) % ABG Hematocrit 24 L 24 L (34.0-46.0) % ABG Glucose 131 H 122 H (75-99) mg/dL Hemoglobin 7.8 L 7.8 L (11.4-16.0) gm/dL Sodium (137-145) mmol/L Chloride (98-107) mmol/L Carbon Dioxide (22-30) mmol/L BUN (7-17) mg/dL Glucose (74-99) mg/dL POC Glucose (mg/dL) (75-99) mg/dL Calcium (8.4-10.2) mg/dL Magnesium (1.6-2.3) mg/dL Alkaline Phosphatase (38-126) U/L Total Protein (6.3-8.2) g/dL Albumin (3.5-5.0) g/dL Arterial Blood Glucose 131 H 122 H (75-99) mg/dL Crossmatch 04/20/20 04/20/20 04/20/20 Range/Units 12:00 12:00 12:14 RBC (3.80-5.40) m/uL Hgb (11.4-16.0) gm/dL Hct (34.0-46.0) % RDW (11.5-15.5) % Plt Count (150-450) k/uL Lymphocytes # (1.0-4.8) k/uL INR 1.2 H (<1.2) ABG pH (7.35-7.45) ABG pO2 (83-108) mmHg ABG O2 Saturation (94-97) % ABG Hematocrit (34.0-46.0) % ABG Glucose (75-99) mg/dL Hemoglobin (11.4-16.0) gm/dL Sodium (137-145) mmol/L Chloride 113 H (98-107) mmol/L Carbon Dioxide 21 L (22-30) mmol/L BUN 18 H (7-17) mg/dL Glucose 111 H (74-99) mg/dL POC Glucose (mg/dL) 120 H (75-99) mg/dL Calcium 7.8 L (8.4-10.2) mg/dL Magnesium 1.5 L (1.6-2.3) mg/dL Alkaline Phosphatase 35 L (38-126) U/L Total Protein 5.5 L (6.3-8.2) g/dL Albumin (3.5-5.0) g/dL Arterial Blood Glucose (75-99) mg/dL Crossmatch 04/20/20 04/20/20 04/20/20 Range/Units 12:17 13:02 14:04 RBC (3.80-5.40) m/uL Hgb (11.4-16.0) gm/dL Hct (34.0-46.0) % RDW (11.5-15.5) % Plt Count (150-450) k/uL Lymphocytes # (1.0-4.8) k/uL INR (<1.2) ABG pH 7.33 L (7.35-7.45) ABG pO2 260 H (83-108) mmHg ABG O2 Saturation 100.0 H (94-97) % ABG Hematocrit (34.0-46.0) % ABG Glucose (75-99) mg/dL Hemoglobin (11.4-16.0) gm/dL Sodium (137-145) mmol/L Chloride (98-107) mmol/L Carbon Dioxide (22-30) mmol/L BUN (7-17) mg/dL Glucose (74-99) mg/dL POC Glucose (mg/dL) 120 H 142 H (75-99) mg/dL Calcium (8.4-10.2) mg/dL Magnesium (1.6-2.3) mg/dL Alkaline Phosphatase (38-126) U/L Total Protein (6.3-8.2) g/dL Albumin (3.5-5.0) g/dL Arterial Blood Glucose (75-99) mg/dL Crossmatch 04/20/20 04/20/20 04/20/20 Range/Units 15:14 16:13 17:09 RBC (3.80-5.40) m/uL Hgb (11.4-16.0) gm/dL Hct (34.0-46.0) % RDW (11.5-15.5) % Plt Count (150-450) k/uL Lymphocytes # (1.0-4.8) k/uL INR (<1.2) ABG pH (7.35-7.45) ABG pO2 (83-108) mmHg ABG O2 Saturation (94-97) % ABG Hematocrit (34.0-46.0) % ABG Glucose (75-99) mg/dL Hemoglobin (11.4-16.0) gm/dL Sodium (137-145) mmol/L Chloride (98-107) mmol/L Carbon Dioxide (22-30) mmol/L BUN (7-17) mg/dL Glucose (74-99) mg/dL POC Glucose (mg/dL) 178 H 171 H 183 H (75-99) mg/dL Calcium (8.4-10.2) mg/dL Magnesium (1.6-2.3) mg/dL Alkaline Phosphatase (38-126) U/L Total Protein (6.3-8.2) g/dL Albumin (3.5-5.0) g/dL Arterial Blood Glucose (75-99) mg/dL Crossmatch 04/20/20 04/20/20 04/20/20 Range/Units 17:32 18:03 18:59 RBC 2.95 L (3.80-5.40) m/uL Hgb 8.4 L (11.4-16.0) gm/dL Hct 24.6 L (34.0-46.0) % RDW 19.3 H (11.5-15.5) % Plt Count 144 L (150-450) k/uL Lymphocytes # 0.6 L (1.0-4.8) k/uL INR (<1.2) ABG pH (7.35-7.45) ABG pO2 (83-108) mmHg ABG O2 Saturation (94-97) % ABG Hematocrit (34.0-46.0) % ABG Glucose (75-99) mg/dL Hemoglobin (11.4-16.0) gm/dL Sodium (137-145) mmol/L Chloride (98-107) mmol/L Carbon Dioxide (22-30) mmol/L BUN (7-17) mg/dL Glucose (74-99) mg/dL POC Glucose (mg/dL) 189 H 184 H (75-99) mg/dL Calcium (8.4-10.2) mg/dL Magnesium (1.6-2.3) mg/dL Alkaline Phosphatase (38-126) U/L Total Protein (6.3-8.2) g/dL Albumin (3.5-5.0) g/dL Arterial Blood Glucose (75-99) mg/dL Crossmatch 04/20/20 04/20/20 04/20/20 Range/Units 20:06 21:05 21:58 RBC (3.80-5.40) m/uL Hgb (11.4-16.0) gm/dL Hct (34.0-46.0) % RDW (11.5-15.5) % Plt Count (150-450) k/uL Lymphocytes # (1.0-4.8) k/uL INR (<1.2) ABG pH (7.35-7.45) ABG pO2 (83-108) mmHg ABG O2 Saturation (94-97) % ABG Hematocrit (34.0-46.0) % ABG Glucose (75-99) mg/dL Hemoglobin (11.4-16.0) gm/dL Sodium (137-145) mmol/L Chloride (98-107) mmol/L Carbon Dioxide (22-30) mmol/L BUN (7-17) mg/dL Glucose (74-99) mg/dL POC Glucose (mg/dL) 153 H 137 H 125 H (75-99) mg/dL Calcium (8.4-10.2) mg/dL Magnesium (1.6-2.3) mg/dL Alkaline Phosphatase (38-126) U/L Total Protein (6.3-8.2) g/dL Albumin (3.5-5.0) g/dL Arterial Blood Glucose (75-99) mg/dL Crossmatch 04/20/20 04/21/20 04/21/20 Range/Units 22:55 00:57 01:53 RBC (3.80-5.40) m/uL Hgb (11.4-16.0) gm/dL Hct (34.0-46.0) % RDW (11.5-15.5) % Plt Count (150-450) k/uL Lymphocytes # (1.0-4.8) k/uL INR (<1.2) ABG pH (7.35-7.45) ABG pO2 (83-108) mmHg ABG O2 Saturation (94-97) % ABG Hematocrit (34.0-46.0) % ABG Glucose (75-99) mg/dL Hemoglobin (11.4-16.0) gm/dL Sodium (137-145) mmol/L Chloride (98-107) mmol/L Carbon Dioxide (22-30) mmol/L BUN (7-17) mg/dL Glucose (74-99) mg/dL POC Glucose (mg/dL) 124 H 116 H 172 H (75-99) mg/dL Calcium (8.4-10.2) mg/dL Magnesium (1.6-2.3) mg/dL Alkaline Phosphatase (38-126) U/L Total Protein (6.3-8.2) g/dL Albumin (3.5-5.0) g/dL Arterial Blood Glucose (75-99) mg/dL Crossmatch 04/21/20 04/21/20 04/21/20 Range/Units 02:57 04:00 04:00 RBC 2.87 L (3.80-5.40) m/uL Hgb 8.6 L (11.4-16.0) gm/dL Hct 24.1 L (34.0-46.0) % RDW 19.4 H (11.5-15.5) % Plt Count (150-450) k/uL Lymphocytes # 0.8 L (1.0-4.8) k/uL INR (<1.2) ABG pH (7.35-7.45) ABG pO2 (83-108) mmHg ABG O2 Saturation (94-97) % ABG Hematocrit (34.0-46.0) % ABG Glucose (75-99) mg/dL Hemoglobin (11.4-16.0) gm/dL Sodium 136 L (137-145) mmol/L Chloride 109 H (98-107) mmol/L Carbon Dioxide 21 L (22-30) mmol/L BUN 18 H (7-17) mg/dL Glucose 138 H (74-99) mg/dL POC Glucose (mg/dL) 183 H (75-99) mg/dL Calcium 8.1 L (8.4-10.2) mg/dL Magnesium (1.6-2.3) mg/dL Alkaline Phosphatase 35 L (38-126) U/L Total Protein 5.4 L (6.3-8.2) g/dL Albumin 3.3 L (3.5-5.0) g/dL Arterial Blood Glucose (75-99) mg/dL Crossmatch 04/21/20 04/21/20 04/21/20 Range/Units 04:14 04:47 05:07 RBC (3.80-5.40) m/uL Hgb (11.4-16.0) gm/dL Hct (34.0-46.0) % RDW (11.5-15.5) % Plt Count (150-450) k/uL Lymphocytes # (1.0-4.8) k/uL INR (<1.2) ABG pH (7.35-7.45) ABG pO2 (83-108) mmHg ABG O2 Saturation (94-97) % ABG Hematocrit (34.0-46.0) % ABG Glucose (75-99) mg/dL Hemoglobin (11.4-16.0) gm/dL Sodium (137-145) mmol/L Chloride (98-107) mmol/L Carbon Dioxide (22-30) mmol/L BUN (7-17) mg/dL Glucose (74-99) mg/dL POC Glucose (mg/dL) 149 H 129 H 123 H (75-99) mg/dL Calcium (8.4-10.2) mg/dL Magnesium (1.6-2.3) mg/dL Alkaline Phosphatase (38-126) U/L Total Protein (6.3-8.2) g/dL Albumin (3.5-5.0) g/dL Arterial Blood Glucose (75-99) mg/dL Crossmatch 04/21/20 04/21/20 04/21/20 Range/Units 05:57 06:47 08:30 RBC (3.80-5.40) m/uL Hgb (11.4-16.0) gm/dL Hct (34.0-46.0) % RDW (11.5-15.5) % Plt Count (150-450) k/uL Lymphocytes # (1.0-4.8) k/uL INR (<1.2) ABG pH (7.35-7.45) ABG pO2 (83-108) mmHg ABG O2 Saturation (94-97) % ABG Hematocrit (34.0-46.0) % ABG Glucose (75-99) mg/dL Hemoglobin (11.4-16.0) gm/dL Sodium (137-145) mmol/L Chloride (98-107) mmol/L Carbon Dioxide (22-30) mmol/L BUN (7-17) mg/dL Glucose (74-99) mg/dL POC Glucose (mg/dL) 117 H 137 H 230 H (75-99) mg/dL Calcium (8.4-10.2) mg/dL Magnesium (1.6-2.3) mg/dL Alkaline Phosphatase (38-126) U/L Total Protein (6.3-8.2) g/dL Albumin (3.5-5.0) g/dL Arterial Blood Glucose (75-99) mg/dL Crossmatch Assessment and Plan Assessment: 1 Symptomatically coronary artery disease with involvement of the distal left main in the range of 50% with an eccentric plaque in addition to critical disease involving the mid LAD. Status post off-pump coronary artery bypass grafting utilizing a WEBER to LAD, saphenous vein graft to the obtuse marginal and diagonal branch. Postoperative day #1. 2 Exertional dyspnea and angina secondary to above, currently intubated on the mechanical ventilator as an expected outcome of surgery 3 Diabetes mellitus 4 Hypertension 5 Hyperlipidemia Plan: The patient was seen and evaluated by Dr. Cary Chest x-ray and labs reviewed Titrate down the FiO2 as tolerated Continue bronchodilators Encouraged regarding the increased use the incentive spirometer and cough and deep breathing exercises We will continue to follow and make further recommendations based on her clinical status I, the cosigning physician, performed a history & physical examination of the patient. Lungs sounds with faint crackles in the posterior bases. Maintaining good O2 saturations in the 90s on 5 L/m per nasal cannula. I discussed the assessment and plan of care with my nurse practitioner, Brit Dumont. I attest to the above note as dictated by her.
--- NOTE | 2020-04-21 10:20 | P.ARTDOP ---
Arterial Doppler LOWER EXTREMITY ARTERIAL DOPPLER: DATE OF SERVICE: 04/18/2020 Reason for study: Preop CABG. Doppler waveforms: Multiphasic bilaterally throughout with excellent digital waveforms. Pulse volume recording: []. Pressure gradients: None. Ankle-brachial indices: Greater than 1 bilaterally. Toe brachial indices: 0.72 on the right, 0.72 on the left Impression: Normal study.
--- NOTE | 2020-04-21 10:22 | P.VSCSTY ---
Greater Saphenous Vein Mapping This is bilateral lower extremity greater saphenous vein mapping. Date of service: 04/18/2020 Vein quality and ultrasound appearance: There is dilatation and intimal thickening just above the knee on the right. Otherwise we see no endoluminal thrombus or wall changes.. Vein size groin right : 5.4 x 4.7 groin left: 5.8 x 5.0 High thigh right: 3.4 x 2.7 high thigh left: 3.7 x 3.7 Mid thigh right: 4.0 x 3.4 mid thigh left: 3.7 x 3.0 Above-knee right: 9.6 x 7.5 with wall changes above-knee left: 3.4 x 2.8 Below knee right: 6.2 x 4.7 below-knee left: 5.3 x 2.8 Mid calf right: 3.8 x 2.6 mid calf left: 3.1 x 2.5 Ankle right: 2.8 x 2.0 ankle left: 2.9 x 2.0 Impression: [].
[2020-04-21 11:05] LABS: Glucose,Whole Blood 184 mg/dL (75-99)
[2020-04-21 12:24] LABS: Glucose,Whole Blood 184 mg/dL (75-99)
[2020-04-21 13:10] LABS: Glucose,Whole Blood 175 mg/dL (75-99)
[2020-04-21 14:35] LABS: Glucose,Whole Blood 172 mg/dL (75-99)
[2020-04-21 15:25] LABS: Glucose,Whole Blood 162 mg/dL (75-99)
--- NOTE | 2020-04-21 15:34 | CONS ---
CONSULTATION REASON FOR CONSULT: CKD. HISTORY OF PRESENT ILLNESS: Patient is an 79-year-old female with a history of chronic kidney disease, NKF stage III, with baseline creatinine around 1 mg/dL secondary to nephrosclerosis. The patient was admitted to the hospital for coronary artery bypass surgery. She was initially admitted on 04/19/2020. Patient had a cardiac catheterization on 04/18/2020 which had shown severe disease and patient was scheduled for coronary artery bypass surgery, which was done on 04/20/[address] Alvarez. Patient had CABG x3. This morning patient is awake. She is extubated, sitting up on a bedside chair. She has had good urine output. Her serum creatinine is actually 0.84 mg/dL today. PAST MEDICAL HISTORY: Hypertension, CKD, hyperlipidemia, coronary artery disease, type 2 diabetes, gastroesophageal reflux disease, osteoarthritis, history of squamous cell skin cancer, left leg, history of benign brain tumor, history of varicose veins, right leg. PAST SURGICAL HISTORY: Cholecystectomy, cardiac catheterization, coronary stent placement, removal of brain tumor 1998, skin cancer removal from left leg and tumor removed from left shoulder, non- malignant, according to patient. SOCIAL HISTORY: Patient is a former smoker. No history of drug abuse or alcohol abuse. MEDICATIONS: Medications prior to admission included aspirin, Drisdol, Lopressor, Lopid, metformin, Lipitor, isosorbide, Cozaar. ALLERGIES: ALLERGIES include TETANUS SHOT, which caused swelling. REVIEW OF SYSTEMS: Patient is voiding well. No nausea or vomiting. Respiratory status is stable. No active bleeding noted. PHYSICAL EXAMINATION: Patient is comfortable, awake and alert. Blood pressure was 136/69, heart rate 62 per minute. She is afebrile. EXAMINATION OF THE HEART: S1 and S2. EXAMINATION OF LUNGS: Decreased breath sounds at bases. ABDOMEN: Soft, non-tender. Examination of lower extremities shows no significant edema. Legs are wrapped. MARINE DRAFTER exam is grossly intact. LABS: Labs show sodium 136, potassium 4.0, chloride 109, BUN 18, serum creatinine 0.8, hemoglobin 8.6 g/dL. ASSESSMENT: 1. Chronic kidney disease, NKF stage III, with baseline creatinine around 1 mg/dL. Serum creatinine is currently lower secondary to hydration. Patient has good urine output. She is not on any nephrotoxic medications. I will continue to monitor for now. 2. Coronary artery disease, status post coronary artery bypass surgery, currently doing well. 3. Type 2 diabetes. 4. Hypertension, currently stable. PLAN: No changes from nephrology standpoint. Encourage increased oral intake. Monitor electrolytes. Repeat labs in a.m. MMODL / IJN: [id number] /
[2020-04-21 16:31] LABS: Glucose,Whole Blood 111 mg/dL (75-99)
[2020-04-21 17:18] LABS: Glucose,Whole Blood 123 mg/dL (75-99)
[2020-04-21 18:21] LABS: Glucose,Whole Blood 117 mg/dL (75-99)
[2020-04-21 19:10] LABS: Glucose,Whole Blood 129 mg/dL (75-99)
[2020-04-21] MEDS: SENNOSIDES-DOCUSATE SODIUM 1 EACH TAB PO SCH (21:16)
[2020-04-21 21:26] LABS: Glucose,Whole Blood 125 mg/dL (75-99)
[2020-04-22 00:05] LABS: Glucose,Whole Blood 73 mg/dL (75-99)
[2020-04-22 01:17] LABS: Glucose,Whole Blood 143 mg/dL (75-99)
[2020-04-22] MEDS: KETOROLAC 15 MG/ML 1 ML VIAL IVP SCH ×2 (01:45→05:48)
[2020-04-22 02:55] LABS: Glucose,Whole Blood 224 mg/dL (75-99)
[2020-04-22 04:09] LABS: Glucose,Whole Blood 212 mg/dL (75-99)
[2020-04-22 05:14] LABS: Glucose,Whole Blood 181 mg/dL (75-99)
[2020-04-22] MEDS: HEPARIN SODIUM,PORCINE 5,000 UNIT/ML 1 ML VIAL SQ SCH ×3 (05:47→20:48)
[2020-04-22] MEDS ORDERED: ACETAMINOPHEN TAB 325 MG TAB PO PRN (06:34)
[2020-04-22] MEDS: SENNOSIDES-DOCUSATE SODIUM 1 EACH TAB PO SCH (06:50)
--- NOTE | 2020-04-22 06:56 | XR ---
EXAMINATION TYPE: XR chest 1V portable DATE OF EXAM: 04/22/2020 CLINICAL HISTORY: Difficulty breathing progress study. Postoperative cardiac surgery. TECHNIQUE: Single AP portable upright view of the chest is obtained. COMPARISON: Chest x-ray from one day earlier FINDINGS: Interval removal of right internal jugular [place]-Jessica catheter. Cordis sheath remains in pl goyo. Overlying sternal wires and mediastinal clips redemonstrated. Mediastinal drainage catheter marixa g with left basilar chest tube redemonstrated. Stable tiny left apical pneumothorax.Stable patchy lef t basilar atelectasis and/or infiltrate. Worsening right basilar opacity. Cardiac silhouette size sta ble and mildly enlarged with atherosclerotic aorta. Osseous structures are intact. Overlying left-jose a ed subcutaneous emphysema redemonstrated. IMPRESSION: Persistent tiny left apical pneumothorax despite chest tube placement. Bibasilar atelecta sis and/or developing infiltrate redemonstrated, right basilar findings more prominent from one day tejas valenzuela.
[2020-04-22] MEDS ORDERED: SENNOSIDES-DOCUSATE SODIUM 1 EACH TAB PO PRN (07:21)
[2020-04-22] MEDS: IPRATROPIUM-ALBUTEROL 3 ML NEB INHALATION SCH ×4 (07:29→21:26)
[2020-04-22] MEDS: FERROUS SULFATE 325 MG TAB PO SCH ×2 (08:04→18:27)
[2020-04-22] MEDS: PANTOPRAZOLE 40 MG TABLET PO SCH (08:04)
[2020-04-22] MEDS: ASCORBIC ACID 500 MG TAB PO SCH ×2 (08:04→18:27)
[2020-04-22] MEDS: ASPIRIN 325 MG TAB PO SCH (08:05)
[2020-04-22] MEDS: CLOPIDOGREL 75 MG TAB PO SCH (08:05)
[2020-04-22] MEDS: METOPROLOL TARTRATE 12.5 MG TAB PO SCH ×2 (08:06→20:49)
[2020-04-22 08:12] LABS: Glucose,Whole Blood 175 mg/dL (75-99)
[2020-04-22] MEDS: INSULIN REGULAR 100 UNIT in SODIUM CHLORIDE 0.9% 100 ML IV SCH ×2 (08:14→11:31)
--- NOTE | 2020-04-22 08:57 | P.PN ---
Subjective Progress Note Date: 04/22/20 Principal diagnosis: Symptomatic coronary artery disease with left main disease, unstable angina. 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 POD #2 off-pump coronary artery bypass grafting 3 with the left internal mammary artery to left anterior descending artery, greater saphenous vein grafts to the second obtuse marginal and first diagonal branches, endovascular vein harvest of the left greater saphenous vein from below the knee to the groin level, and intraoperative transesophageal echocardiogram performed by anesthesia. Postoperative acute blood loss anemia, expected given patient's preoperative chronic anemia The patient is currently sitting up in a recliner in the intensive care unit in no acute distress. She does complain of post surgical chest discomfort which is controlled on current medication regimen. Denies shortness of breath. Actively using incentive spirometer and achieving 1000 mL, stronger cough. She remains in normal sinus rhythm and hemodynamically stable, off Cleviprex. Right internal jugular cordis, mediastinal and left pleural chest tubes remain. Patient did ambulate in the hallway yesterday without difficulty. No new acute issues. Objective - Vital Signs Vital signs: Vital Signs Temp 98.0 F 04/22/20 08:00 Pulse 85 04/22/20 08:00 Resp 22 04/22/20 08:00 BP 139/55 04/22/20 08:00 Pulse Ox 94 L 04/22/20 08:00 Intake & Output 04/21/20 04/22/20 04/22/20 18:59 06:59 18:59 Intake Total 907.852 389.958 77.443 Output Total 885 755 100 Balance 22.852 -365.042 -22.557 Weight 76.9 kg 80.6 kg Intake: IV 53.5 36 26 0.9 Flush 51 36 6 0.9NS 20 Nitro 2.5 Intake, IV Titration 354.352 103.958 51.443 Amount Clevidipine Butyrate 25 9.467 mg In Empty Bag 1 bag @ 1 MG/HR 2 mls/hr IV .Q24H [facility] Rx#:[id number] Insulin Regular 100 unit 74.885 63.958 51.443 In Sodium Chloride 0.9% 100 ml @ Per Protocol IV .Q0M [facility] Rx#:[id number] Lactated Ringers 1,000 ml 270 40 @ 20 mls/hr IV .Q24H [facility] Rx#:[id number] Oral 500 250 Output: Chest Tube Drainage 255 20 100 Chest Tube Left Pleural/ 255 20 100 Mediastinal Urine 630 735 Other: Voiding Method Indwelling Catheter Indwelling Catheter # Bowel Movements 1 ABP, PAP, CO, CI - Last Documented Arterial Blood Pressure 99/64 Pulmonary Artery Pressure 28/12 Cardiac Output 8.1 Cardiac Index 4.5 - Constitutional General appearance: Present: cooperative, no acute distress - Respiratory Details: Lungs sounds diminished bilaterally. Respirations even, nonlabored. Currently on room air with oxygen saturation in the mid 90s. Able to achieve 1000 mL on her incentive spirometry. Strong cough. Mediastinal/left pleural chest tubes present and connected to continuous wall suction with no air leak present. Output 100 mL serosanguineous drainage overnight, 250 mL in the last 24 hours - Cardiovascular Details: S1, S2 present. Regular rate and rhythm, sinus rhythm on telemetry with rate in the 70s. Sternum stable. Palpable peripheral pulses bilaterally. No edema present. No calf pain or tenderness noted. Heart hugger in place with patient demonstrating appropriate use. Antiembolism stockings, SCDs present. Right in ternal jugular Cordis present. - Gastrointestinal Gastrointestinal Comment(s): Abdomen soft, nontender, nondistended. Active bowel sounds present 4 quadran ts. Tolerating diet. Positive liquid stool 2 - Genitourinary Genitourinary Comment(s): Lynch catheter discontinued this morning, output overnight 50-75 mL/h, 1365 mL in the last 24 hours - Integumentary Integumentary Comment(s): Skin is warm and dry with evidence of good perfusion. Anterior chest incision well approximated and covered with dry intact dressing. Left lower extremity EVH site well approximated without redness or drainage - Neurologic Neurologic: Present: CNII-XII intact - Musculoskeletal Musculoskeletal: Present: gait normal, strength equal bilaterally - Psychiatric Psychiatric: Present: A&O x's 3, appropriate affect, intact judgment & insight - Allied health notes Allied health notes reviewed: nursing - Labs CBC & Chem 7: 04/21/20 04:00 04/21/20 04:00 Labs: Abnormal Lab Results - Last 24 Hours (Table) 04/21/20 04/21/20 04/21/20 Range/Units 09:57 11:04 12:22 POC Glucose (mg/dL) 192 H 184 H 184 H (75-99) mg/dL 04/21/20 04/21/20 04/21/20 Range/Units 13:07 14:33 15:23 POC Glucose (mg/dL) 175 H 172 H 162 H (75-99) mg/dL 04/21/20 04/21/20 04/21/20 Range/Units 16:29 17:17 18:19 POC Glucose (mg/dL) 111 H 123 H 117 H (75-99) mg/dL 04/21/20 04/21/20 04/21/20 Range/Units 19:08 21:24 23:52 POC Glucose (mg/dL) 129 H 125 H 73 L (75-99) mg/dL 04/22/20 04/22/20 04/22/20 Range/Units 01:14 02:53 04:08 POC Glucose (mg/dL) 143 H 224 H 212 H (75-99) mg/dL 04/22/20 04/22/20 Range/Units 05:12 08:11 POC Glucose (mg/dL) 181 H 175 H (75-99) mg/dL - Imaging and Cardiology Chest x-ray: report reviewed, image reviewed Assessment and Plan Assessment: 1. Symptomatic coronary artery disease with left main disease, unstable angina, status post three-vessel off-pump CABG 2. History of coronary artery disease with stent placement to the LAD in 2010 3. Hypertension 4. Hyperlipidemia 5. Insulin-dependent diabetes mellitus with hemoglobin A1c 6.2% 6. Left internal carotid artery stenosis 50-79% 7. Stage III chronic kidney disease 8. Chronic anemia 9. Previous tobacco dependence with preoperative FEV1 87% of predicted 10. 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 Degenerative joint disease 12. History of benign brain tumor 20 years ago 13. Family history of coronary artery disease with son passing away at age 59 from myocardial infarction 14. Postoperative acute blood loss anemia, expected given patient's preoperative chronic anemia Plan: 1. Continue aspirins, statin, Plavix, beta hilary therapy. Will increase beta hilary therapy as tolerated. Will add low-dose ARB 2. Encourage incentive spirometry 10 times every hour while awake. Bronchodilators per pulmonology 3. Increase activity, ambulate as tolerated. PT/OT/cardiac rehab consulted 4. Will monitor daily labs and x-rays. Electrolyte replacement per protocol. No transfusion today 5. GI/DVT prophylaxis 6. Insulin management per primary care service, would recommend transitioning to subcutaneous insulin and discontinuing IV insulin 7. Pain control with current medication regimen. Toradol added 8. Establish peripheral IV, discontinue Cordis 9. Will discontinue mediastinal and left pleural chest tubes 10. Discontinue Lynch catheter, May bladder scan and straight cathed for greater than 300 mL residual 11. Strict accurate intake and output. Daily weights 12. Will place transfer orders for 3 S. cardiac stepdown unit, may transfer when bed available 13. Discharge planning in progress. Anticipate discharge to home with home care in 48-72 hours 14. More recommendations to follow as patient progresses Time with Patient: Greater than 30
[2020-04-22 09:18] LABS: Glucose,Whole Blood 206 mg/dL (75-99)
[2020-04-22 09:33] LABS: Ionized Calcium 4.9 mg/dL (4.5-5.3)
[2020-04-22 09:40] LABS: Albumin 3.5 g/dL (3.5-5.0); Calcium 8.6 mg/dL (8.4-10.2); Potassium 4.3 mmol/L (3.5-5.1); Total Bilirubin 0.4 mg/dL (0.2-1.3); Total Protein 5.8 g/dL (6.3-8.2)
[2020-04-22 09:44] LABS: Anisocytosis Slight; Basophils % (A) 0 %; Eosinophils % (A) 0 %; HCT 25.1 % (34.0-46.0); HGB 7.9 gm/dL (11.4-16.0); Hypochromasia Slight; Lymphocytes # (A) 0.8 k/uL (1.0-4.8); Lymphocytes % (A) 10 %; MCH 26.5 pg (25.0-35.0); MCHC 31.4 g/dL (31.0-37.0); MCV 84.5 fL (80.0-100.0); Mean Platelet Volume 7.8; Monocytes # (A) 0.4 k/uL (0-1.0); Monocytes % (A) 4 %; Neutrophils # (A) 6.7 k/uL (1.3-7.7); Neutrophils % (A) 84 %; Platelet Count 180 k/uL (150-450); RBC 2.97 m/uL (3.80-5.40); RDW 19.8 % (11.5-15.5)
[2020-04-22 10:16] LABS: Glucose,Whole Blood 261 mg/dL (75-99)
[2020-04-22] MEDS: LACTATED RINGERS 1,000 ML IV SCH (10:21)
--- NOTE | 2020-04-22 10:43 | P.PN ---
Subjective Progress Note Date: 04/22/20 Principal diagnosis: Symptomatic coronary artery disease 79-year-old female patient with coronary artery disease and prior stenting of the LAD as well as no disease involving the RCA was experiencing shortness of breath and exertional angina. For that, the patient was given a cardiac catheterization today and the patient was found to have distal left main eccentric plaque appearing to be in the range of 50% and there was critical disease involving the mid LAD. The RCA having an intermediate lesion 60% range. The circumflex was nondominant and was within normal limits. The patient is currently hospitalized and the patient is being considered for coronary artery bypass surgery. The patient is currently hemodynamically stable. The patient has no specific complaints. The patient is known to have hypertension and hyperlipidemia and diabetes mellitus. The LDL cholesterol is at 68. No previous history of CVA. No focal neurological deficits. 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 The patient is seen today 04/20/2020 in the immediate postoperative setting. She was just transferred into the intensive care unit following an off-pump CABG 3 with a WEBER to the LAD, saphenous vein graft to the second obtuse marginal and a saphenous vein graft to the diagonal branch. She is currently intubated on mechanical ventilator. Settings SIMV of 12, tidal 5 and 400, FiO2 of 100% pressure support of 5, PEEP of 5. Arterial blood gases revealed a pO2 of 260, pCO2 42, pH 7.33. Chest x-ray reveals small effusions with left basilar op acity, likely postoperative atelectasis. Additional scattered strandy areas of atelectasis. Mediastinal drain and left chest tubes in place. Endotracheal and nasogastric tubes are present. Rate IJ Clayton-Jessica catheter present. She's currently sedated on propofol at 30 mcg/kg/m. She is receiving nitroglycerin at 5 mcg/m. Lactated Ringer's at 50 MLS per hour. She is currently in normal sinus rhythm. Cardiac output 5.0, cardiac index 2.8. PA pressure 40/22. White count 4.2. Hemoglobin 7.7. Platelet count 117. INR 1.2. Sodium 141. Potassium 3.9. Bicarb 21. Creatinine 0.71. Glucose 120. Magnesium 1.5. She will be initiated on bronchodilators. Heparin for DVT prophylaxis. The patient is seen today 04/21/2020 in follow-up in the intensive care unit. Postoperative day #1. She is currently awake and alert in no acute distress. Sitting up in a chair at the bedside. She was successfully extubated possibly 5 hours after surgery. She is maintaining good O2 saturation in the 90s on 5 L/m per nasal cannula. She has lactated Ringer's running at 30 MLS per hour. Cleviprex at 2 mg per hour. Insulin drip at 4.5 units per hour. Chest x-ray reveals left-sided chest tube in place with the new 6 mm left apical pneumothorax. Trace effusions. I basilar atelectasis. She is pulling approximately 1000 ML's on her incentive spirometer. White count 6.2. Hemoglobin 8.6. Platelets 167. Sodium 136. Potassium 4.0. Bicarb 21. Creatinine 0.84. She is on heparin for DVT prophylaxis. SCDs in place. Heart hugger in place. The patient is seen today 04/22/2020 in follow-up in the intensive care unit. Postoperative day #2. She is awake and alert in no acute distress. Sitting up in a chair at the bedside. Denies any worsening shortness of breath, cough or congestion. Maintaining O2 saturations in the low 90s on room air. Working well with the incentive spirometer. Chest x-ray reveals persistent tiny left apical pneumothorax. Chest tube remains in place. Basilar atelectasis. White count 8.0. Hemoglobin 7.9. Platelet count 180,000. Sodium 136. Potassium 4.3. Creatinine 1.00. Glucose 188. Creatinine #at KVO. Remains on insulin drip at 11 units per hour. Continued on bronchodilators. Heparin for DVT prophylaxis. Objective - Vital Signs Vital signs: Vital Signs Temp 98.0 F 04/22/20 08:00 Pulse 85 04/22/20 09:00 Resp 30 H 04/22/20 09:00 BP 135/55 04/22/20 09:00 Pulse Ox 92 L 04/22/20 09:00 Intake & Output 04/21/20 04/22/20 04/22/20 18:59 06:59 18:59 Intake Total 907.852 389.958 125.466 Output Total 885 755 220 Balance 22.852 -365.042 -94.534 Weight 76.9 kg 80.6 kg Intake: IV 53.5 36 49 0.9 Flush 51 36 9 0.9NS 40 Nitro 2.5 Intake, IV Titration 354.352 103.958 76.466 Amount Clevidipine Butyrate 25 9.467 mg In Empty Bag 1 bag @ 1 MG/HR 2 mls/hr IV .Q24H [facility] Rx#:[id number] Insulin Regular 100 unit 74.885 63.958 76.466 In Sodium Chloride 0.9% 100 ml @ Per Protocol IV .Q0M [facility] Rx#:[id number] Lactated Ringers 1,000 ml 270 40 @ 20 mls/hr IV .Q24H [facility] Rx#:[id number] Oral 500 250 Output: Chest Tube Drainage 255 20 120 Chest Tube Left Pleural/ 255 20 120 Mediastinal Urine 630 735 100 Other: Voiding Method Indwelling Catheter Indwelling Catheter # Bowel Movements 1 ABP, PAP, CO, CI - Last Documented Arterial Blood Pressure 99/64 Pulmonary Artery Pressure 28/12 Cardiac Output 8.1 Cardiac Index 4.5 - Exam GENERAL EXAM: Awake, alert very pleasant 79-year-old female patient, on room air, appears comfortable in no apparent distress. HEAD: Normocephalic. EYES: Normal reaction of pupils, equal size. NOSE: Clear with pink turbinates. THROAT: No erythema or exudates. NECK: No masses, no JVD. Right Clayton-Jessica catheter in place. CHEST: Sternal dressing dry and intact. Heart Hugger in place. Left sided chest tube in place. LUNGS: Equal air entry with faint crackles in the posterior bases. CVS: S1 and S2 normal with no audible murmur, regular rhythm. ABDOMEN: No hepatosplenomegaly, normal bowel sounds, no guarding or rigidity. SPINE: No scoliosis or deformity SKIN: No rashes CENTRAL NERVOUS SYSTEM: Alert and oriented 3. No focal deficits, tone is normal in all 4 extremities. EXTREMITIES: There is trace peripheral edema. No clubbing, no cyanosis. Peripheral pulses are intact. SCDs in place. - Labs CBC & Chem 7: 04/22/20 09:42 04/22/20 09:25 Labs: Abnormal Lab Results - Last 24 Hours (Table) 04/21/20 04/21/20 04/21/20 Range/Units 11:04 12:22 13:07 RBC (3.80-5.40) m/uL Hgb (11.4-16.0) gm/dL Hct (34.0-46.0) % RDW (11.5-15.5) % Lymphocytes # (1.0-4.8) k/uL Sodium (137-145) mmol/L Chloride (98-107) mmol/L BUN (7-17) mg/dL Glucose (74-99) mg/dL POC Glucose (mg/dL) 184 H 184 H 175 H (75-99) mg/dL Total Protein (6.3-8.2) g/dL 04/21/20 04/21/20 04/21/20 Range/Units 14:33 15:23 16:29 RBC (3.80-5.40) m/uL Hgb (11.4-16.0) gm/dL Hct (34.0-46.0) % RDW (11.5-15.5) % Lymphocytes # (1.0-4.8) k/uL Sodium (137-145) mmol/L Chloride (98-107) mmol/L BUN (7-17) mg/dL Glucose (74-99) mg/dL POC Glucose (mg/dL) 172 H 162 H 111 H (75-99) mg/dL Total Protein (6.3-8.2) g/dL 04/21/20 04/21/20 04/21/20 Range/Units 17:17 18:19 19:08 RBC (3.80-5.40) m/uL Hgb (11.4-16.0) gm/dL Hct (34.0-46.0) % RDW (11.5-15.5) % Lymphocytes # (1.0-4.8) k/uL Sodium (137-145) mmol/L Chloride (98-107) mmol/L BUN (7-17) mg/dL Glucose (74-99) mg/dL POC Glucose (mg/dL) 123 H 117 H 129 H (75-99) mg/dL Total Protein (6.3-8.2) g/dL 04/21/20 04/21/20 04/22/20 Range/Units 21:24 23:52 01:14 RBC (3.80-5.40) m/uL Hgb (11.4-16.0) gm/dL Hct (34.0-46.0) % RDW (11.5-15.5) % Lymphocytes # (1.0-4.8) k/uL Sodium (137-145) mmol/L Chloride (98-107) mmol/L BUN (7-17) mg/dL Glucose (74-99) mg/dL POC Glucose (mg/dL) 125 H 73 L 143 H (75-99) mg/dL Total Protein (6.3-8.2) g/dL 04/22/20 04/22/20 04/22/20 Range/Units 02:53 04:08 05:12 RBC (3.80-5.40) m/uL Hgb (11.4-16.0) gm/dL Hct (34.0-46.0) % RDW (11.5-15.5) % Lymphocytes # (1.0-4.8) k/uL Sodium (137-145) mmol/L Chloride (98-107) mmol/L BUN (7-17) mg/dL Glucose (74-99) mg/dL POC Glucose (mg/dL) 224 H 212 H 181 H (75-99) mg/dL Total Protein (6.3-8.2) g/dL 04/22/20 04/22/20 04/22/20 Range/Units 08:11 09:13 09:25 RBC (3.80-5.40) m/uL Hgb (11.4-16.0) gm/dL Hct (34.0-46.0) % RDW (11.5-15.5) % Lymphocytes # (1.0-4.8) k/uL Sodium 136 L (137-145) mmol/L Chloride 108 H (98-107) mmol/L BUN 23 H (7-17) mg/dL Glucose 188 H (74-99) mg/dL POC Glucose (mg/dL) 175 H 206 H (75-99) mg/dL Total Protein 5.8 L (6.3-8.2) g/dL 04/22/20 04/22/20 Range/Units 09:42 10:15 RBC 2.97 L (3.80-5.40) m/uL Hgb 7.9 L (11.4-16.0) gm/dL Hct 25.1 L (34.0-46.0) % RDW 19.8 H (11.5-15.5) % Lymphocytes # 0.8 L (1.0-4.8) k/uL Sodium (137-145) mmol/L Chloride (98-107) mmol/L BUN (7-17) mg/dL Glucose (74-99) mg/dL POC Glucose (mg/dL) 261 H (75-99) mg/dL Total Protein (6.3-8.2) g/dL Assessment and Plan Assessment: 1 Symptomatically coronary artery disease with involvement of the distal left main in the range of 50% with an eccentric plaque in addition to critical disease involving the mid LAD. Status post off-pump coronary artery bypass grafting utilizing a WEBER to LAD, saphenous vein graft to the obtuse marginal and diagonal branch. Postoperative day #2. 2 Exertional dyspnea and angina secondary to above, currently intubated on the mechanical ventilator as an expected outcome of surgery 3 Diabetes mellitus 4 Hypertension 5 Hyperlipidemia Plan: The patient was seen and evaluated by Dr. Cary Chest x-ray and labs reviewed Continue bronchodilators Encouraged regarding the increased use the incentive spirometer and cough and deep breathing exercises Increase her activity as tolerated We will continue to follow and make further recommendations based on her clinical status I, the cosigning physician, performed a history & physical examination of the patient. Lungs sounds with faint crackles in the posterior bases. Maintaining good O2 saturations in the 90s on room air. I discussed the assessment and plan of care with my nurse practitioner, Brit Dumont. I attest to the above note as dictated by her.
--- NOTE | 2020-04-22 10:57 | P.PN ---
Subjective Progress Note Date: 04/22/20 Principal diagnosis: Severe coronary artery disease this is an 79-year-old female patient was coronary artery disease and prior stenting of the LAD as well as hypertension and dyslipidemia was experiencing symptoms of shortness of breath with exertion concerning for angina. She underwent a heart catheterization and that revealed severe disease involving the left main coronary artery. She underwent yesterday CABG 3 was WEBER to LAD and SVG to diagonal and SVG to OM. The patient was seen today 04/22/2019. She is doing good recovery. She is on maximize medical treatment. Urine output has been marginal. The patient is possibly can be transferred out of the ICU later on today. Objective - Vital Signs Vital signs: Vital Signs Temp 98.0 F 04/22/20 08:00 Pulse 80 04/22/20 10:00 Resp 18 04/22/20 10:00 BP 151/79 04/22/20 10:00 Pulse Ox 94 L 04/22/20 10:00 Intake & Output 04/21/20 04/22/20 04/22/20 18:59 06:59 18:59 Intake Total 907.852 389.958 125.466 Output Total 885 755 220 Balance 22.852 -365.042 -94.534 Weight 76.9 kg 80.6 kg Intake: IV 53.5 36 49 0.9 Flush 51 36 9 0.9NS 40 Nitro 2.5 Intake, IV Titration 354.352 103.958 76.466 Amount Clevidipine Butyrate 25 9.467 mg In Empty Bag 1 bag @ 1 MG/HR 2 mls/hr IV .Q24H [facility] Rx#:[id number] Insulin Regular 100 unit 74.885 63.958 76.466 In Sodium Chloride 0.9% 100 ml @ Per Protocol IV .Q0M [facility] Rx#:[id number] Lactated Ringers 1,000 ml 270 40 @ 20 mls/hr IV .Q24H [facility] Rx#:[id number] Oral 500 250 Output: Chest Tube Drainage 255 20 120 Chest Tube Left Pleural/ 255 20 120 Mediastinal Urine 630 735 100 Other: Voiding Method Indwelling Catheter Indwelling Catheter # Bowel Movements 1 ABP, PAP, CO, CI - Last Documented Arterial Blood Pressure 99/64 Pulmonary Artery Pressure 28/12 Cardiac Output 8.1 Cardiac Index 4.5 - Constitutional General appearance: Present: no acute distress - Respiratory Respiratory: bilateral: diminished - Cardiovascular Rhythm: regular - Labs CBC & Chem 7: 04/22/20 09:42 04/22/20 09:25 Labs: Abnormal Lab Results - Last 24 Hours (Table) 04/21/20 04/21/20 04/21/20 Range/Units 11:04 12:22 13:07 RBC (3.80-5.40) m/uL Hgb (11.4-16.0) gm/dL Hct (34.0-46.0) % RDW (11.5-15.5) % Lymphocytes # (1.0-4.8) k/uL Sodium (137-145) mmol/L Chloride (98-107) mmol/L BUN (7-17) mg/dL Glucose (74-99) mg/dL POC Glucose (mg/dL) 184 H 184 H 175 H (75-99) mg/dL Total Protein (6.3-8.2) g/dL 04/21/20 04/21/20 04/21/20 Range/Units 14:33 15:23 16:29 RBC (3.80-5.40) m/uL Hgb (11.4-16.0) gm/dL Hct (34.0-46.0) % RDW (11.5-15.5) % Lymphocytes # (1.0-4.8) k/uL Sodium (137-145) mmol/L Chloride (98-107) mmol/L BUN (7-17) mg/dL Glucose (74-99) mg/dL POC Glucose (mg/dL) 172 H 162 H 111 H (75-99) mg/dL Total Protein (6.3-8.2) g/dL 04/21/20 04/21/20 04/21/20 Range/Units 17:17 18:19 19:08 RBC (3.80-5.40) m/uL Hgb (11.4-16.0) gm/dL Hct (34.0-46.0) % RDW (11.5-15.5) % Lymphocytes # (1.0-4.8) k/uL Sodium (137-145) mmol/L Chloride (98-107) mmol/L BUN (7-17) mg/dL Glucose (74-99) mg/dL POC Glucose (mg/dL) 123 H 117 H 129 H (75-99) mg/dL Total Protein (6.3-8.2) g/dL 04/21/20 04/21/20 04/22/20 Range/Units 21:24 23:52 01:14 RBC (3.80-5.40) m/uL Hgb (11.4-16.0) gm/dL Hct (34.0-46.0) % RDW (11.5-15.5) % Lymphocytes # (1.0-4.8) k/uL Sodium (137-145) mmol/L Chloride (98-107) mmol/L BUN (7-17) mg/dL Glucose (74-99) mg/dL POC Glucose (mg/dL) 125 H 73 L 143 H (75-99) mg/dL Total Protein (6.3-8.2) g/dL 04/22/20 04/22/20 04/22/20 Range/Units 02:53 04:08 05:12 RBC (3.80-5.40) m/uL Hgb (11.4-16.0) gm/dL Hct (34.0-46.0) % RDW (11.5-15.5) % Lymphocytes # (1.0-4.8) k/uL Sodium (137-145) mmol/L Chloride (98-107) mmol/L BUN (7-17) mg/dL Glucose (74-99) mg/dL POC Glucose (mg/dL) 224 H 212 H 181 H (75-99) mg/dL Total Protein (6.3-8.2) g/dL 04/22/20 04/22/20 04/22/20 Range/Units 08:11 09:13 09:25 RBC (3.80-5.40) m/uL Hgb (11.4-16.0) gm/dL Hct (34.0-46.0) % RDW (11.5-15.5) % Lymphocytes # (1.0-4.8) k/uL Sodium 136 L (137-145) mmol/L Chloride 108 H (98-107) mmol/L BUN 23 H (7-17) mg/dL Glucose 188 H (74-99) mg/dL POC Glucose (mg/dL) 175 H 206 H (75-99) mg/dL Total Protein 5.8 L (6.3-8.2) g/dL 04/22/20 04/22/20 Range/Units 09:42 10:15 RBC 2.97 L (3.80-5.40) m/uL Hgb 7.9 L (11.4-16.0) gm/dL Hct 25.1 L (34.0-46.0) % RDW 19.8 H (11.5-15.5) % Lymphocytes # 0.8 L (1.0-4.8) k/uL Sodium (137-145) mmol/L Chloride (98-107) mmol/L BUN (7-17) mg/dL Glucose (74-99) mg/dL POC Glucose (mg/dL) 261 H (75-99) mg/dL Total Protein (6.3-8.2) g/dL Assessment and Plan Assessment: Assessment #1 severe coronary artery disease and status post CABG #2 prior coronary revascularization with stenting #3 hypertension #4 dyslipidemia #5 carotid disease Plan #1 continue the current medical regimen #2 follow-up with the patient
[2020-04-22] MEDS ORDERED: KETOROLAC 15 MG/ML 1 ML VIAL IVP PRN (10:59)
[2020-04-22 11:20] LABS: Glucose,Whole Blood 319 mg/dL (75-99)
[2020-04-22] MEDS ORDERED: LOSARTAN 25 MG TAB PO SCH (12:00)
[2020-04-22 12:05] LABS: Glucose,Whole Blood 159 mg/dL (75-99)
[2020-04-22 12:57] LABS: Glucose,Whole Blood 218 mg/dL (75-99)
[2020-04-22 14:01] LABS: Glucose,Whole Blood 240 mg/dL (75-99)
[2020-04-22 15:26] LABS: Glucose,Whole Blood 196 mg/dL (75-99)
--- NOTE | 2020-04-22 16:12 | PN ---
PROGRESS NOTE Patient is seen for followup for chronic kidney disease. She is status post coronary artery bypass surgery. Baseline creatinine around 1. Serum creatinine yesterday was 0.8 mg/dL. The patient has had good urine output. She is status post coronary artery bypass surgery day #2. Currently doing very well. EXAMINATION: Blood pressure was 135/55, heart rate of 68 per minute, she is afebrile. Examination of the heart S1, S2. Examination of the lungs, bilateral breath sounds are heard. Abdomen is soft. Examination lower extremities shows bilateral extremities to be wrapped. No significant edema noted. [employer]ING [employer] exam grossly intact. LAB: Show sodium 136, potassium 4.3, chloride 108, CO2 is 22, BUN 23, creatinine 1.0, hemoglobin 7.9 g/dL. ASSESSMENT: 1. Chronic kidney disease, NKF stage 2-3, baseline creatinine around 1-1.2 mg/dL secondary to nephrosclerosis. 2. Status post coronary artery bypass surgery, day 2, doing well. 3. Anemia. No active bleeding noted currently. 4. Hypertension, currently controlled. Low-dose Cozaar has been restarted. PLAN: DC Toradol. May continue with the Cozaar for now. Encourage increased oral intake. Repeat labs in a.m. Check iron studies and add IV iron if iron saturation is low. MMODL / IJN: [id number] /
[2020-04-22 16:39] LABS: Glucose,Whole Blood 276 mg/dL (75-99)
[2020-04-22] MEDS ORDERED: INSULIN ASPART (NovoLOG) 100 UNIT/ML VIAL SQ SCH (17:30)
[2020-04-22] MEDS: INSULIN DETEMIR (LEVEMIR) 100 UNIT/ML SYR SQ SCH (17:43)
[2020-04-22 17:54] LABS: Glucose,Whole Blood 157 mg/dL (75-99)
[2020-04-22] MEDS: KETOROLAC 15 MG/ML 1 ML VIAL IVP PRN (18:41)
[2020-04-22 19:30] LABS: Glucose,Whole Blood 232 mg/dL (75-99)
[2020-04-22 20:40] LABS: Glucose,Whole Blood 302 mg/dL (75-99)
[2020-04-22] MEDS: ATORVASTATIN 80 MG TAB PO SCH (20:48)
[2020-04-22] MEDS: INSULIN ASPART (NovoLOG) 100 UNIT/ML VIAL SQ SCH ×2 (20:49→22:48)
[2020-04-22] MEDS: SODIUM CHLORIDE 0.9% 1,000 ML IV SCH ×2 (22:44→22:45)
[2020-04-22] MEDS: ATORVASTATIN 40 MG TAB PO SCH (22:48)
[2020-04-22] MEDS: ISOSORBIDE MONONITRATE ER 30 MG TAB.ER.24H PO SCH (22:48)
[2020-04-22] MEDS: MUPIROCIN 2% OINT 22 GM TUBE NASAL SCH (22:49)
[2020-04-22] MEDS: METOPROLOL TARTRATE 50 MG TAB PO SCH (22:49)
[2020-04-22 23:00] LABS: % Iron Saturation 11.35 (12.00-45.00)
[2020-04-23 02:00] LABS: Glucose,Whole Blood 288 mg/dL (75-99)
[2020-04-23] MEDS: INSULIN ASPART (NovoLOG) 100 UNIT/ML VIAL SQ SCH ×5 (02:06→20:31)
[2020-04-23] MEDS: HEPARIN SODIUM,PORCINE 5,000 UNIT/ML 1 ML VIAL SQ SCH ×3 (03:22→20:31)
[2020-04-23 06:08] LABS: Glucose,Whole Blood 167 mg/dL (75-99)
[2020-04-23] MEDS: FERROUS SULFATE 325 MG TAB PO SCH ×2 (06:09→17:13)
[2020-04-23] MEDS: PANTOPRAZOLE 40 MG TABLET PO SCH (06:09)
[2020-04-23] MEDS: ASCORBIC ACID 500 MG TAB PO SCH ×2 (06:09→17:13)
[2020-04-23 06:47] LABS: Anisocytosis Slight; HCT 24.9 % (34.0-46.0); HGB 8.1 gm/dL (11.4-16.0); Hypochromasia Slight; MCH 27.8 pg (25.0-35.0); MCHC 32.7 g/dL (31.0-37.0); MCV 84.9 fL (80.0-100.0); Platelet Count 184 k/uL (150-450); RBC 2.93 m/uL (3.80-5.40); RDW 19.8 % (11.5-15.5); WBC 6.5 k/uL (3.8-10.6)
--- NOTE | 2020-04-23 06:48 | XR ---
EXAMINATION TYPE: XR chest 2V DATE OF EXAM: 04/23/2020 COMPARISON: Chest x-ray one day earlier and older studies. HISTORY: Post open cardiac surgery. TECHNIQUE: Frontal and lateral views of the chest are obtained. FINDINGS: Interval removal of right internal jugular Cordis sheath. Overlying sternal wires and medi astinal clips redemonstrated. Mediastinal drainage catheter along with left basilar chest tube have b een removed in the interval. No residual left apical pneumothorax on current study. Stable patchy lef t left greater than right bibasilar opacities. Cardiac silhouette size upper limits of normal with at herosclerotic aorta. Osseous structures are intact. Overlying left-sided subcutaneous emphysema is re solving. IMPRESSION: Interval removal of left sided chest tube without residual pneumothorax. Resolving left-s ided subcutaneous emphysema. Persistent small to tiny right pleural effusion and left greater than ri ght bibasilar atelectatic change.
[2020-04-23 07:07] LABS: Calcium 8.8 mg/dL (8.4-10.2)
[2020-04-23] MEDS: IPRATROPIUM-ALBUTEROL 3 ML NEB INHALATION SCH ×4 (07:49→20:06)
--- NOTE | 2020-04-23 08:29 | P.PN ---
Subjective Progress Note Date: 04/23/20 Principal diagnosis: Symptomatic coronary artery disease with left main disease, unstable angina. 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 POD #3 off-pump coronary artery bypass grafting 3 with the left internal mammary artery to left anterior descending artery, greater saphenous vein grafts to the second obtuse marginal and first diagonal branches, endovascular vein harvest of the left greater saphenous vein from below the knee to the groin level, and intraoperative transesophageal echocardiogram performed by anesthesia. Postoperative acute blood loss anemia, expected given patient's preoperative chronic anemia The patient is currently sitting up in a recliner on the cardiac stepdown unit in no acute distress. She states postsurgical pain is controlled on current medication regimen. Denies shortness of breath. Actively using incentive spirometer and achieving 1250 mL. She remains in normal sinus rhythm and hemody namically stable. Patient has ambulated in the hallway without difficulty. Her only complaint is of constipation from iron which she gets at home. Objective - Vital Signs Vital signs: Vital Signs Temp 97.7 F 04/23/20 03:33 Pulse 88 04/23/20 07:58 Resp 19 04/23/20 03:33 BP 161/74 04/23/20 03:33 Pulse Ox 95 04/23/20 03:33 Intake & Output 04/22/20 04/23/20 04/23/20 18:59 06:59 18:59 Intake Total 357.484 250 Output Total 920 350 Balance -562.516 -100 Weight 80.5 kg Intake: IV 207 0.9 Flush 27 0.9NS 180 Intake, IV Titration 150.484 Amount Insulin Regular 100 unit 150.484 In Sodium Chloride 0.9% 100 ml @ Per Protocol IV .Q0M [facility] Rx#:[id number] Oral 250 Lipid 0 0.9NS 0 Output: Chest Tube Drainage 120 Chest Tube Left Pleural/ 120 Mediastinal Urine 800 350 Other: Voiding Method Bedside Commode Toilet Indwelling Catheter # Voids 1 ABP, PAP, CO, CI - Last Documented Arterial Blood Pressure 99/64 Pulmonary Artery Pressure 28/12 Cardiac Output 8.1 Cardiac Index 4.5 - Constitutional General appearance: Present: cooperative, no acute distress - Respiratory Details: Lungs sounds diminished in the bases bilaterally. Respirations even, nonlabored. Currently on room air with oxygen saturation in the mid 90s. Able to achieve 1250 mL on her incentive spirometry. Strong cough. - Cardiovascular Details: S1, S2 present. Regular rate and rhythm, sinus rhythm on telemetry with rate in the 80-90s. Sternum stable. Palpable peripheral pulses bilaterally. No edema present. No calf pain or tenderness noted. Heart hugger in place with patient demonstrating appropriate use. Antiembolism stockings, SCDs present. - Gastrointestinal Gastrointestinal Comment(s): Abdomen soft, nontender, nondistended. Active bowel sounds present 4 quadran ts. Tolerating diet. - Genitourinary Genitourinary Comment(s): Continues to void clear yellow urine, output 100-400 mL at a time - Integumentary Integumentary Comment(s): Skin is warm and dry with evidence of good perfusion. Anterior chest incision well approximated and covered with dry intact dressing. Left lower extremity EVH site well approximated without redness or drainage - Neurologic Neurologic: Present: CNII-XII intact - Musculoskeletal Musculoskeletal: Present: gait normal, strength equal bilaterally - Psychiatric Psychiatric: Present: A&O x's 3, appropriate affect, intact judgment & insight - Allied health notes Allied health notes reviewed: nursing - Labs CBC & Chem 7: 04/23/20 06:32 04/23/20 06:32 Labs: Abnormal Lab Results - Last 24 Hours (Table) 04/22/20 04/22/20 04/22/20 Range/Units 09:13 09:25 09:25 RBC (3.80-5.40) m/uL Hgb (11.4-16.0) gm/dL Hct (34.0-46.0) % RDW (11.5-15.5) % Lymphocytes # (1.0-4.8) k/uL Sodium 136 L (137-145) mmol/L Chloride 108 H (98-107) mmol/L BUN 23 H (7-17) mg/dL Glucose 188 H (74-99) mg/dL POC Glucose (mg/dL) 206 H (75-99) mg/dL Iron 26 L (50-170) ug/dL % Saturation 11.35 L (12.00-45.00) Total Protein 5.8 L (6.3-8.2) g/dL 04/22/20 04/22/20 04/22/20 Range/Units 09:42 10:15 11:15 RBC 2.97 L (3.80-5.40) m/uL Hgb 7.9 L (11.4-16.0) gm/dL Hct 25.1 L (34.0-46.0) % RDW 19.8 H (11.5-15.5) % Lymphocytes # 0.8 L (1.0-4.8) k/uL Sodium (137-145) mmol/L Chloride (98-107) mmol/L BUN (7-17) mg/dL Glucose (74-99) mg/dL POC Glucose (mg/dL) 261 H 319 H (75-99) mg/dL Iron (50-170) ug/dL % Saturation (12.00-45.00) Total Protein (6.3-8.2) g/dL 04/22/20 04/22/20 04/22/20 Range/Units 12:03 12:56 14:00 RBC (3.80-5.40) m/uL Hgb (11.4-16.0) gm/dL Hct (34.0-46.0) % RDW (11.5-15.5) % Lymphocytes # (1.0-4.8) k/uL Sodium (137-145) mmol/L Chloride (98-107) mmol/L BUN (7-17) mg/dL Glucose (74-99) mg/dL POC Glucose (mg/dL) 159 H 218 H 240 H (75-99) mg/dL Iron (50-170) ug/dL % Saturation (12.00-45.00) Total Protein (6.3-8.2) g/dL 04/22/20 04/22/20 04/22/20 Range/Units 15:25 16:37 17:52 RBC (3.80-5.40) m/uL Hgb (11.4-16.0) gm/dL Hct (34.0-46.0) % RDW (11.5-15.5) % Lymphocytes # (1.0-4.8) k/uL Sodium (137-145) mmol/L Chloride (98-107) mmol/L BUN (7-17) mg/dL Glucose (74-99) mg/dL POC Glucose (mg/dL) 196 H 276 H 157 H (75-99) mg/dL Iron (50-170) ug/dL % Saturation (12.00-45.00) Total Protein (6.3-8.2) g/dL 04/22/20 04/22/20 04/23/20 Range/Units 19:28 20:39 01:59 RBC (3.80-5.40) m/uL Hgb (11.4-16.0) gm/dL Hct (34.0-46.0) % RDW (11.5-15.5) % Lymphocytes # (1.0-4.8) k/uL Sodium (137-145) mmol/L Chloride (98-107) mmol/L BUN (7-17) mg/dL Glucose (74-99) mg/dL POC Glucose (mg/dL) 232 H 302 H 288 H (75-99) mg/dL Iron (50-170) ug/dL % Saturation (12.00-45.00) Total Protein (6.3-8.2) g/dL 04/23/20 04/23/20 04/23/20 Range/Units 06:07 06:32 06:32 RBC 2.93 L (3.80-5.40) m/uL Hgb 8.1 L (11.4-16.0) gm/dL Hct 24.9 L (34.0-46.0) % RDW 19.8 H (11.5-15.5) % Lymphocytes # (1.0-4.8) k/uL Sodium (137-145) mmol/L Chloride 110 H (98-107) mmol/L BUN 24 H (7-17) mg/dL Glucose 157 H (74-99) mg/dL POC Glucose (mg/dL) 167 H (75-99) mg/dL Iron (50-170) ug/dL % Saturation (12.00-45.00) Total Protein (6.3-8.2) g/dL - Imaging and Cardiology Chest x-ray: report reviewed, image reviewed Assessment and Plan Assessment: 1. Symptomatic coronary artery disease with left main disease, unstable angina, status post three-vessel off-pump CABG 2. History of coronary artery disease with stent placement to the LAD in 2010 3. Hypertension 4. Hyperlipidemia 5. Insulin-dependent diabetes mellitus with hemoglobin A1c 6.2% 6. Left internal carotid artery stenosis 50-79% 7. Stage III chronic kidney disease 8. Chronic anemia 9. Previous tobacco dependence with preoperative FEV1 87% of predicted 10. 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 Degenerative joint disease 12. History of benign brain tumor 20 years ago 13. Family history of coronary artery disease with son passing away at age 59 from myocardial infarction 14. Postoperative acute blood loss anemia, expected given patient's preoperative chronic anemia Plan: 1. Continue aspirins, statin, Plavix, beta hilary therapy. Will increase beta hilary therapy as tolerated, increased to 50 mg twice daily today. Continue losartan, increased to 25 mg daily today 2. Encourage incentive spirometry 10 times every hour while awake. Bronchodil ators per pulmonology 3. Increase activity, ambulate as tolerated. PT/OT/cardiac rehab consulted 4. Will monitor daily labs and x-rays. Electrolyte replacement per protocol. No transfusion today 5. GI/DVT prophylaxis 6. Insulin management per primary care service 7. Pain control with current medication regimen. 8. First postoperative shower today 9. Strict accurate intake and output. Daily weights 10. Discharge planning in progress. Anticipate discharge to home with home care in 24-48 hours 11. More recommendations to follow as patient progresses Time with Patient: Greater than 30
[2020-04-23] MEDS: ASPIRIN 325 MG TAB PO SCH (08:57)
[2020-04-23] MEDS: polyethylene glycoL 3350 17 GM POWD.PACK PO SCH (08:58)
[2020-04-23] MEDS: METOPROLOL TARTRATE 50 MG TAB PO SCH ×2 (08:58→20:31)
[2020-04-23] MEDS: CLOPIDOGREL 75 MG TAB PO SCH (08:58)
--- NOTE | 2020-04-23 09:41 | P.PN ---
Subjective Progress Note Date: 04/23/20 Principal diagnosis: Severe coronary artery disease this is an 79-year-old female patient was coronary artery disease and prior stenting of the LAD as well as hypertension and dyslipidemia was experiencing symptoms of shortness of breath with exertion concerning for angina. She underwent a heart catheterization and that revealed severe disease involving the left main coronary artery. She underwent yesterday CABG 3 was WEBER to LAD and SVG to diagonal and SVG to OM. The patient was seen today April [id number]. She is doing great recovery. She is asymptomatic. Hemodynamically she is slightly hypertensive and the dose of metoprolol was increased to 50 mg by mouth twice a day by the surgical team. The patient possibly can be discharged home or to extended care facility or rehabilitation in the next 24-48 hours. Objective - Vital Signs Vital signs: Vital Signs Temp 97.7 F 04/23/20 03:33 Pulse 88 04/23/20 07:58 Resp 19 04/23/20 03:33 BP 161/74 04/23/20 03:33 Pulse Ox 95 04/23/20 03:33 Intake & Output 04/22/20 04/23/20 04/23/20 18:59 06:59 18:59 Intake Total 357.484 250 240 Output Total 920 350 Balance -562.516 -100 240 Weight 80.5 kg Intake: IV 207 0.9 Flush 27 0.9NS 180 Intake, IV Titration 150.484 Amount Insulin Regular 100 unit 150.484 In Sodium Chloride 0.9% 100 ml @ Per Protocol IV .Q0M [facility] Rx#:[id number] Oral 250 240 Lipid 0 0.9NS 0 Output: Chest Tube Drainage 120 Chest Tube Left Pleural/ 120 Mediastinal Urine 800 350 Other: Voiding Method Bedside Commode Toilet Indwelling Catheter # Voids 1 ABP, PAP, CO, CI - Last Documented Arterial Blood Pressure 99/64 Pulmonary Artery Pressure 28/12 Cardiac Output 8.1 Cardiac Index 4.5 - Constitutional General appearance: Present: no acute distress - Respiratory Respiratory: bilateral: diminished - Cardiovascular Rhythm: regular Heart sounds: normal: S1, S2 - Labs CBC & Chem 7: 04/23/20 06:32 04/23/20 06:32 Labs: Abnormal Lab Results - Last 24 Hours (Table) 01/01/21 01/01/21 01/01/21 Range/Units 09:25 09:25 09:42 RBC 2.97 L (3.80-5.40) m/uL Hgb 7.9 L (11.4-16.0) gm/dL Hct 25.1 L (34.0-46.0) % RDW 19.8 H (11.5-15.5) % Lymphocytes # 0.8 L (1.0-4.8) k/uL Sodium 136 L (137-145) mmol/L Chloride 108 H (98-107) mmol/L BUN 23 H (7-17) mg/dL Glucose 188 H (74-99) mg/dL POC Glucose (mg/dL) (75-99) mg/dL Iron 26 L (50-170) ug/dL % Saturation 11.35 L (12.00-45.00) Total Protein 5.8 L (6.3-8.2) g/dL 04/22/20 04/22/20 04/22/20 Range/Units 10:15 11:15 12:03 RBC (3.80-5.40) m/uL Hgb (11.4-16.0) gm/dL Hct (34.0-46.0) % RDW (11.5-15.5) % Lymphocytes # (1.0-4.8) k/uL Sodium (137-145) mmol/L Chloride (98-107) mmol/L BUN (7-17) mg/dL Glucose (74-99) mg/dL POC Glucose (mg/dL) 261 H 319 H 159 H (75-99) mg/dL Iron (50-170) ug/dL % Saturation (12.00-45.00) Total Protein (6.3-8.2) g/dL 04/22/20 04/22/20 04/22/20 Range/Units 12:56 14:00 15:25 RBC (3.80-5.40) m/uL Hgb (11.4-16.0) gm/dL Hct (34.0-46.0) % RDW (11.5-15.5) % Lymphocytes # (1.0-4.8) k/uL Sodium (137-145) mmol/L Chloride (98-107) mmol/L BUN (7-17) mg/dL Glucose (74-99) mg/dL POC Glucose (mg/dL) 218 H 240 H 196 H (75-99) mg/dL Iron (50-170) ug/dL % Saturation (12.00-45.00) Total Protein (6.3-8.2) g/dL 04/22/20 04/22/20 04/22/20 Range/Units 16:37 17:52 19:28 RBC (3.80-5.40) m/uL Hgb (11.4-16.0) gm/dL Hct (34.0-46.0) % RDW (11.5-15.5) % Lymphocytes # (1.0-4.8) k/uL Sodium (137-145) mmol/L Chloride (98-107) mmol/L BUN (7-17) mg/dL Glucose (74-99) mg/dL POC Glucose (mg/dL) 276 H 157 H 232 H (75-99) mg/dL Iron (50-170) ug/dL % Saturation (12.00-45.00) Total Protein (6.3-8.2) g/dL 04/22/20 04/23/20 04/23/20 Range/Units 20:39 01:59 06:07 RBC (3.80-5.40) m/uL Hgb (11.4-16.0) gm/dL Hct (34.0-46.0) % RDW (11.5-15.5) % Lymphocytes # (1.0-4.8) k/uL Sodium (137-145) mmol/L Chloride (98-107) mmol/L BUN (7-17) mg/dL Glucose (74-99) mg/dL POC Glucose (mg/dL) 302 H 288 H 167 H (75-99) mg/dL Iron (50-170) ug/dL % Saturation (12.00-45.00) Total Protein (6.3-8.2) g/dL 04/23/20 04/23/20 Range/Units 06:32 06:32 RBC 2.93 L (3.80-5.40) m/uL Hgb 8.1 L (11.4-16.0) gm/dL Hct 24.9 L (34.0-46.0) % RDW 19.8 H (11.5-15.5) % Lymphocytes # (1.0-4.8) k/uL Sodium (137-145) mmol/L Chloride 110 H (98-107) mmol/L BUN 24 H (7-17) mg/dL Glucose 157 H (74-99) mg/dL POC Glucose (mg/dL) (75-99) mg/dL Iron (50-170) ug/dL % Saturation (12.00-45.00) Total Protein (6.3-8.2) g/dL Assessment and Plan Assessment: Assessment #1 severe coronary artery disease and status post CABG #2 prior coronary revascularization with stenting #3 hypertension #4 dyslipidemia #5 carotid disease Plan #1 continue the current medical regimen #2 follow-up with the patient
[2020-04-23 12:08] LABS: Glucose,Whole Blood 301 mg/dL (75-99)
[2020-04-23] MEDS: LOSARTAN 25 MG TAB PO SCH (12:18)
--- NOTE | 2020-04-23 14:04 | PN ---
PROGRESS NOTE This is a patient who is postop day status post bypass grafting. The patient had an off pump bypass grafting using WEBER to LAD, and saphenous vein graft to the obtuse marginal and diagonal branch. The patient had routine postoperative ventilator management. She has a history of diabetes, hypertension, and hyperlipidemia. She is currently off of O2. She was transferred out of the intensive care unit. Today, she was taking a shower. She looks good. No complaints. No shortness of breath, chest pain, chest discomfort, fever, chills, or phlegm production. PHYSICAL EXAMINATION: VITAL SIGNS: Vital signs include a temperature which is 97.7, heart rate which is 84, respiratory rate 19, blood pressure 161/74, mean 103, and a room air saturation of 95%. Appears in no acute distress. HEENT: Examination is grossly unremarkable. NECK: Supple. Cardiovascular examination reveals regular rhythm and rate. S1, S2 normal. LUNGS: Relatively clear. A few scattered rhonchi. ABDOMEN: Soft. Bowel sounds are heard. EXTREMITIES are intact. No edema. SKIN: Without rash. NEUROLOGIC: Examination is nonfocal. White count 6.5, hemoglobin 8.1, hematocrit 24.9, platelet count 184,000. Sodium 141, potassium 4, chloride 110, CO2 25, anion gap is 6. BUN and creatinine were 24 and 1.03. Microbiology is currently negative. A chest x-ray today shows post-surgical changes and some minimal basilar atelectasis. Current medications are reviewed. These medications are appropriate for the post open- heart patient. ASSESSMENT: 1. Postoperative day #3 status post off pump bypass grafting with WEBER to LAD, saphenous vein graft to the obtuse marginal and diagonal branch. 2. Routine postoperative ventilator management, with extubation five hours after leaving the operating room. 3. Diabetes mellitus. 4. Hypertension. 5. Hyperlipidemia. PLAN: The patient is doing well. We will continue to follow. We encourage deep breathing, coughing, clearing of secretions and hourly use of the incentive spirometer. The patient has been weaned off nasal O2. Possible discharge either tomorrow or Saturday. MMGIANCARLOL / MARTÍNN: [id number] /
[2020-04-23 16:38] LABS: Glucose,Whole Blood 265 mg/dL (75-99)
[2020-04-23 20:21] LABS: Glucose,Whole Blood 284 mg/dL (75-99)
[2020-04-23] MEDS: ATORVASTATIN 80 MG TAB PO SCH (20:31)
[2020-04-23] MEDS: INSULIN DETEMIR (LEVEMIR) 100 UNIT/ML SYR SQ SCH (20:31)
--- NOTE | 2020-04-23 23:02 | P.PN ---
Subjective Progress Note Date: 04/21/20 Patient is a 79-year-old female with a known history of hypertension, hyperlipidemia, diabetes type 2, osteoarthritis, coronary artery disease history of stent placement of the LAD presented due to shortness of breath and exertional chest pain. Patient underwent cardiac catheterization and found to have distal left main eccentric plague appearing to be in the range of 50% and there was critical disease involving the mid LAD. RCA showed intermediate lesion with 60% range. Circumflex was nondominant and was within the normal limits. Patient was eventually hospitalized and is being considered for co ronary artery bypass surgery. Currently patient denies any complaints of chest pain or shortness of breath. No cough or sputum production. No fever no chills. Laboratory data showed WBC 6.0, hemoglobin 10.7 and platelets 213, RDW 19.4 Sodium 142, potassium 4.8, chloride 111, BUN 17 and creatinine 1.04 A1c 6.2 Hepatitis panel negative Chest x-ray showed no active cardiopulmonary disease. 04/20/2020 Patient is status post three-vessel coronary artery bypass graft. Currently on intubated and on mechanical ventilator. Chest x-ray showed small effusions with left basilar opacity likely postoperative atelectasis. NG tube is in place and chest tubes are present. Current laboratory data showed WBC 6.9, hemoglobin 8.4 and platelets 144. Creatinine 0.71 and INR 1.2 continued on GI and DVT pr ophylaxis. Pulmonary and CT surgery is on board. Blood sugar is fairly controlled. 04/21/2020 Patient is currently sitting in a chair comfortably. Awake alert and oriented x3. Patient was actually extubated 5 hours after surgery. Currently on oxygen via nasal cannula. Patient is on insulin drip for better sugar control. Chest x-ray showed left- sided chest tube in place with a new 6 mm left apical pneumothorax. Trace effusions and bibasilar atelectasis. Patient is participating in incentive spirometry. Laboratory data showed WBC 6.2, hemoglobin 8.6 and platelets 167 Potassium 4.0 and creatinine 0.84 Current medications reviewed. Current medications reviewed. Objective - Vital Signs Vital signs: Vital Signs Temp 97.4 F L 04/21/20 20:00 Pulse 68 04/21/20 20:00 Resp 18 04/21/20 20:00 BP 133/58 04/21/20 20:00 Pulse Ox 94 L 04/21/20 20:00 Intake & Output 04/21/20 04/21/20 04/22/20 06:59 18:59 06:59 Intake Total 1189.110 907.852 310.401 Output Total 1190 885 135 Balance -0.890 22.852 175.401 Weight 76.9 kg 76.9 kg Intake: IV 196.5 53.5 6 0.9 CO/CI 160 0.9 Flush 9 51 6 Nitro 27.5 2.5 Intake, IV Titration 842.610 354.352 54.401 Amount ACETAMINOPHEN IV (For NPO 100 ) 1,000 mg In Empty Bag 1 bag @ 400 mls/hr IVPB Q6H [facility] Rx#:[id number] Clevidipine Butyrate 25 32.867 9.467 mg In Empty Bag 1 bag @ 1 MG/HR 2 mls/hr IV .Q24H [facility] Rx#:[id number] Insulin Regular 100 unit 59.743 74.885 14.401 In Sodium Chloride 0.9% 100 ml @ Per Protocol IV .Q0M [facility] Rx#:[id number] Lactated Ringers 1,000 ml 600 270 40 @ 20 mls/hr IV .Q24H [facility] Rx#:[id number] ceFAZolin 2 gm In Sodium 50 Chloride 0.9% 50 ml @ 100 mls/hr IVPB Q8HR [facility] Rx# :[id number] Oral 150 500 250 Output: Chest Tube Drainage 540 255 20 Chest Tube Left Pleural/ 540 255 20 Mediastinal Urine 650 630 115 Other: Voiding Method Indwelling Catheter Indwelling Catheter Indwelling Catheter ABP, PAP, CO, CI - Last Documented Arterial Blood Pressure 99/64 Pulmonary Artery Pressure 28/12 Cardiac Output 8.1 Cardiac Index 4.5 - Exam PHYSICAL EXAMINATION: Patient is lying in the bed comfortably, no acute distress, awake alert and oriented.. HEENT: Normocephalic. Neck is supple. Pupils reactive. Nostrils clear. Oral cavity is moist. Ears reveal no drainage. Neck reveals no JVD, carotid bruits, or thyromegaly. CHEST EXAMINATION: Trachea is central. Symmetrical expansion. Lung garcia clear to auscultation and percussion. CARDIAC: Normal S1, S2 with no gallops. No murmurs , Surgical site is intact. ABDOMEN: Soft. Bowel sounds normal. No organomegaly. No abdominal bruits. Extremities: reveal no edema. No clubbing or cyanosis Neurologically awake, alert, oriented x3 with well-coordinated movements. No focal deficits noted Skin: No rash or skin lesions. Psychiatric: Coperative. Nonsuicidal Musculoskeletal: No joint swelling or deformity. Normal range of motion. - Labs CBC & Chem 7: 04/23/20 06:32 04/23/20 06:32 Labs: Abnormal Lab Results - Last 24 Hours (Table) 04/19/20 04/20/20 04/20/20 Range/Units 06:15 21:58 22:55 RBC (3.80-5.40) m/uL Hgb (11.4-16.0) gm/dL Hct (34.0-46.0) % RDW (11.5-15.5) % Lymphocytes # (1.0-4.8) k/uL Sodium (137-145) mmol/L Chloride (98-107) mmol/L Carbon Dioxide (22-30) mmol/L BUN (7-17) mg/dL Glucose (74-99) mg/dL POC Glucose (mg/dL) 125 H 124 H (75-99) mg/dL Calcium (8.4-10.2) mg/dL Alkaline Phosphatase (38-126) U/L Total Protein (6.3-8.2) g/dL Albumin (3.5-5.0) g/dL Crossmatch See Detail 04/21/20 04/21/20 04/21/20 Range/Units 00:57 01:53 02:57 RBC (3.80-5.40) m/uL Hgb (11.4-16.0) gm/dL Hct (34.0-46.0) % RDW (11.5-15.5) % Lymphocytes # (1.0-4.8) k/uL Sodium (137-145) mmol/L Chloride (98-107) mmol/L Carbon Dioxide (22-30) mmol/L BUN (7-17) mg/dL Glucose (74-99) mg/dL POC Glucose (mg/dL) 116 H 172 H 183 H (75-99) mg/dL Calcium (8.4-10.2) mg/dL Alkaline Phosphatase (38-126) U/L Total Protein (6.3-8.2) g/dL Albumin (3.5-5.0) g/dL Crossmatch 04/21/20 04/21/20 04/21/20 Range/Units 04:00 04:00 04:14 RBC 2.87 L (3.80-5.40) m/uL Hgb 8.6 L (11.4-16.0) gm/dL Hct 24.1 L (34.0-46.0) % RDW 19.4 H (11.5-15.5) % Lymphocytes # 0.8 L (1.0-4.8) k/uL Sodium 136 L (137-145) mmol/L Chloride 109 H (98-107) mmol/L Carbon Dioxide 21 L (22-30) mmol/L BUN 18 H (7-17) mg/dL Glucose 138 H (74-99) mg/dL POC Glucose (mg/dL) 149 H (75-99) mg/dL Calcium 8.1 L (8.4-10.2) mg/dL Alkaline Phosphatase 35 L (38-126) U/L Total Protein 5.4 L (6.3-8.2) g/dL Albumin 3.3 L (3.5-5.0) g/dL Crossmatch 04/21/20 04/21/20 04/21/20 Range/Units 04:47 05:07 05:57 RBC (3.80-5.40) m/uL Hgb (11.4-16.0) gm/dL Hct (34.0-46.0) % RDW (11.5-15.5) % Lymphocytes # (1.0-4.8) k/uL Sodium (137-145) mmol/L Chloride (98-107) mmol/L Carbon Dioxide (22-30) mmol/L BUN (7-17) mg/dL Glucose (74-99) mg/dL POC Glucose (mg/dL) 129 H 123 H 117 H (75-99) mg/dL Calcium (8.4-10.2) mg/dL Alkaline Phosphatase (38-126) U/L Total Protein (6.3-8.2) g/dL Albumin (3.5-5.0) g/dL Crossmatch 04/21/20 04/21/20 04/21/20 Range/Units 06:47 08:30 09:57 RBC (3.80-5.40) m/uL Hgb (11.4-16.0) gm/dL Hct (34.0-46.0) % RDW (11.5-15.5) % Lymphocytes # (1.0-4.8) k/uL Sodium (137-145) mmol/L Chloride (98-107) mmol/L Carbon Dioxide (22-30) mmol/L BUN (7-17) mg/dL Glucose (74-99) mg/dL POC Glucose (mg/dL) 137 H 230 H 192 H (75-99) mg/dL Calcium (8.4-10.2) mg/dL Alkaline Phosphatase (38-126) U/L Total Protein (6.3-8.2) g/dL Albumin (3.5-5.0) g/dL Crossmatch 04/21/20 04/21/20 04/21/20 Range/Units 11:04 12:22 13:07 RBC (3.80-5.40) m/uL Hgb (11.4-16.0) gm/dL Hct (34.0-46.0) % RDW (11.5-15.5) % Lymphocytes # (1.0-4.8) k/uL Sodium (137-145) mmol/L Chloride (98-107) mmol/L Carbon Dioxide (22-30) mmol/L BUN (7-17) mg/dL Glucose (74-99) mg/dL POC Glucose (mg/dL) 184 H 184 H 175 H (75-99) mg/dL Calcium (8.4-10.2) mg/dL Alkaline Phosphatase (38-126) U/L Total Protein (6.3-8.2) g/dL Albumin (3.5-5.0) g/dL Crossmatch 04/21/20 04/21/20 04/21/20 Range/Units 14:33 15:23 16:29 RBC (3.80-5.40) m/uL Hgb (11.4-16.0) gm/dL Hct (34.0-46.0) % RDW (11.5-15.5) % Lymphocytes # (1.0-4.8) k/uL Sodium (137-145) mmol/L Chloride (98-107) mmol/L Carbon Dioxide (22-30) mmol/L BUN (7-17) mg/dL Glucose (74-99) mg/dL POC Glucose (mg/dL) 172 H 162 H 111 H (75-99) mg/dL Calcium (8.4-10.2) mg/dL Alkaline Phosphatase (38-126) U/L Total Protein (6.3-8.2) g/dL Albumin (3.5-5.0) g/dL Crossmatch 04/21/20 04/21/20 04/21/20 Range/Units 17:17 18:19 19:08 RBC (3.80-5.40) m/uL Hgb (11.4-16.0) gm/dL Hct (34.0-46.0) % RDW (11.5-15.5) % Lymphocytes # (1.0-4.8) k/uL Sodium (137-145) mmol/L Chloride (98-107) mmol/L Carbon Dioxide (22-30) mmol/L BUN (7-17) mg/dL Glucose (74-99) mg/dL POC Glucose (mg/dL) 123 H 117 H 129 H (75-99) mg/dL Calcium (8.4-10.2) mg/dL Alkaline Phosphatase (38-126) U/L Total Protein (6.3-8.2) g/dL Albumin (3.5-5.0) g/dL Crossmatch 04/21/20 Range/Units 21:24 RBC (3.80-5.40) m/uL Hgb (11.4-16.0) gm/dL Hct (34.0-46.0) % RDW (11.5-15.5) % Lymphocytes # (1.0-4.8) k/uL Sodium (137-145) mmol/L Chloride (98-107) mmol/L Carbon Dioxide (22-30) mmol/L BUN (7-17) mg/dL Glucose (74-99) mg/dL POC Glucose (mg/dL) 125 H (75-99) mg/dL Calcium (8.4-10.2) mg/dL Alkaline Phosphatase (38-126) U/L Total Protein (6.3-8.2) g/dL Albumin (3.5-5.0) g/dL Crossmatch Assessment and Plan Assessment: Coronary artery disease s/p triple vessel coronary artery bypass graft. POD 1 Exertional chest pain and shortness of breath. Status post cardiac catheterization. Diabetes type 2 [id number] Hypertension Hyperlipidemia Osteoarthritis GERD Varicose veins on the right leg Coronary artery disease with history of initial stent placement and 2010 Previous history of smoking GI and DVT prophylaxis. Plan: Patient will be continued telemetry monitoring and statins. Aspirin is on hold. Continue with bronchodilators. Insulin sliding scale. on drip now. CT surgery and cardiology and pulmonary is on board. Continue to follow closely. Time with Patient: Greater than 30
--- NOTE | 2020-04-23 23:05 | P.PN ---
Subjective Progress Note Date: 04/22/20 Principal diagnosis: S/p CABG Patient is a 79-year-old female with a known history of hypertension, hyperlipidemia, diabetes type 2, osteoarthritis, coronary artery disease history of stent placement of the LAD presented due to shortness of breath and exertional chest pain. Patient underwent cardiac catheterization and found to have distal left main eccentric plague appearing to be in the range of 50% and there was critical disease involving the mid LAD. RCA showed intermediate lesion with 60% range. Circumflex was nondominant and was within the normal limits. Patient was eventually hospitalized and is being considered for coronary artery bypass surgery. Currently patient denies any complaints of chest pain or shortness of breath. No cough or sputum production. No fever no chills. Laboratory data showed WBC 6.0, hemoglobin 10.7 and platelets 213, RDW 19.4 Sodium 142, potassium 4.8, chloride 111, BUN 17 and creatinine 1.04 A1c 6.2 Hepatitis panel negative Chest x-ray showed no active cardiopulmonary disease. 04/20/2020 Patient is status post three-vessel coronary artery bypass graft. Currently on intubated and on mechanical ventilator. Chest x-ray showed small effusions with left basilar opacity likely postoperative atelectasis. NG tube is in place and chest tubes are present. Current laboratory data showed WBC 6.9, hemoglobin 8.4 and platelets 144. Creatinine 0.71 and INR 1.2 continued on GI and DVT prophylaxis. Pulmonary and CT surgery is on board. Blood sugar is fairly controlled. 04/21/2020 Patient is currently sitting in a chair comfortably. Awake alert and oriented x3. Patient was actually extubated 5 hours after surgery. Currently on oxygen via nasal cannula. Patient is on insulin drip for better sugar control. Chest x-ray showed left- sided chest tube in place with a new 6 mm left apical pneumothorax. Trace effusions and bibasilar atelectasis. Patient is participating in incentive spirometry. Laboratory data showed WBC 6.2, hemoglobin 8.6 and platelets 167 Potassium 4.0 and creatinine 0.84 04/22/2020 Patient is currently sitting in the chair comfortably. No acute distress. No complaints of shortness of breath. Chest soreness is much improved. Chest x- ray showed persistent tiny left apical pneumothorax. Chest tube is in place. Current level data reviewed. Patient is tolerating oral diet and is currently insulin drip and patient will be started back on home insulin regimen along with sliding scale. Patient is being transferred to medical floor today. Current medications reviewed. Objective - Vital Signs Vital signs: Vital Signs Temp 98.4 F 04/22/20 17:00 Pulse 96 04/22/20 18:00 Resp 28 H 04/22/20 18:00 BP 132/56 04/22/20 18:00 Pulse Ox 93 L 04/22/20 18:00 Intake & Output 04/22/20 04/22/20 04/23/20 06:59 18:59 06:59 Intake Total 389.958 357.484 Output Total 755 920 Balance -365.042 -562.516 Weight 80.6 kg Intake: IV 36 207 0.9 Flush 36 27 0.9NS 180 Intake, IV Titration 103.958 150.484 Amount Insulin Regular 100 unit 63.958 150.484 In Sodium Chloride 0.9% 100 ml @ Per Protocol IV .Q0M [facility] Rx#:[id number] Lactated Ringers 1,000 ml 40 @ 20 mls/hr IV .Q24H [facility] Rx#:[id number] Oral 250 Lipid 0 0.9NS 0 Output: Chest Tube Drainage 20 120 Chest Tube Left Pleural/ 20 120 Mediastinal Urine 735 800 Other: Voiding Method Indwelling Catheter Bedside Commode Indwelling Catheter # Bowel Movements 1 ABP, PAP, CO, CI - Last Documented Arterial Blood Pressure 99/64 Pulmonary Artery Pressure 28/12 Cardiac Output 8.1 Cardiac Index 4.5 - Exam PHYSICAL EXAMINATION: Patient is lying in the bed comfortably, no acute distress, awake alert and oriented.. HEENT: Normocephalic. Neck is supple. Pupils reactive. Nostrils clear. Oral cavity is moist. Ears reveal no drainage. Neck reveals no JVD, carotid bruits, or thyromegaly. CHEST EXAMINATION: Trachea is central. Symmetrical expansion. Lung garcia clear to auscultation and percussion. CARDIAC: Normal S1, S2 with no gallops. No murmurs , Surgical site is intact. ABDOMEN: Soft. Bowel sounds normal. No organomegaly. No abdominal bruits. Extremities: reveal no edema. No clubbing or cyanosis Neurologically awake, alert, oriented x3 with well-coordinated movements. No focal deficits noted Skin: No rash or skin lesions. Psychiatric: Coperative. Nonsuicidal Musculoskeletal: No joint swelling or deformity. Normal range of motion. - Labs CBC & Chem 7: 04/23/20 06:32 04/23/20 06:32 Labs: Abnormal Lab Results - Last 24 Hours (Table) 04/21/20 04/21/20 04/22/20 Range/Units 21:24 23:52 01:14 RBC (3.80-5.40) m/uL Hgb (11.4-16.0) gm/dL Hct (34.0-46.0) % RDW (11.5-15.5) % Lymphocytes # (1.0-4.8) k/uL Sodium (137-145) mmol/L Chloride (98-107) mmol/L BUN (7-17) mg/dL Glucose (74-99) mg/dL POC Glucose (mg/dL) 125 H 73 L 143 H (75-99) mg/dL Total Protein (6.3-8.2) g/dL 04/22/20 04/22/20 04/22/20 Range/Units 02:53 04:08 05:12 RBC (3.80-5.40) m/uL Hgb (11.4-16.0) gm/dL Hct (34.0-46.0) % RDW (11.5-15.5) % Lymphocytes # (1.0-4.8) k/uL Sodium (137-145) mmol/L Chloride (98-107) mmol/L BUN (7-17) mg/dL Glucose (74-99) mg/dL POC Glucose (mg/dL) 224 H 212 H 181 H (75-99) mg/dL Total Protein (6.3-8.2) g/dL 04/22/20 04/22/20 04/22/20 Range/Units 08:11 09:13 09:25 RBC (3.80-5.40) m/uL Hgb (11.4-16.0) gm/dL Hct (34.0-46.0) % RDW (11.5-15.5) % Lymphocytes # (1.0-4.8) k/uL Sodium 136 L (137-145) mmol/L Chloride 108 H (98-107) mmol/L BUN 23 H (7-17) mg/dL Glucose 188 H (74-99) mg/dL POC Glucose (mg/dL) 175 H 206 H (75-99) mg/dL Total Protein 5.8 L (6.3-8.2) g/dL 04/22/20 04/22/20 04/22/20 Range/Units 09:42 10:15 11:15 RBC 2.97 L (3.80-5.40) m/uL Hgb 7.9 L (11.4-16.0) gm/dL Hct 25.1 L (34.0-46.0) % RDW 19.8 H (11.5-15.5) % Lymphocytes # 0.8 L (1.0-4.8) k/uL Sodium (137-145) mmol/L Chloride (98-107) mmol/L BUN (7-17) mg/dL Glucose (74-99) mg/dL POC Glucose (mg/dL) 261 H 319 H (75-99) mg/dL Total Protein (6.3-8.2) g/dL 04/22/20 04/22/20 04/22/20 Range/Units 12:03 12:56 14:00 RBC (3.80-5.40) m/uL Hgb (11.4-16.0) gm/dL Hct (34.0-46.0) % RDW (11.5-15.5) % Lymphocytes # (1.0-4.8) k/uL Sodium (137-145) mmol/L Chloride (98-107) mmol/L BUN (7-17) mg/dL Glucose (74-99) mg/dL POC Glucose (mg/dL) 159 H 218 H 240 H (75-99) mg/dL Total Protein (6.3-8.2) g/dL 04/22/20 04/22/20 04/22/20 Range/Units 15:25 16:37 17:52 RBC (3.80-5.40) m/uL Hgb (11.4-16.0) gm/dL Hct (34.0-46.0) % RDW (11.5-15.5) % Lymphocytes # (1.0-4.8) k/uL Sodium (137-145) mmol/L Chloride (98-107) mmol/L BUN (7-17) mg/dL Glucose (74-99) mg/dL POC Glucose (mg/dL) 196 H 276 H 157 H (75-99) mg/dL Total Protein (6.3-8.2) g/dL 04/22/20 Range/Units 19:28 RBC (3.80-5.40) m/uL Hgb (11.4-16.0) gm/dL Hct (34.0-46.0) % RDW (11.5-15.5) % Lymphocytes # (1.0-4.8) k/uL Sodium (137-145) mmol/L Chloride (98-107) mmol/L BUN (7-17) mg/dL Glucose (74-99) mg/dL POC Glucose (mg/dL) 232 H (75-99) mg/dL Total Protein (6.3-8.2) g/dL Assessment and Plan Assessment: Coronary artery disease s/p triple vessel coronary artery bypass graft. POD 2 Exertional chest pain and shortness of breath. Status post cardiac catheterization. Diabetes type 2 [id number] Hypertension Hyperlipidemia Osteoarthritis GERD Varicose veins on the right leg Coronary artery disease with history of initial stent placement and 2010 Previous history of smoking GI and DVT prophylaxis. Plan: Patient will be continued telemetry monitoring and statins. Aspirin is on hold. Continue with bronchodilators. Insulin sliding scale. Insulin drip will be dis continued and patient will be started on Levemir and preprandial insulin. CT surgery and cardiology and pulmonary is on board. Continue to follow closely. Time with Patient: Greater than 30
--- NOTE | 2020-04-23 23:08 | P.PN ---
Subjective Progress Note Date: 04/23/20 Principal diagnosis: S/p CABG Patient is a 79-year-old female with a known history of hypertension, hyperlipidemia, diabetes type 2, osteoarthritis, coronary artery disease history of stent placement of the LAD presented due to shortness of breath and exertional chest pain. Patient underwent cardiac catheterization and found to have distal left main eccentric plague appearing to be in the range of 50% and there was critical disease involving the mid LAD. RCA showed intermediate lesion with 60% range. Circumflex was nondominant and was within the normal limits. Patient was eventually hospitalized and is being considered for coronary artery bypass surgery. Currently patient denies any complaints of chest pain or shortness of breath. No cough or sputum production. No fever no chills. Laboratory data showed WBC 6.0, hemoglobin 10.7 and platelets 213, RDW 19.4 Sodium 142, potassium 4.8, chloride 111, BUN 17 and creatinine 1.04 A1c 6.2 Hepatitis panel negative Chest x-ray showed no active cardiopulmonary disease. 04/20/2020 Patient is status post three-vessel coronary artery bypass graft. Currently on intubated and on mechanical ventilator. Chest x-ray showed small effusions with left basilar opacity likely postoperative atelectasis. NG tube is in place and chest tubes are present. Current laboratory data showed WBC 6.9, hemoglobin 8.4 and platelets 144. Creatinine 0.71 and INR 1.2 continued on GI and DVT prophylaxis. Pulmonary and CT surgery is on board. Blood sugar is fairly controlled. 04/21/2020 Patient is currently sitting in a chair comfortably. Awake alert and oriented x3. Patient was actually extubated 5 hours after surgery. Currently on oxygen via nasal cannula. Patient is on insulin drip for better sugar control. Chest x-ray showed left- sided chest tube in place with a new 6 mm left apical pneumothorax. Trace effusions and bibasilar atelectasis. Patient is participating in incentive spirometry. Laboratory data showed WBC 6.2, hemoglobin 8.6 and platelets 167 Potassium 4.0 and creatinine 0.84 04/22/2020 Patient is currently sitting in the chair comfortably. No acute distress. No complaints of shortness of breath. Chest soreness is much improved. Chest x- ray showed persistent tiny left apical pneumothorax. Chest tube is in place. Current level data reviewed. Patient is tolerating oral diet and is currently insulin drip and patient will be started back on home insulin regimen along with sliding scale. Patient is being transferred to medical floor today. 04/23/20 Patient is currently resting in the bed comfortably. No complaints of shortness of breath or chest pain. Blood pressure is slightly elevated this morning and metoprolol dose was increased. Patient is also having hyperglycemia today afternoon and preprandial insulin will be added.Patient does take oral hypoglycemics along with Levemir at home. Patient has been afebrile. No nausea vomiting or abdominal pain or diarrhea. No other acute overnight issues. Patient is currently in the general medical floor. Current medications reviewed. Objective - Vital Signs Vital signs: Vital Signs Temp 97.9 F 04/23/20 12:00 Pulse 80 04/23/20 16:21 Resp 16 04/23/20 14:00 BP 141/63 04/23/20 12:00 Pulse Ox 99 04/23/20 12:00 Intake & Output 04/23/20 04/23/20 04/24/20 06:59 18:59 06:59 Intake Total 250 960 Output Total 350 400 Balance -100 560 Weight 80.5 kg Intake: Oral 250 960 Output: Urine 350 400 Other: Voiding Method Toilet Toilet # Voids 1 ABP, PAP, CO, CI - Last Documented Arterial Blood Pressure 99/64 Pulmonary Artery Pressure 28/12 Cardiac Output 8.1 Cardiac Index 4.5 - Exam PHYSICAL EXAMINATION: Patient is lying in the bed comfortably, no acute distress, awake alert and oriented.. HEENT: Normocephalic. Neck is supple. Pupils reactive. Nostrils clear. Oral cavity is moist. Ears reveal no drainage. Neck reveals no JVD, carotid bruits, or thyromegaly. CHEST EXAMINATION: Trachea is central. Symmetrical expansion. Lung garcia clear to auscultation and percussion. CARDIAC: Normal S1, S2 with no gallops. No murmurs , Surgical site is intact. ABDOMEN: Soft. Bowel sounds normal. No organomegaly. No abdominal bruits. Extremities: reveal no edema. No clubbing or cyanosis Neurologically awake, alert, oriented x3 with well-coordinated movements. No focal deficits noted Skin: No rash or skin lesions. Psychiatric: Coperative. Nonsuicidal Musculoskeletal: No joint swelling or deformity. Normal range of motion. - Labs CBC & Chem 7: 01/02/21 06:32 04/23/20 06:32 Labs: Abnormal Lab Results - Last 24 Hours (Table) 04/22/20 04/22/20 04/22/20 Range/Units 09:25 19:28 20:39 RBC (3.80-5.40) m/uL Hgb (11.4-16.0) gm/dL Hct (34.0-46.0) % RDW (11.5-15.5) % Chloride (98-107) mmol/L BUN (7-17) mg/dL Glucose (74-99) mg/dL POC Glucose (mg/dL) 232 H 302 H (75-99) mg/dL Iron 26 L (50-170) ug/dL % Saturation 11.35 L (12.00-45.00) 04/23/20 04/23/20 04/23/20 Range/Units 01:59 06:07 06:32 RBC 2.93 L (3.80-5.40) m/uL Hgb 8.1 L (11.4-16.0) gm/dL Hct 24.9 L (34.0-46.0) % RDW 19.8 H (11.5-15.5) % Chloride (98-107) mmol/L BUN (7-17) mg/dL Glucose (74-99) mg/dL POC Glucose (mg/dL) 288 H 167 H (75-99) mg/dL Iron (50-170) ug/dL % Saturation (12.00-45.00) 04/23/20 04/23/20 04/23/20 Range/Units 06:32 12:07 16:36 RBC (3.80-5.40) m/uL Hgb (11.4-16.0) gm/dL Hct (34.0-46.0) % RDW (11.5-15.5) % Chloride 110 H (98-107) mmol/L BUN 24 H (7-17) mg/dL Glucose 157 H (74-99) mg/dL POC Glucose (mg/dL) 301 H 265 H (75-99) mg/dL Iron (50-170) ug/dL % Saturation (12.00-45.00) Assessment and Plan Assessment: Coronary artery disease s/p triple vessel coronary artery bypass graft. POD 2 Exertional chest pain and shortness of breath. Status post cardiac catheterization. Diabetes type 2 insulin-dependent Hypertension Hyperlipidemia Osteoarthritis GERD Varicose veins on the right leg Coronary artery disease with history of initial stent placement and 2011 Previous history of smoking GI and DVT prophylaxis. Plan: Patient will be continued telemetry monitoring and statins.. started back on asa and plavix. Continue with bronchodilators. Insulin sliding scale. Insulin drip will be discontinued and patient will be started on Levemir and preprandial insulin. CT surgery and cardiology and pulmonary is on board. Continue to follow c losely. Time with Patient: Greater than 30
[2020-04-24 01:59] LABS: Glucose,Whole Blood 205 mg/dL (75-99)
[2020-04-24] MEDS: INSULIN ASPART (NovoLOG) 100 UNIT/ML VIAL SQ SCH ×8 (02:06→21:17)
[2020-04-24] MEDS: HEPARIN SODIUM,PORCINE 5,000 UNIT/ML 1 ML VIAL SQ SCH ×3 (04:47→21:17)
[2020-04-24] MEDS: PANTOPRAZOLE 40 MG TABLET PO SCH (06:10)
[2020-04-24] MEDS: ASCORBIC ACID 500 MG TAB PO SCH ×2 (06:10→17:08)
[2020-04-24] MEDS: FERROUS SULFATE 325 MG TAB PO SCH ×2 (06:10→17:08)
[2020-04-24 06:51] LABS: Glucose,Whole Blood 206 mg/dL (75-99)
--- NOTE | 2020-04-24 06:52 | XR ---
EXAMINATION TYPE: XR chest 2V DATE OF EXAM: 04/24/2020 COMPARISON: Chest x-ray from yesterday and older studies HISTORY: Post open cardiac surgery. TECHNIQUE: Frontal and lateral views of the chest are obtained. FINDINGS: Overlying sternal wires and mediastinal clips redemonstrated. Patchy left left greater than right bibasilar opacities redemonstrated. Cardiac silhouette size upper limits of normal with athero sclerotic aorta. Osseous structures are intact. No pneumothorax currently. IMPRESSION: Persistent small to tiny bilateral pleural effusions and left greater than right bibasila r atelectatic change.
[2020-04-24 07:00] LABS: Anisocytosis Slight; HCT 24.3 % (34.0-46.0); Hypochromasia Slight; MCH 28.3 pg (25.0-35.0); MCHC 33.1 g/dL (31.0-37.0); MCV 85.4 fL (80.0-100.0); Mean Platelet Volume 7.9; Platelet Count 220 k/uL (150-450); RBC 2.84 m/uL (3.80-5.40); RDW 19.9 % (11.5-15.5); WBC 6.6 k/uL (3.8-10.6)
[2020-04-24 07:15] LABS: Potassium 4.5 mmol/L (3.5-5.1)
[2020-04-24] MEDS: IPRATROPIUM-ALBUTEROL 3 ML NEB INHALATION SCH ×4 (08:14→20:36)
[2020-04-24] MEDS: ASPIRIN 325 MG TAB PO SCH (08:38)
[2020-04-24] MEDS: polyethylene glycoL 3350 17 GM POWD.PACK PO SCH (08:38)
[2020-04-24] MEDS: CLOPIDOGREL 75 MG TAB PO SCH (08:38)
[2020-04-24] MEDS: METOPROLOL TARTRATE 50 MG TAB PO SCH ×2 (08:38→21:17)
[2020-04-24] MEDS ORDERED: FUROSEMIDE 10 MG/ML 2 ML VIAL IV ONE (09:16)
--- NOTE | 2020-04-24 09:56 | P.PN ---
Subjective Progress Note Date: 04/24/20 Principal diagnosis: Severe coronary artery disease This is an 79-year-old female patient was coronary artery disease and prior stenting of the LAD as well as hypertension and dyslipidemia was experiencing symptoms of shortness of breath with exertion concerning for angina. She underwent a heart catheterization and that revealed severe disease involving the left main coronary artery. She underwent yesterday CABG 3 was WEBER to LAD and SVG to diagonal and SVG to OM. The patient was seen today 04/24/2020. Clinically she has been doing very well. She remains asymptomatic. Hemodynamically she is stable with excellent blood pressure and heart rate. She is on maximize medical treatment consistent of dual antiplatelet therapy along with high intensity started along with losartan as well as metoprolol. Her glucose is elevated today and giving that the patient is going to stay one more day overnight till tomorrow to be discharged. Objective - Vital Signs Vital signs: Vital Signs Temp 97.9 F 04/24/20 08:00 Pulse 80 04/24/20 08:25 Resp 16 04/24/20 08:25 BP 134/62 04/24/20 08:00 Pulse Ox 97 04/24/20 08:00 Intake & Output 04/23/20 04/24/20 04/24/20 18:59 06:59 18:59 Intake Total 960 240 Output Total 400 500 Balance 560 -500 240 Weight 80.1 kg Intake: Oral 960 240 Output: Urine 400 500 Other: Voiding Method Toilet Toilet Toilet # Voids 2 21 # Bowel Movements 1 ABP, PAP, CO, CI - Last Documented Arterial Blood Pressure 99/64 Pulmonary Artery Pressure 28/12 Cardiac Output 8.1 Cardiac Index 4.5 - Constitutional General appearance: Present: no acute distress - Respiratory Respiratory: bilateral: CTA - Cardiovascular Rhythm: regular Heart sounds: normal: S1, S2 - Labs CBC & Chem 7: 04/24/20 06:31 04/24/20 06:31 Labs: Abnormal Lab Results - Last 24 Hours (Table) 04/23/20 04/23/20 04/23/20 Range/Units 12:07 16:36 20:20 RBC (3.80-5.40) m/uL Hgb (11.4-16.0) gm/dL Hct (34.0-46.0) % RDW (11.5-15.5) % Chloride (98-107) mmol/L BUN (7-17) mg/dL Glucose (74-99) mg/dL POC Glucose (mg/dL) 301 H 265 H 284 H (75-99) mg/dL 04/24/20 04/24/20 04/24/20 Range/Units 01:58 06:31 06:31 RBC 2.84 L (3.80-5.40) m/uL Hgb 8.0 L (11.4-16.0) gm/dL Hct 24.3 L (34.0-46.0) % RDW 19.9 H (11.5-15.5) % Chloride 110 H (98-107) mmol/L BUN 21 H (7-17) mg/dL Glucose 183 H (74-99) mg/dL POC Glucose (mg/dL) 205 H (75-99) mg/dL 04/24/20 Range/Units 06:51 RBC (3.80-5.40) m/uL Hgb (11.4-16.0) gm/dL Hct (34.0-46.0) % RDW (11.5-15.5) % Chloride (98-107) mmol/L BUN (7-17) mg/dL Glucose (74-99) mg/dL POC Glucose (mg/dL) 206 H (75-99) mg/dL Assessment and Plan Assessment: Assessment #1 severe coronary artery disease and status post CABG #2 prior coronary revascularization with stenting #3 hypertension #4 dyslipidemia #5 carotid disease Plan #1 continue the current medical regimen #2 discharged home in the next 24 hours.
--- NOTE | 2020-04-24 09:59 | P.PN ---
Subjective Progress Note Date: 04/24/20 Principal diagnosis: Symptomatic coronary artery disease with left main disease, unstable angina. 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 POD #4 off-pump coronary artery bypass grafting 3 with the left internal mammary artery to left anterior descending artery, greater saphenous vein grafts to the second obtuse marginal and first diagonal branches, endovascular vein harvest of the left greater saphenous vein from below the knee to the groin level, and intraoperative transesophageal echocardiogram performed by anesthesia. Postoperative acute blood loss anemia, expected given patient's preoperative chronic anemia The patient is currently sitting up in a recliner on the cardiac stepdown unit in no acute distress. She states postsurgical pain is controlled on current medication regimen. Denies shortness of breath. Actively using incentive spirometer and achieving 1000 mL. She remains in normal sinus rhythm and hemody namically stable. Patient has ambulated in the hallway without difficulty. Received first post op shower yesterday. No new complaints Objective - Vital Signs Vital signs: Vital Signs Temp 97.9 F 04/24/20 08:00 Pulse 80 04/24/20 08:25 Resp 16 04/24/20 08:25 BP 134/62 04/24/20 08:00 Pulse Ox 97 04/24/20 08:00 Intake & Output 04/23/20 04/24/20 04/24/20 18:59 06:59 18:59 Intake Total 960 240 Output Total 400 500 Balance 560 -500 240 Weight 80.1 kg Intake: Oral 960 240 Output: Urine 400 500 Other: Voiding Method Toilet Toilet Toilet # Voids 2 21 # Bowel Movements 1 ABP, PAP, CO, CI - Last Documented Arterial Blood Pressure 99/64 Pulmonary Artery Pressure 28/12 Cardiac Output 8.1 Cardiac Index 4.5 - Constitutional General appearance: Present: cooperative, no acute distress - Respiratory Details: Lungs sounds diminished in the bases bilaterally. Respirations even, nonlabored. Currently on room air with oxygen saturation 97%. Able to achieve 1000 mL on her incentive spirometry. Strong cough. - Cardiovascular Details: S1, S2 present. Regular rate and rhythm, sinus rhythm on telemetry with rate in the 80s. Sternum stable. Palpable peripheral pulses bilaterally. No edema pr esent. No calf pain or tenderness noted. Heart hugger in place with patient demonstrating appropriate use. Antiembolism stockings, SCDs present. - Gastrointestinal Gastrointestinal Comment(s): Abdomen soft, nontender, nondistended. Active bowel sounds present 4 quadrants. Tolerating diet. Admits to small bowel movement yesterday - Genitourinary Genitourinary Comment(s): Continues to void clear yellow urine, output 200-300 mL at a time - Integumentary Integumentary Comment(s): Skin is warm and dry with evidence of good perfusion. Anterior chest incision well approximated and covered with dry intact dressing. Left lower extremity EVH site well approximated without redness or drainage - Neurologic Neurologic: Present: CNII-XII intact - Musculoskeletal Musculoskeletal: Present: gait normal, strength equal bilaterally - Psychiatric Psychiatric: Present: A&O x's 3, appropriate affect, intact judgment & insight - Allied health notes Allied health notes reviewed: nursing - Labs CBC & Chem 7: 04/24/20 06:31 04/24/20 06:31 Labs: Abnormal Lab Results - Last 24 Hours (Table) 04/23/20 04/23/20 04/23/20 Range/Units 12:07 16:36 20:20 RBC (3.80-5.40) m/uL Hgb (11.4-16.0) gm/dL Hct (34.0-46.0) % RDW (11.5-15.5) % Chloride (98-107) mmol/L BUN (7-17) mg/dL Glucose (74-99) mg/dL POC Glucose (mg/dL) 301 H 265 H 284 H (75-99) mg/dL 04/24/20 04/24/20 04/24/20 Range/Units 01:58 06:31 06:31 RBC 2.84 L (3.80-5.40) m/uL Hgb 8.0 L (11.4-16.0) gm/dL Hct 24.3 L (34.0-46.0) % RDW 19.9 H (11.5-15.5) % Chloride 110 H (98-107) mmol/L BUN 21 H (7-17) mg/dL Glucose 183 H (74-99) mg/dL POC Glucose (mg/dL) 205 H (75-99) mg/dL 04/24/20 Range/Units 06:51 RBC (3.80-5.40) m/uL Hgb (11.4-16.0) gm/dL Hct (34.0-46.0) % RDW (11.5-15.5) % Chloride (98-107) mmol/L BUN (7-17) mg/dL Glucose (74-99) mg/dL POC Glucose (mg/dL) 206 H (75-99) mg/dL - Imaging and Cardiology Chest x-ray: report reviewed, image reviewed Assessment and Plan Assessment: 1. Symptomatic coronary artery disease with left main disease, unstable angina, status post three-vessel off-pump CABG 2. History of coronary artery disease with stent placement to the LAD in 2010 3. Hypertension 4. Hyperlipidemia 5. Insulin-dependent diabetes mellitus with hemoglobin A1c 6.2% 6. Left internal carotid artery stenosis 50-79% 7. Stage III chronic kidney disease 8. Chronic anemia 9. Previous tobacco dependence with preoperative FEV1 87% of predicted 10. 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 Degenerative joint disease 12. History of benign brain tumor 20 years ago 13. Family history of coronary artery disease with son passing away at age 59 from myocardial infarction 14. Postoperative acute blood loss anemia, expected given patient's preoperative chronic anemia Plan: 1. Continue aspirins, statin, Plavix, beta hilary therapy. Will increase beta hilary therapy as tolerated. Continue losartan 2. Encourage incentive spirometry 10 times every hour while awake. Bronchodilators per pulmonology 3. Increase activity, ambulate as tolerated. PT/OT/cardiac rehab consulted 4. Will monitor daily labs and x-rays. Electrolyte replacement per protocol. No transfusion today. Will give lasix 20 mg IVP x 1 today 5. GI/DVT prophylaxis 6. Insulin management per primary care service. Patient needs better BS control 7. Pain control with current medication regimen. 8. Strict accurate intake and output. Daily weights 9. Discharge planning in progress. Anticipate discharge to home with home care tomorrow if BS are better controlled 10. More recommendations to follow as patient progresses Time with Patient: Greater than 30
[2020-04-24 11:47] LABS: Glucose,Whole Blood 266 mg/dL (75-99)
[2020-04-24] MEDS: LOSARTAN 25 MG TAB PO SCH (12:08)
--- NOTE | 2020-04-24 12:44 | PN ---
PROGRESS NOTE PULMONARY/CRITICAL CARE PROGRESS NOTE: DATE OF SERVICE: 04/24/2020 This is an 79-year-old female who is postop day number 4, status post off pump bypass grafting with WEBER to LAD bypass and saphenous vein graft to the obtuse marginal and diagonal branch. The patient had routine postoperative ventilator management. She was extubated five hours after leaving the operating room. She also suffers from diabetes mellitus, essential hypertension, and hyperlipidemia. Today, she is doing well. She states that she likely will be discharged home tomorrow. She is off O2. She is not receiving any IV fluids. Other than pain at the surgical site, she is doing relatively well. PHYSICAL EXAMINATION: Vital signs include a temperature 97.9, heart rate 80, respiratory rate 16, blood pressure 134/62, mean 86 and room-air saturation 97%. She appears in no acute distress. HEENT: Examination is grossly unremarkable. NECK: Supple. Full range of motion. No adenopathy. Neck veins are flat. CARDIOVASCULAR: Examination reveals a regular rhythm and rate. S1, S2 normal. LUNGS: Reveal a few scattered rhonchi. Breath sounds equal. No wheezes or crackles. ABDOMEN: Soft. Bowel sounds are heard. EXTREMITIES are intact. No cyanosis, clubbing, or edema. SKIN: Without rash. NEUROLOGIC: Examination is brief but nonfocal. White count 6.6, hemoglobin 8, hematocrit 24.3, platelet count 320,000. Sodium and potassium normal. Chloride 110, CO2 25, anion gap is 5. BUN and creatinine were 21 and 0.97. Microbiology is negative. A chest x-ray today shows post-surgical changes with small bilateral pleural effusions. There are some mild basilar atelectatic changes at the bases. Current medications are reviewed. These medications are appropriate status post open- heart surgery. ASSESSMENT: 1. Postop day #4 status post off pump bypass grafting, with WEBER to LAD bypass, as well as saphenous vein graft to obtuse marginal and diagonal branch. 2. Routine postoperative ventilator management with extubation five hours after leaving the operating room. 3. Diabetes mellitus. 4. Hypertension. 5. Hyperlipidemia. PLANS: Currently, the patient is doing well. She may be discharged tomorrow. We are not sure yet. She continues to deep breathe, cough, clear secretions and use the incentive spirometer q.1 hour. Other than that, her situation is reasonably stable. We will continue to follow. Prognosis is guarded. MMODL / IJN: [id number] /
[2020-04-24 16:54] LABS: Glucose,Whole Blood 223 mg/dL (75-99)
[2020-04-24] MEDS: KETOROLAC 15 MG/ML 1 ML VIAL IVP PRN (18:29)
[2020-04-24 21:02] LABS: Glucose,Whole Blood 203 mg/dL (75-99)
[2020-04-24] MEDS: ATORVASTATIN 80 MG TAB PO SCH (21:17)
[2020-04-24] MEDS: INSULIN DETEMIR (LEVEMIR) 100 UNIT/ML SYR SQ SCH (21:17)
--- NOTE | 2020-04-25 00:12 | P.PN ---
Subjective Progress Note Date: 04/24/20 Principal diagnosis: S/p CABG Patient is a 79-year-old female with a known history of hypertension, hyperlipidemia, diabetes type 2, osteoarthritis, coronary artery disease history of stent placement of the LAD presented due to shortness of breath and exertional chest pain. Patient underwent cardiac catheterization and found to have distal left main eccentric plague appearing to be in the range of 50% and there was critical disease involving the mid LAD. RCA showed intermediate lesion with 60% range. Circumflex was nondominant and was within the normal limits. Patient was eventually hospitalized and is being considered for coronary artery bypass surgery. Currently patient denies any complaints of chest pain or shortness of breath. No cough or sputum production. No fever no chills. Laboratory data showed WBC 6.0, hemoglobin 10.7 and platelets 213, RDW 19.4 Sodium 142, potassium 4.8, chloride 111, BUN 17 and creatinine 1.04 A1c 6.2 Hepatitis panel negative Chest x-ray showed no active cardiopulmonary disease. 04/20/2020 Patient is status post three-vessel coronary artery bypass graft. Currently on intubated and on mechanical ventilator. Chest x-ray showed small effusions with left basilar opacity likely postoperative atelectasis. NG tube is in place and chest tubes are present. Current laboratory data showed WBC 6.9, hemoglobin 8.4 and platelets 144. Creatinine 0.71 and INR 1.2 continued on GI and DVT prophylaxis. Pulmonary and CT surgery is on board. Blood sugar is fairly controlled. 04/21/2020 Patient is currently sitting in a chair comfortably. Awake alert and oriented x3. Patient was actually extubated 5 hours after surgery. Currently on oxygen via nasal cannula. Patient is on insulin drip for better sugar control. Chest x-ray showed left- sided chest tube in place with a new 6 mm left apical pneumothorax. Trace effusions and bibasilar atelectasis. Patient is participating in incentive spirometry. Laboratory data showed WBC 6.2, hemoglobin 8.6 and platelets 167 Potassium 4.0 and creatinine 0.84 04/22/2020 Patient is currently sitting in the chair comfortably. No acute distress. No complaints of shortness of breath. Chest soreness is much improved. Chest x- ray showed persistent tiny left apical pneumothorax. Chest tube is in place. Current level data reviewed. Patient is tolerating oral diet and is currently insulin drip and patient will be started back on home insulin regimen along with sliding scale. Patient is being transferred to medical floor today. 04/23/20 Patient is currently resting in the bed comfortably. No complaints of shortness of breath or chest pain. Blood pressure is slightly elevated this morning and metoprolol dose was increased. Patient is also having hyperglycemia today afternoon and preprandial insulin will be added.Patient does take oral hypoglycemics along with Levemir at home. Patient has been afebrile. No nausea vomiting or abdominal pain or diarrhea. No other acute overnight issues. Patient is currently in the general medical floor. 04/24/2019 Patient is currently sitting in the chair comfortably. Denied any complaints of chest pain or shortness breath. Blood pressure is controlled well. Patient was started preprandial insulin due to elevated blood sugars. Continue to titrate dose. Continue with insulin sliding scale and Levemir at night. Patient has been afebrile. No nausea vomiting or abdominal pain. Tolerating oral diet. Anticipate discharge in the next 24 hours with more clinical improvement. Current medications reviewed. Objective - Vital Signs Vital signs: Vital Signs Temp 98.8 F 04/24/20 16:00 Pulse 84 04/24/20 16:49 Resp 16 04/24/20 16:49 BP 143/66 04/24/20 16:00 Pulse Ox 96 04/24/20 16:00 Intake & Output 04/23/20 04/24/20 04/24/20 18:59 06:59 18:59 Intake Total 960 480 Output Total 114 298 7184 Balance 560 -500 -620 Weight 80.1 kg Intake: Oral 960 480 Output: Urine 596 032 4159 Other: Voiding Method Toilet Toilet Toilet # Voids 2 1 # Bowel Movements 1 ABP, PAP, CO, CI - Last Documented Arterial Blood Pressure 99/64 Pulmonary Artery Pressure 28/12 Cardiac Output 8.1 Cardiac Index 4.5 - Exam PHYSICAL EXAMINATION: Patient is lying in the bed comfortably, no acute distress, awake alert and oriented.. HEENT: Normocephalic. Neck is supple. Pupils reactive. Nostrils clear. Oral cavity is moist. Ears reveal no drainage. Neck reveals no JVD, carotid bruits, or thyromegaly. CHEST EXAMINATION: Trachea is central. Symmetrical expansion. Lung garcia clear to auscultation and percussion. CARDIAC: Normal S1, S2 with no gallops. No murmurs , Surgical site is intact. ABDOMEN: Soft. Bowel sounds normal. No organomegaly. No abdominal bruits. Extremities: reveal no edema. No clubbing or cyanosis Neurologically awake, alert, oriented x3 with well-coordinated movements. No focal deficits noted Skin: No rash or skin lesions. Psychiatric: Coperative. Nonsuicidal Musculoskeletal: No joint swelling or deformity. Normal range of motion. - Labs CBC & Chem 7: 04/24/20 06:31 04/24/20 06:31 Labs: Abnormal Lab Results - Last 24 Hours (Table) 04/23/20 04/24/20 04/24/20 Range/Units 20:20 01:58 06:31 RBC 2.84 L (3.80-5.40) m/uL Hgb 8.0 L (11.4-16.0) gm/dL Hct 24.3 L (34.0-46.0) % RDW 19.9 H (11.5-15.5) % Chloride (98-107) mmol/L BUN (7-17) mg/dL Glucose (74-99) mg/dL POC Glucose (mg/dL) 284 H 205 H (75-99) mg/dL 04/24/20 04/24/20 04/24/20 Range/Units 06:31 06:51 11:43 RBC (3.80-5.40) m/uL Hgb (11.4-16.0) gm/dL Hct (34.0-46.0) % RDW (11.5-15.5) % Chloride 110 H (98-107) mmol/L BUN 21 H (7-17) mg/dL Glucose 183 H (74-99) mg/dL POC Glucose (mg/dL) 206 H 266 H (75-99) mg/dL 04/24/20 Range/Units 16:52 RBC (3.80-5.40) m/uL Hgb (11.4-16.0) gm/dL Hct (34.0-46.0) % RDW (11.5-15.5) % Chloride (98-107) mmol/L BUN (7-17) mg/dL Glucose (74-99) mg/dL POC Glucose (mg/dL) 223 H (75-99) mg/dL Assessment and Plan Assessment: Coronary artery disease s/p triple vessel coronary artery bypass graft. Exertional chest pain and shortness of breath. Status post cardiac catheterization. Diabetes type 2 insulin-dependent with hyperglycemia Hypertension Hyperlipidemia Osteoarthritis GERD Varicose veins on the right leg Coronary artery disease with history of initial stent placement and 2010 Previous history of smoking GI and DVT prophylaxis. Plan: Patient will be continued telemetry monitoring and statins.. started back on asa and plavix. Continue with bronchodilators. Insulin sliding scale. Insulin drip will be discontinued and patient will be started on Levemir and preprandial insulin. CT surgery and cardiology and pulmonary is on board. Continue to follow closely. Time with Patient: Greater than 30
[2020-04-25 02:02] LABS: Glucose,Whole Blood 110 mg/dL (75-99)
[2020-04-25] MEDS: INSULIN ASPART (NovoLOG) 100 UNIT/ML VIAL SQ SCH ×5 (02:19→12:16)
[2020-04-25] MEDS: HEPARIN SODIUM,PORCINE 5,000 UNIT/ML 1 ML VIAL SQ SCH ×2 (03:30→11:01)
[2020-04-25 03:55] VITALS: RESP 18
[2020-04-25 06:57] LABS: Glucose,Whole Blood 162 mg/dL (75-99)
[2020-04-25] MEDS: PANTOPRAZOLE 40 MG TABLET PO SCH (07:01)
[2020-04-25] MEDS: FERROUS SULFATE 325 MG TAB PO SCH (07:01)
[2020-04-25] MEDS: ASCORBIC ACID 500 MG TAB PO SCH (07:01)
[2020-04-25] MEDS: IPRATROPIUM-ALBUTEROL 3 ML NEB INHALATION SCH ×2 (07:28→11:05)
--- NOTE | 2020-04-25 07:44 | XR ---
EXAMINATION TYPE: XR chest 2V DATE OF EXAM: 04/25/2020 COMPARISON: Chest x-ray from yesterday and older studies HISTORY: Post open cardiac surgery progress study. TECHNIQUE: Frontal and lateral views of the chest are obtained. FINDINGS: Overlying sternal wires and mediastinal clips redemonstrated. Patchy left left greater than right bibasilar opacities redemonstrated. Small pleural effusions redemonstrated seen best on latera l view. Cardiac silhouette size is stable and mildly enlarged with atherosclerotic aorta. Osseous str uctures are intact. No pneumothorax currently. IMPRESSION: Persistent small to tiny bilateral pleural effusions and left greater than right bibasila r atelectatic change. No significant change from one day earlier.
[2020-04-25 08:12] LABS: Anisocytosis Slight; HCT 23.9 % (34.0-46.0); HGB 7.7 gm/dL (11.4-16.0); Hypochromasia Slight; MCH 27.8 pg (25.0-35.0); MCHC 32.4 g/dL (31.0-37.0); MCV 85.7 fL (80.0-100.0); Mean Platelet Volume 7.5; Platelet Count 252 k/uL (150-450); RBC 2.79 m/uL (3.80-5.40); RDW 19.9 % (11.5-15.5); WBC 6.6 k/uL (3.8-10.6)
[2020-04-25] MEDS: polyethylene glycoL 3350 17 GM POWD.PACK PO SCH (08:16)
[2020-04-25] MEDS: KETOROLAC 15 MG/ML 1 ML VIAL IVP PRN (08:17)
[2020-04-25] MEDS: ASPIRIN 325 MG TAB PO SCH (08:18)
[2020-04-25] MEDS: METOPROLOL TARTRATE 50 MG TAB PO SCH (08:18)
[2020-04-25] MEDS: CLOPIDOGREL 75 MG TAB PO SCH (08:18)
[2020-04-25 08:32] LABS: Potassium 4.7 mmol/L (3.5-5.1)
--- NOTE | 2020-04-25 10:36 | P.PN ---
Subjective Progress Note Date: 04/25/20 Principal diagnosis: Symptomatic coronary artery disease with left main disease, unstable angina. 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 POD #5 off-pump coronary artery bypass grafting 3 with the left internal mammary artery to left anterior descending artery, greater saphenous vein grafts to the second obtuse marginal and first diagonal branches, endovascular vein harvest of the left greater saphenous vein from below the knee to the groin level, and intraoperative transesophageal echocardiogram performed by anesthesia. Postoperative acute blood loss anemia, expected given patient's preoperative chronic anemia The patient is currently sitting up in a recliner on the cardiac stepdown unit in no acute distress. She states postsurgical pain is controlled on current medication regimen. Denies shortness of breath. Actively using incentive spirometer and achieving 1000 mL. She remains in normal sinus rhythm and hemody namically stable. Patient has ambulated in the hallway without difficulty. Blood sugar still elevated but were better this morning. No new complaints Objective - Vital Signs Vital signs: Vital Signs Temp 98.0 F 04/25/20 08:00 Pulse 84 04/25/20 08:00 Resp 18 04/25/20 08:00 BP 135/65 04/25/20 08:00 Pulse Ox 97 04/25/20 08:00 Intake & Output 04/24/20 04/25/20 04/25/20 18:59 06:59 18:59 Intake Total 480 540 236 Output Total 1100 400 Balance -620 140 236 Weight 79.9 kg Intake: Oral 480 540 236 Output: Urine 1100 400 Other: Voiding Method Toilet Toilet # Voids 1 2 2 # Bowel Movements 1 ABP, PAP, CO, CI - Last Documented Arterial Blood Pressure 99/64 Pulmonary Artery Pressure 28/12 Cardiac Output 8.1 Cardiac Index 4.5 - Constitutional General appearance: Present: cooperative, no acute distress - Respiratory Details: Lungs sounds diminished in the bases bilaterally. Respirations even, nonlabored. Currently on room air with oxygen saturation 96%. Able to achieve 1000 mL on her incentive spirometry. Strong cough. - Cardiovascular Details: S1, S2 present. Regular rate and rhythm, sinus rhythm on telemetry with rate in the 60-70s. Sternum stable. Palpable peripheral pulses bilaterally. No edema present. No calf pain or tenderness noted. Heart hugger in place with patient demonstrating appropriate use. Antiembolism stockings, SCDs present. - Gastrointestinal Gastrointestinal Comment(s): Abdomen soft, nontender, nondistended. Active bowel sounds present 4 quadrants. Tolerating diet. Admits to small bowel movement yesterday - Genitourinary Genitourinary Comment(s): Continues to void clear yellow urine - Integumentary Integumentary Comment(s): Skin is warm and dry with evidence of good perfusion. Anterior chest incision well approximated and covered with dry intact dressing. Left lower extremity EVH site well approximated without redness or drainage - Neurologic Neurologic: Present: CNII-XII intact - Musculoskeletal Musculoskeletal: Present: gait normal, strength equal bilaterally - Psychiatric Psychiatric: Present: A&O x's 3, appropriate affect, intact judgment & insight - Allied health notes Allied health notes reviewed: nursing - Labs CBC & Chem 7: 04/25/20 06:38 04/25/20 06:38 Labs: Abnormal Lab Results - Last 24 Hours (Table) 04/24/20 04/24/20 04/24/20 Range/Units 11:43 16:52 20:55 RBC (3.80-5.40) m/uL Hgb (11.4-16.0) gm/dL Hct (34.0-46.0) % RDW (11.5-15.5) % BUN (7-17) mg/dL Creatinine (0.52-1.04) mg/dL Glucose (74-99) mg/dL POC Glucose (mg/dL) 266 H 223 H 203 H (75-99) mg/dL 04/25/20 04/25/20 04/25/20 Range/Units 02:00 06:38 06:38 RBC 2.79 L (3.80-5.40) m/uL Hgb 7.7 L (11.4-16.0) gm/dL Hct 23.9 L (34.0-46.0) % RDW 19.9 H (11.5-15.5) % BUN 24 H (7-17) mg/dL Creatinine 1.12 H (0.52-1.04) mg/dL Glucose 135 H (74-99) mg/dL POC Glucose (mg/dL) 110 H (75-99) mg/dL 04/25/20 Range/Units 06:56 RBC (3.80-5.40) m/uL Hgb (11.4-16.0) gm/dL Hct (34.0-46.0) % RDW (11.5-15.5) % BUN (7-17) mg/dL Creatinine (0.52-1.04) mg/dL Glucose (74-99) mg/dL POC Glucose (mg/dL) 162 H (75-99) mg/dL - Imaging and Cardiology Chest x-ray: report reviewed, image reviewed Assessment and Plan Assessment: 1. Symptomatic coronary artery disease with left main disease, unstable angina, status post three-vessel off-pump CABG 2. History of coronary artery disease with stent placement to the LAD in 2010 3. Hypertension 4. Hyperlipidemia 5. Insulin-dependent diabetes mellitus with hemoglobin A1c 6.2% 6. Left internal carotid artery stenosis 50-79% 7. Stage III chronic kidney disease 8. Chronic anemia 9. Previous tobacco dependence with preoperative FEV1 87% of predicted 10. 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 Degenerative joint disease 12. History of benign brain tumor 20 years ago 13. Family history of coronary artery disease with son passing away at age 59 from myocardial infarction 14. Postoperative acute blood loss anemia, expected given patient's preoperative chronic anemia Plan: 1. Continue aspirins, statin, Plavix, losartan, beta hilary therapy. 2. Encourage incentive spirometry 10 times every hour while awake. Bronchodilators per pulmonology 3. Increase activity, ambulate as tolerated. PT/OT/cardiac rehab consulted 4. Will monitor daily labs and x-rays. Electrolyte replacement per protocol. No transfusion today. 5. GI/DVT prophylaxis 6. Insulin management per primary care service. Patient needs better BS control 7. Pain control with current medication regimen. 8. Strict accurate intake and output. Daily weights 9. Discharge planning in progress. Anticipate discharge to home with home care today 10. More recommendations to follow as patient progresses Time with Patient: Greater than 30
[2020-04-25 11:00] VITALS: BP 145/68; TEMP 98.3
[2020-04-25] MEDS: LOSARTAN 25 MG TAB PO SCH (11:01)
[2020-04-25 11:08] VITALS: PULSE 84
[2020-04-25 11:53] LABS: Glucose,Whole Blood 161 mg/dL (75-99)
--- NOTE | 2020-04-25 12:37 | P.PN ---
Subjective 79-year-old female with a known history of hypertension, hyperlipidemia, diabetes type 2, osteoarthritis, coronary artery disease history of stent p lacement of the LAD presented due to shortness of breath and exertional chest pain. Patient underwent cardiac catheterization and found to have distal left main eccentric plague appearing to be in the range of 50% and there was critical disease involving the mid LAD. RCA showed intermediate lesion with 60% range. Circumflex was nondominant and was within the normal limits. Patient was eventually hospitalized and is being considered for coronary artery bypass surgery. Currently patient denies any complaints of chest pain or shortness of breath. No cough or sputum production. No fever no chills. Laboratory data showed WBC 6.0, hemoglobin 10.7 and platelets 213, RDW 19.4 Sodium 142, potassium 4.8, chloride 111, BUN 17 and creatinine 1.04 A1c 6.2 Hepatitis panel negative Chest x-ray showed no active cardiopulmonary disease. 04/20/2020 Patient is status post three-vessel coronary artery bypass graft. Currently on intubated and on mechanical ventilator. Chest x-ray showed small effusions with left basilar opacity likely postoperative atelectasis. NG tube is in place and chest tubes are present. Current laboratory data showed WBC 6.9, hemoglobin 8.4 and platelets 144. Creatinine 0.71 and INR 1.2 continued on GI and DVT prophylaxis. Pulmonary and CT surgery is on board. Blood sugar is fairly controlled. 04/21/2020 Patient is currently sitting in a chair comfortably. Awake alert and oriented x3. Patient was actually extubated 5 hours after surgery. Currently on oxygen via nasal cannula. Patient is on insulin drip for better sugar control. Chest x-ray showed left-si ded chest tube in place with a new 6 mm left apical pneumothorax. Trace effusions and bibasilar atelectasis. Patient is participating in incentive spirometry. Laboratory data showed WBC 6.2, hemoglobin 8.6 and platelets 167 Potassium 4.0 and creatinine 0.84 04/22/2020 Patient is currently sitting in the chair comfortably. No acute distress. No complaints of shortness of breath. Chest soreness is much improved. Chest x- ray showed persistent tiny left apical pneumothorax. Chest tube is in place. Current level data reviewed. Patient is tolerating oral diet and is currently insulin drip and patient will be started back on home insulin regimen along with sliding scale. Patient is being transferred to medical floor today. 04/23/20 Patient is currently resting in the bed comfortably. No complaints of shortness of breath or chest pain. Blood pressure is slightly elevated this morning and metoprolol dose was increased. Patient is also having hyperglycemia today afternoon and preprandial insulin will be added.Patient does take oral hypoglycemics along with Levemir at home. Patient has been afebrile. No nausea vomiting or abdominal pain or diarrhea. No other acute overnight issues. Patient is currently in the general medical floor. 04/24/2019 Patient is currently sitting in the chair comfortably. Denied any complaints of chest pain or shortness breath. Blood pressure is controlled well. Patient was started preprandial insulin due to elevated blood sugars. Continue to titrate dose. Continue with insulin sliding scale and Levemir at night. Patient has been afebrile. No nausea vomiting or abdominal pain. Tolerating oral diet. Anticipate discharge in the next 24 hours with more clinical improvement. 04/25/2020 Patient is being discharged today and the carotid thoracic surgeries requested final recommendations regarding her diabetic medications. Patient is on long- acting insulin as well as pre-meal insulin about 7 units with good blood sugar control. Patient was on metformin at home which is being held because of unstable creatinine at this time. Patient can continue her home dose of long- acting insulin in the form of glargine Lantus. Constitutional: Denied any fatigue denied any fever. Cardio vascular: denied any chest pain, palpitations Gastrointestinal denied any nausea vomiting Pulmonary: Denied any shortness of breath cough Neurologic denied any new focal deficits All inpatient medications were reviewed and appropriate changes in these m edications as dictated in the interval history and assessment and plan. Objective - Vital Signs Vital signs: Vital Signs Temp 98.3 F 04/25/20 10:58 Pulse 84 04/25/20 11:15 Resp 18 04/25/20 10:58 BP 145/68 04/25/20 10:58 Pulse Ox 96 04/25/20 10:58 Intake & Output 04/24/20 04/25/20 04/25/20 18:59 06:59 18:59 Intake Total 480 540 236 Output Total 1100 400 Balance -620 140 236 Weight 79.9 kg Intake: Oral 480 540 236 Output: Urine 1100 400 Other: Voiding Method Toilet Toilet # Voids 1 2 2 # Bowel Movements 1 ABP, PAP, CO, CI - Last Documented Arterial Blood Pressure 99/64 Pulmonary Artery Pressure 28/12 Cardiac Output 8.1 Cardiac Index 4.5 - Exam PHYSICAL EXAMINATION: GENERAL: The patient is alert and oriented x3, not in any acute distress. Well developed, well nourished. HEENT: Pupils are round and equally reacting to light. EOMI. No scleral icterus. No conjunctival pallor. Normocephalic, atraumatic. No pharyngeal erythema. No thyromegaly. CARDIOVASCULAR: S1 and S2 present. No murmurs, rubs, or gallops. PULMONARY: Chest is clear to auscultation, no wheezing or crackles. ABDOMEN: Soft, nontender, nondistended, normoactive bowel sounds. No palpable organomegaly. MUSCULOSKELETAL: No joint swelling or deformity. EXTREMITIES: No cyanosis, clubbing, or pedal edema. NEUROLOGICAL: Gross neurological examination did not reveal any focal deficits. SKIN: No rashes. - Labs CBC & Chem 7: 04/25/20 06:38 04/25/20 06:38 Labs: Abnormal Lab Results - Last 24 Hours (Table) 04/24/20 04/24/20 04/25/20 Range/Units 16:52 20:55 02:00 RBC (3.80-5.40) m/uL Hgb (11.4-16.0) gm/dL Hct (34.0-46.0) % RDW (11.5-15.5) % BUN (7-17) mg/dL Creatinine (0.52-1.04) mg/dL Glucose (74-99) mg/dL POC Glucose (mg/dL) 223 H 203 H 110 H (75-99) mg/dL 04/25/20 04/25/20 04/25/20 Range/Units 06:38 06:38 06:56 RBC 2.79 L (3.80-5.40) m/uL Hgb 7.7 L (11.4-16.0) gm/dL Hct 23.9 L (34.0-46.0) % RDW 19.9 H (11.5-15.5) % BUN 24 H (7-17) mg/dL Creatinine 1.12 H (0.52-1.04) mg/dL Glucose 135 H (74-99) mg/dL POC Glucose (mg/dL) 162 H (75-99) mg/dL 04/25/20 Range/Units 11:51 RBC (3.80-5.40) m/uL Hgb (11.4-16.0) gm/dL Hct (34.0-46.0) % RDW (11.5-15.5) % BUN (7-17) mg/dL Creatinine (0.52-1.04) mg/dL Glucose (74-99) mg/dL POC Glucose (mg/dL) 161 H (75-99) mg/dL Assessment and Plan Plan: Coronary artery disease s/p triple vessel coronary artery bypass graft. Exertional chest pain and shortness of breath. Status post cardiac catheterization. Diabetes type 2 insulin-dependent with hyperglycemia Hypertension Hyperlipidemia Osteoarthritis GERD Varicose veins on the right leg Coronary artery disease with history of initial stent placement and 2010 Previous history of smoking GI and DVT prophylaxis. Plan: Recommendations regarding discharge insulin as mentioned above
--- NOTE | 2020-04-25 13:40 | P.PN ---
Subjective This is a pleasant 79-year-old female who is status post coronary artery bypass grafting with WEBER to LAD, SVG to diagonal and SVG to OM. She is seen and examined resting comfortably in bed in no acute distress. She denies symptoms of chest pain, shortness of breath, dizziness or palpitations. Blood pressure 145/68 heart rate 84 afebrile maintaining oxygen saturation on room air. Laboratory data reviewed, WBC 6.6, hemoglobin 7.7, platelets 252, sodium 140, potassium 4.7, creatinine 1.12. GENERAL: Well-appearing, well-nourished and in no acute distress. NECK: Supple without JVD or thyromegaly. LUNGS: Breath sounds clear to auscultation bilaterally. Respiration equal and unlabored. No wheezes, rales or rhonchi. Diminished bilaterally. HEART: Regular rate and rhythm without murmurs, rubs or gallops. S1 and S2 heard. Heart hugger in place. EXTREMITIES: Normal range of motion, no edema. No clubbing or cyanosis. Peripheral pulses intact. ASSESSMENT Coronary artery disease status post bypass grafting Hypertension Dyslipidemia Chronic kidney disease Carotid artery stenosis PLAN Clinically stable. Encourage incentive spirometer use. Follow up with Dr. Burnett in the office in 1-week. Nurse Practitioner note has been reviewed, I agree with a documented findings and plan of care. Patient was seen and examined. Objective - Vital Signs Vital signs: Vital Signs Temp 98.3 F 04/25/20 10:58 Pulse 84 04/25/20 11:15 Resp 18 04/25/20 10:58 BP 145/68 04/25/20 10:58 Pulse Ox 96 04/25/20 10:58 Intake & Output 04/24/20 04/25/20 04/25/20 18:59 06:59 18:59 Intake Total 480 540 236 Output Total 1100 400 Balance -620 140 236 Weight 79.9 kg Intake: Oral 480 540 236 Output: Urine 1100 400 Other: Voiding Method Toilet Toilet # Voids 1 2 2 # Bowel Movements 1 ABP, PAP, CO, CI - Last Documented Arterial Blood Pressure 99/64 Pulmonary Artery Pressure 28/12 Cardiac Output 8.1 Cardiac Index 4.5 - Labs CBC & Chem 7: 04/25/20 06:38 04/25/20 06:38 Labs: Abnormal Lab Results - Last 24 Hours (Table) 04/24/20 04/24/20 04/25/20 Range/Units 16:52 20:55 02:00 RBC (3.80-5.40) m/uL Hgb (11.4-16.0) gm/dL Hct (34.0-46.0) % RDW (11.5-15.5) % BUN (7-17) mg/dL Creatinine (0.52-1.04) mg/dL Glucose (74-99) mg/dL POC Glucose (mg/dL) 223 H 203 H 110 H (75-99) mg/dL 04/25/20 04/25/20 04/25/20 Range/Units 06:38 06:38 06:56 RBC 2.79 L (3.80-5.40) m/uL Hgb 7.7 L (11.4-16.0) gm/dL Hct 23.9 L (34.0-46.0) % RDW 19.9 H (11.5-15.5) % BUN 24 H (7-17) mg/dL Creatinine 1.12 H (0.52-1.04) mg/dL Glucose 135 H (74-99) mg/dL POC Glucose (mg/dL) 162 H (75-99) mg/dL 04/25/20 Range/Units 11:51 RBC (3.80-5.40) m/uL Hgb (11.4-16.0) gm/dL Hct (34.0-46.0) % RDW (11.5-15.5) % BUN (7-17) mg/dL Creatinine (0.52-1.04) mg/dL Glucose (74-99) mg/dL POC Glucose (mg/dL) 161 H (75-99) mg/dL
--- NOTE | 2020-04-25 15:46 | P.DS ---
Providers Date of admission: 04/19/20 14:43 Expected date of discharge: 04/25/20 Attending physician: Harish Alvarez Consults: 04/18/20 12:50 Consult Physician Routine Consulting Provider: Jeffry Best Consult Reason/Comments: Pulmonary Management Do you want consulting provider notified?: Yes Consult Physician Routine Consulting Provider: Jose G Metzger Consult Reason/Comments: Medical/ Diabetes management Do you want consulting provider notified?: Yes Consult to Anesthesia Routine Consulting Provider: Anesthesia,Services Consult Reason/Comments: Cardiac Surgery Pre-Op 04/19/20 11:24 Consult Physician Routine Consulting Provider: Mayra Washington Consult Reason/Comments: history renal disease and anemia Do you want consulting provider notified?: Yes 04/20/20 12:17 Consult Physician Routine Consulting Provider: Girish Burnett Consult Reason/Comments: Director Business Integration Consult: post cardiac surgery Do you want consulting provider notified?: Already Contacted Primary care physician: Harish Alvarez [facility] Course: FINAL DIAGNOSIS: 1. Symptomatic coronary artery disease with left main disease, unstable angina 2. History of coronary artery disease with stent placement to the LAD in 2010 3. Hypertension 4. Hyperlipidemia 5. Insulin-dependent diabetes with hemoglobin A1c 6.2% 6. Left internal carotid artery stenosis 50-79% 7. Stage III chronic kidney disease 8. Chronic anemia 9. Previous tobacco dependence with preoperative FEV1 87% of predicted 10. 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 Benign brain tumor 20 years ago 12. Family history of coronary artery disease with son from myocardial infarction at 59 years old 13. Postoperative acute blood loss anemia, expected PRINCIPAL PROCEDURE: 1. Off-pump coronary artery bypass grafting 3 with the left internal mammary artery to the left anterior descending artery, greater saphenous vein grafts to the second obtuse marginal and first diagonal branches 2. Endovascular vein harvest of the left greater saphenous vein from below the knee to the groin level 3. Intraoperative transesophageal echocardiogram performed by anesthesia HISTORY OF PRESENT ILLNESS: This is a 79-year-old female patient who follows on an outpatient basis with Dr. Brady. Recently the patient had been experiencing shortness of breath, heart palpitations, and chest heaviness for the prior 2 months. She had a transthoracic echocardiogram in the cardiology office demonstrating normal left ventricular function with EF 60%, mild to moderate mitral valve regurgitation, mild mitral annular calcification, and mild tricuspid valve regurgitation. Due to her previous history and current symptoms she was recommended to undergo elective heart catheterization which demonstrated left main stenosis 50%, mid LAD stenosis 99%, and mid RCA stenosis 60%. Consultation was placed to Dr. Alvarez from cardiothoracic surgery. She was recommended to undergo coronary artery bypass surgery. The usual perioperative course was discussed in detail with the patient and her family, all risks and benefits were explained, all questions were answered, and consent was obtained to proceed with surgery. The patient was kept inpatient due to the nature of her disease process. HOSPITAL COURSE: The patient was brought to the preoperative area on 04/20/2020, prepared in the usual fashion, and subsequently taken to the operating room where Dr. Alvarez performed triple-vessel off-pump CABG. Upon completion of surgery the patient was transferred to the cardiovascular intensive care unit where she was recovered and monitored hemodynamically. She was extubated, all lines, tubes, and drips were discontinued when appropriate, and she was transferred to 3 S cardiac stepdown unit for further monitoring and rehabilitation. Her oxygen was titrated down, she continued to work with physical and occupational therapy, she was tolerating oral diet, her pain was controlled, and she was ready to be discharged to home with [facility] on postoperative day #5. She received written and verbal instruction regarding her medications, activity restrictions, signs and symptoms requiring physician notification, and follow-up appointments. COMPLICATIONS: The patient experienced no postoperative complications. Patient Condition at Discharge: Stable Plan - Discharge Summary Discharge Rx Participant: Yes New Discharge Prescriptions: New INSULIN ASPART (NovoLOG) [NovoLOG (formulary)] 8 unit SQ AC-TID #2 vial Aspirin 325 mg PO DAILY #30 tab Losartan [Cozaar] 25 mg PO DAILY@1200 #30 tab Ferrous Sulfate [Iron (65 MG Elemental)] 325 mg PO BID-W/MEALS #30 tab Furosemide [Lasix] 20 mg PO DAILY #3 tab Atorvastatin [Lipitor] 80 mg PO HS #30 tab Metoprolol Tartrate [Lopressor] 50 mg PO BID #60 tab polyethylene glycoL 3350 [Miralax] 17 gm PO DAILY #30 powd.pack Clopidogrel [Plavix] 75 mg PO DAILY #30 tab Pantoprazole [Protonix] 40 mg PO AC-BRKFST #30 tablet.dr Acetaminophen Tab [Tylenol] 650 mg PO Q4HR PRN tab PRN Reason: Fever And/ Or Pain Ascorbic Acid [Vitamin C] 500 mg PO BID-W/MEALS #30 tab Continue Ergocalciferol [Vitamin D2 (DRISDOL)] 50,000 unit PO FR Insulin Glargine,Hum.rec.anlog [Toujeo Solostar] 65 units SQ HS gemfibroziL [Lopid] 600 mg PO AC-BID Discontinued Metoprolol Tartrate [Lopressor] 50 mg PO BID Aspirin [Adult Low Dose Aspirin EC] 81 mg PO DAILY metFORMIN HCL 1,000 mg PO BID Atorvastatin [Lipitor] 40 mg PO DAILY Isosorbide 30 mg PO DAILY Losartan [Cozaar] 50 mg PO DAILY Discharge Medication List Ergocalciferol [Vitamin D2 (DRISDOL)] 50,000 unit PO FR 03/05/16 [History] Insulin Glargine,Hum.rec.anlog [Toujeo Solostar] 65 units SQ HS 03/05/16 [History] gemfibroziL [Lopid] 600 mg PO AC-BID 03/06/16 [History] Acetaminophen Tab [Tylenol] 650 mg PO Q4HR PRN tab 04/25/20 [Rx] Ascorbic Acid [Vitamin C] 500 mg PO BID-W/MEALS #30 tab 04/25/20 [Rx] Aspirin 325 mg PO DAILY #30 tab 04/25/20 [Rx] Atorvastatin [Lipitor] 80 mg PO HS #30 tab 04/25/20 [Rx] Clopidogrel [Plavix] 75 mg PO DAILY #30 tab 04/25/20 [Rx] Ferrous Sulfate [Iron (65 MG Elemental)] 325 mg PO BID-W/MEALS #30 tab 04/25/20 [Rx] Furosemide [Lasix] 20 mg PO DAILY #3 tab 04/25/20 [Rx] INSULIN ASPART (NovoLOG) [NovoLOG (formulary)] 8 unit SQ AC-TID #2 vial 04/25/20 [Rx] Losartan [Cozaar] 25 mg PO DAILY@1200 #30 tab 04/25/20 [Rx] Metoprolol Tartrate [Lopressor] 50 mg PO BID #60 tab 04/25/20 [Rx] Pantoprazole [Protonix] 40 mg PO AC-BRKFST #30 tablet.dr 04/25/20 [Rx] polyethylene glycoL 3350 [Miralax] 17 gm PO DAILY #30 powd.pack 04/25/20 [Rx] Follow up Appointment(s)/Referral(s): [facility] ,Cardiac [NON-STAFF] - 4 Weeks (You will be called in approximately 4 weeks for evaluation for cardiac rehab) Girish Burnett MD [STAFF PHYSICIAN] - 05/09/20 3:00 pm ([facility])) Luis Brady MD [STAFF PHYSICIAN] - 05/12/20 9:10 am Harish Alvarez MD [Primary Care Provider] - 05/19/20 9:30 am Yash Jones NPC [Nurse Practitioner] - 04/29/20 11:[address] [facility], [NON-STAFF] - Jeffry Best MD [STAFF PHYSICIAN] - 06/10/20 2:00 pm Ambulatory/Diagnostic Orders: Complete Blood Count w/diff [LAB.AMB] Time Frame: 3 Days, Location: None Selected Comprehensive Metabolic Panel [LAB.AMB] Time Frame: 3 Days, Location: None Selected Activity/Diet/Wound Care/Special Instructions: DISCHARGE INSTRUCTIONS: 1. No driving for 4 weeks, or until physician gives their ok. 2. The patient should sleep in their own bed, no medical bed needed. 3. Stairs are not an issue. If the bedroom is upstairs, it is advised that the patient go up at night and down in the morning for the first week. Go slowly, using handrail and take 1 step at a time. 4. CONSTANTINO hose are to be worn for 30 days or until physician discontinues. 5. Heart hugger is to be worn 100% of the time until physician discontinues.(except when showering) 6. No lifting, pushing, or pulling more than 10 pounds for 12 weeks. The physician will advise of any restriction changes. 7. The patient is expected to continue the prescribed walking program. 8. Continue pain control per as needed orders. 9. Continue with incentive spirometry and splinting/heart hugger until otherwise directed by the physician. 10. Must shower daily using liquid antibacterial soap and a separate white washcloth for each individual incision. 11. Routine sternal incision care. No powders, lotions, ointments on incisions. No dressings are necessary on incisions unless they are draining. Dermabond tape is to remain on sternal incision until surgeon follow-up. 12. Please call surgeon/CERTIFIED DIABETES EDUCATOR for temp greater than 101 F or purulent drainage from incisions. 13. All prescriptions given by surgeon for 30 days. Refills need to be filled through threader operator/primary care physician. 14. A Red armband has been placed on the patient. It should be worn for 30 days post surgery and will be removed by the cardiac surgeons. If an ER visit is necessary, please make sure the number on the Red armband is called. 15. You have been referred to and are expected to begin Cardiac Rehab in approximately 4-6 weeks. 16. You should check your blood sugar before meals and at bedtime, record blood sugars and bring log of blood sugars to follow-up appointments with Dr. Brady. HOME HEALTH SERVICES TO PROVIDE: RN SKILLED HOME CARE SERVICES FOR POST-OP SURGICAL PATIENTS WITH THE FOL LOWING: Coronary Artery Bypass Surgery (CABG), Mitral Valve Replacement/Repair ( MVR), Aortic Valve Replacement/Repair (AVR) RN TO CONTINUE EDUCATION FROM ``ROAD TO A HEALTH HEART PATIENT EDUCATION MANUAL (GIVEN TO PATIENT IN THE HOSPITAL) MEDICATION RECONCILIATION WITH EDUCATION NEEDED ON FIRST HOME VISIT EMPHASIZE IMPORTANCE OF WEARING BREAST SUPPORT/HEART HUGGER ENCOURAGE USE OF INCENTIVE SPIROMETER 10 X EVERY HOUR WHILE AWAKE ENCOURAGE UTILIZATION OF LOWER EXTREMITY COMPRESSION STOCKINGS/CONSTANTINO HOSE and ELEVATE LEGS ABOVE LEVEL OF HEART WHILE AT REST. ENCOURAGE AMBULATION 3-5x/day INCREASING TOLERATES, WHILE AVOIDING EXTREMES IN TEMPERATURE FREQUENCY: RN TO OPEN THE PATIENT WITHIN 24 HOURS OF DISCHARGE FROM THE HOSPITAL WITH TELEHEALTH INSTALLED AT [facility] TO VISIT 2-3 X A WEEK FOR 4 WEEKS ESTABLISHED BY PATIENT NEEDS. LABORATORY: CBC, CMP TO BE DRAWN ON THE THIRD DAY HOME, (RAN STAT) FAX RESULTS TO [phone]. TELEHEALTH PARAMETERS: WEIGHT: NOTIFY MD OF WEIGHT GAIN OF 2 LBS IN 24 HOURS OR 5 LBS IN ONE WEEK HR: NOTIFY MD OF HR <55 BPM OR HR>100 BPM BP: NOTIFY MD IF BP <90/55 OR BP>140/100 O2 SAT: NOTIFY MD IF PO2<93% ON ROOM AIR SEND TELEHEALTH REPORT TO ROLLER COASTER DESIGNER AND CARDIOVASCULAR SURGEON THE FIRST WEEK OF CARE AND THEN BI-WEEKLY. PLEASE ADDITIONALLY COMMUNICATE ANY ABNORMALS AND NEW FINDINGS TO THE SURGEONS OFFICE. For any questions or concerns please call helmet binder Alanna @ or Massimo @ Discharge Disposition: HOME WITH HOME HEALTH SERVICES
== END 2020-04-25 15:04 | disposition home health service (06) | DRG 234 ==
LOC: CATHCVL 06:40 → 3SCARD 13:32 → CATHCVL 04-19 14:43 → 3SCARD 04-19 14:43 → 2SICU 04-20 06:25 → 3SCARD 04-22 21:49
PROVIDERS: ADMIT Thoracic Surgery (Cardiothoracic Vascular Surgery); ATTEND Thoracic Surgery (Cardiothoracic Vascular Surgery)
PROC: B2111ZZ Fluoroscopy of Multiple Coronary Arteries using Low Osmolar Contrast (ICD-10-PCS; 2020-04-18)
PROC: 4A023N7 Measurement of Cardiac Sampling and Pressure, Left Heart, Percutaneous Approach (ICD-10-PCS; 2020-04-18)
PROC: 02HQ32Z Insertion of Monitoring Device into Right Pulmonary Artery, Percutaneous Approach (ICD-10-PCS; 2020-04-20)
PROC: 4A133B3 Monitoring of Arterial Pressure, Pulmonary, Percutaneous Approach (ICD-10-PCS; 2020-04-20)
PROC: 4A1239Z Monitoring of Cardiac Output, Percutaneous Approach (ICD-10-PCS; 2020-04-20)
PROC: 06BQ4ZZ Excision of Left Saphenous Vein, Percutaneous Endoscopic Approach (ICD-10-PCS; principal; 2020-04-20 08:00)
PROC: 02100Z9 Bypass Coronary Artery, One Artery from Left Internal Mammary, Open Approach (ICD-10-PCS; principal; 2020-04-20 08:00)
PROC: 021109W Bypass Coronary Artery, Two Arteries from Aorta with Autologous Venous Tissue, Open Approach (ICD-10-PCS; principal; 2020-04-20 08:00)
PROC: B246ZZ4 Ultrasonography of Right and Left Heart, Transesophageal (ICD-10-PCS; principal; 2020-04-20 08:00)
PROC: B54DZZZ Ultrasonography of Bilateral Lower Extremity Veins (ICD-10-PCS; 2020-04-21)
PROC: B44HZZZ Ultrasonography of Bilateral Lower Extremity Arteries (ICD-10-PCS; 2020-04-21)
DX: I25.110 Atherosclerotic heart disease of native coronary artery with unstable angina pectoris (principal); D62 Acute posthemorrhagic anemia; J93.83 Other pneumothorax; J98.11 Atelectasis; E11.22 Type 2 diabetes mellitus with diabetic chronic kidney disease; E11.65 Type 2 diabetes mellitus with hyperglycemia; E78.5 Hyperlipidemia, unspecified; I12.9 Hypertensive chronic kidney disease with stage 1 through stage 4 chronic kidney disease, or unspecified chronic kidney disease; I08.1 Rheumatic disorders of both mitral and tricuspid valves; I65.22 Occlusion and stenosis of left carotid artery; I83.91 Asymptomatic varicose veins of right lower extremity; K21.9 Gastro-esophageal reflux disease without esophagitis; K59.00 Constipation, unspecified; M19.90 Unspecified osteoarthritis, unspecified site; N18.30 Chronic kidney disease, stage 3 unspecified; Z20.828 Contact with and (suspected) exposure to other viral communicable diseases; Z79.4 Long term (current) use of insulin; Z79.82 Long term (current) use of aspirin; Z79.899 Other long term (current) drug therapy; Z80.1 Family history of malignant neoplasm of trachea, bronchus and lung; Z80.8 Family history of malignant neoplasm of other organs or systems; Z82.49 Family history of ischemic heart disease and other diseases of the circulatory system; Z85.828 Personal history of other malignant neoplasm of skin; Z86.011 Personal history of benign neoplasm of the brain; Z87.891 Personal history of nicotine dependence; Z95.5 Presence of coronary angioplasty implant and graft
CPT/HCPCS: 71045; 71046; 80048; 80053; 80061; 80074; 81001; 82330; 82805; 83036; 83540; 83550; 83735; 84443; 85025; 85027; 85347; 85520; 85610; 85730; 86850; 86891; 86900; 86901; 86920; 87070; 87635; 93454; 93880; 93922; 93970; 94002; 94640

== ENCOUNTER → 2021-10-05 | Outpatient (CLI) | payer MEDICARE, BC ==
--- NOTE | 2021-10-05 12:20 | US ---
EXAMINATION TYPE: US kidneys/renal and bladder DATE OF EXAM: 10/05/2021 COMPARISON: NONE CLINICAL HISTORY: 81-year-old female N18.31 Chronic Kidney disease Stage 3A. TECHNIQUE: Multiple sonographic images of the kidneys and bladder are obtained. FINDINGS: EXAM MEASUREMENTS: Right Kidney: 10.7 x 3.8 x 5.5 cm Left Kidney: 11.5 x 4.7 x 4.5 cm Right Kidney: No hydronephrosis. Left Kidney: Mild left-sided pelvocaliectasis. Bladder: Limited assessment. Not fully distended, situated low IMPRESSION: Mild left-sided pelvicaliectasis. Probably transient. Short interval follow-up to exclude early hydro nephrosis.
== END | disposition home or self-care (01) ==
LOC: RADUSWWP 08:54
PROVIDERS: ATTEND Internal Medicine Nephrology
DX: N18.31 Chronic kidney disease, stage 3a (principal)
CPT/HCPCS: 76770

== ENCOUNTER → 2022-04-05 | Outpatient (CLI) | payer MEDICARE, BC ==
--- NOTE | 2022-04-05 13:13 | US ---
EXAMINATION TYPE: US kidneys/renal and bladder DATE OF EXAM: 04/05/2022 COMPARISON: CLINICAL HISTORY: N18.31 CHRONIC KIDNEY DISEASE, STAGE 3A. Follow up renal disease. EXAM MEASUREMENTS: Right Kidney: 10.4 x 4.3 x 4.6 cm Left Kidney: 11.4 x 4.3 x 5.6 cm Right Kidney: No hydronephrosis or masses seen Left Kidney: No masses or hydronephrosis. Bladder: anechoic Bilateral Jets seen IMPRESSION: 1. Unremarkable renal ultrasound
== END | disposition home or self-care (01) ==
LOC: RADUSWWP 12:11
PROVIDERS: ATTEND Internal Medicine Nephrology
DX: N18.31 Chronic kidney disease, stage 3a (principal)
CPT/HCPCS: 76770

== ENCOUNTER 2023-04-08 05:45 | Day surgery (SDC) | payer MEDICARE, BC ==
[2023-04-08] MEDS ORDERED: NITROGLYCERIN SL TABS 0.4 MG TAB SUBLINGUAL PRN ×2 (05:48→09:02)
[2023-04-08] MEDS ORDERED: ALPRAZolam 0.25 MG TAB PO PRN (05:48)
[2023-04-08] MEDS ORDERED: ASPIRIN 325 MG TAB PO STA (05:48)
[2023-04-08] MEDS ORDERED: ALPRAZolam 0.5 MG TAB PO PRN (05:48)
[2023-04-08 06:32] LABS: Glucose,Whole Blood 122 mg/dL (70-110)
[2023-04-08] MEDS: SODIUM CHLORIDE 0.9% 1,000 ML in EMPTY BAG 1 BAG IV SCH ×2 (06:33→21:47)
[2023-04-08 06:35] LABS: Basophils # (A) 0.1 k/uL (0-0.2); Basophils % (A) 1 %; Eosinophils # (A) 0.1 k/uL (0-0.7); Eosinophils % (A) 2 %; HCT 36.8 % (34.0-46.0); Hypochromasia Slight; Lymphocytes % (A) 30 %; MCH 27.6 pg (25.0-35.0); MCHC 32.7 g/dL (31.0-37.0); MCV 84.4 fL (80.0-100.0); Mean Platelet Volume 7.9; Monocytes # (A) 0.3 k/uL (0-1.0); Monocytes % (A) 5 %; Neutrophils # (A) 4.1 k/uL (1.3-7.7); Neutrophils % (A) 61 %; Platelet Count 203 k/uL (150-450); RBC 4.36 m/uL (3.80-5.40); RDW 15.7 % (11.5-15.5); WBC 6.6 k/uL (3.8-10.6)
[2023-04-08 06:47] LABS: African American GFR (CKD) 53 (>60 ml/min/1.73 sqM); Anion Gap 10 mmol/L; Blood Urea Nitrogen 22 mg/dL (7-17); Calcium 9.2 mg/dL (8.4-10.2); Carbon Dioxide 26 mmol/L (22-30); Chloride 106 mmol/L (98-107); Glucose 122 mg/dL (74-99); Non-African American GFR(CKD) 46 (>60 ml/min/1.73 sqM); Sodium 142 mmol/L (137-145)
[2023-04-08] MEDS ORDERED: VERAPAMIL 2.5 MG/ML 2 ML AMP ONE (07:17)
[2023-04-08] MEDS ORDERED: LIDOCAINE 1% INJ 10MG/ML (20 ML MDV) ONE (07:17)
[2023-04-08] MEDS ORDERED: HEPARIN SODIUM 1,000 UN/ML (10ML VL) ONE (07:29)
[2023-04-08] MEDS ORDERED: MIDAZOLAM 2 MG/2 ML VIAL IVP ONE ×2 (07:45→08:07)
[2023-04-08] MEDS ORDERED: LIDOCAINE 1% INJ 10MG/ML (20 ML MDV) SQ ONE (07:48)
[2023-04-08] MEDS ORDERED: fentaNYL (PF) 50 MCG/ML 2 ML AMP ONE (08:03)
[2023-04-08] MEDS: HEPARIN SODIUM 1,000 UN/ML (10ML VL) IV ONE ×2 (08:09→08:21)
[2023-04-08] MEDS ORDERED: fentaNYL (PF) 50 MCG/1 ML VIAL IVP ONE ×2 (08:09)
[2023-04-08] MEDS ORDERED: HYDROmorphone 0.5 MG/0.5 ML SYRINGE IVP ONE (08:27)
[2023-04-08] MEDS ORDERED: CLOPIDOGREL 75 MG TAB ONE (08:46)
[2023-04-08] MEDS ORDERED: CLOPIDOGREL 75 MG TAB PO ONE (08:50)
[2023-04-08] MEDS ORDERED: IOPAMIDOL-370 100ML BTL INJ ONE (08:55)
[2023-04-08] MEDS ORDERED: ACETAMINOPHEN TAB 325 MG TAB PO PRN (09:01)
[2023-04-08] MEDS ORDERED: MELATONIN 5 MG TABLET PO PRN (09:01)
[2023-04-08] MEDS ORDERED: ZOLPIDEM 5 MG TAB PO PRN (09:02)
[2023-04-08] MEDS ORDERED: RX INFO: IV CONTRAST WAS GIVEN 1 EACH MISC MISCELLANE PRN (09:02)
[2023-04-08] MEDS ORDERED: ATROPINE SULFATE 0.1 MG/ML 10ML SYRINGE IV PRN (09:02)
[2023-04-08] MEDS ORDERED: MAG HYDROX/AL HYDROX/SIMETH 30 ML CUP PO PRN (09:02)
--- NOTE | 2023-04-08 09:11 | P.PCN ---
Date of Procedure: 04/08/23 Operative Findings: CARDIAC CATHETERIZATION AND PERCUTANEOUS CORONARY INTERVENTION PERFORMING PHYSICIAN: Girish Burnett MD, [facility] PROCEDURE PERFORMED: 1. Selective right and left coronary angiogram 2. WEBER to LAD angiogram, SVG to diagonal angiogram, and SVG to OM angiogram 3. Successful stenting of mid RCA using 3.5 x 15 mm Xience OLAMIDE with an excellent angiographic results 4. Adjunctive use of lithotripsy balloon and intravascular imaging 5. Left heart catheterization 6. Ultrasound-guided access of the right common femoral artery and right common femoral artery angiogram INDICATION: This is an 82-year-old female patient was coronary artery disease status post CABG with WEBER to LAD and SVG to diagonal SVG to OM was seen in the office recently for symptoms of shortness of breath. She underwent myocardial perfusion imaging stress is and that came in to be of normal showing an inferior ischemia. In the light of.heart catheterization wasn't 5 COMPLICATION: None APPROACH: Right common femoral artery LEVEL OF SEDATION: Moderate with the sedation time off 70 minutes PROCEDURE DESCRIPTION: After obtaining an informed consent the patient was brought to the cardiac cath laboratory technician. The right common femoral artery was cannulated using puncture technique under ultrasound guidance; puncture wire passed easily then I placed a 6-Chilean sheath at the right common femoral artery. Selective left and right coronary angiogram performed using JL4 and JR4 catheters. WEBER to LAD angiogram and SVG to diagonal and SVG to OM angiogram was performed using the JR4 catheter. After that I did left heart catheterization using 6-Chilean pigtail catheter after that I did intervene on the right coronary artery. The procedure was completed was no complication SELECTIVE CORONARY ANGIOGRAM: The right coronary artery: Large caliber vessel and a dominant vessel with a lesion in the midportion calcified appears to be in the range of 99.9%. Left main: Has a distal lesion appears to be in the range of 50-60% at least The left circumflex: The ostial left circumflex is involved in the lesion from the left main. The circumflex is a large caliber vessel nondominant vessel and gives rises into an OM which has competitive flow was seen from the SVG The left anterior descending artery: The LAD is a large caliber vessel. The LAD in the midportion has a tight lesion. Competitive flow was seen from the WEBER Coronary bypasses angiogram: The WEBER to LAD is patent The SVG to diagonal and OM is patent with the proximal disease appears to be in the range of 40-50%. The graft into the diagonal and OM is a Y graft. HEMODYNAMICS: The LVEDP was 5 mmHg was no significant gradient across aortic valve PCI OF THE RCA: Anticoagulation was initiated using heparin with continuous ACT monitoring. I did engage the RCA using an a.l. 0.75 guiding catheter. I was able to cross the lesion using a whisper wire with a backup support of microcatheter. Subsequently the microcatheter was pulled out. After that I did intravascular ultrasound of the RCA but I was unable to cross the lesion but the proximal RCA just proximal to the lesion appears to be extremely calcified with extreme thick superficial calcium and calcium arc about 270. I decided to do lithotripsy balloon but because the balloon would not cross the lesion I predilated using initially 2 mm balloon but even the 2 mm see my compliant balloon would not cross and I had to use guide liner to get the balloon and. After that I did balloon angioplasty using 2.0 x 12 mm see my compliant balloon and subsequently 2.5 x 12 mm noncompliant balloon. After that I was able to get the lithotripsy balloon with a backup support of guide liner. I did balloon angioplasty using the lithotripsy balloon before I deployed 3.5 x 15 mm stent where the stent was positioned under fluoroscopy guidance and deployed under fluoroscopy guidance. Postdilatation was performed using 3.5 mm noncompliant balloon. Final angiogram showed good angiographic results. I did postdilated patient using 3.5 mm noncompliant balloon because intravascular ultrasound was performed and showed that the mid area of the stent was not quite expanded. The final angiogram showed a great angiographic results of the procedure was completed was no complication CONCLUSION: Severe triple-vessel CAD. Patent WEBER to LAD and patent SVG to diagonal and patent SVG to OM Critical disease involving unprotected mid RCA which is heavily calcified. I did perform successful stenting of the RCA as described above POSTPROCEDURE MANAGEMENT: 1. Dual antiplatelet therapy using aspirin and Plavix for at least 6 month 2. Aggressive cholesterol control 3. Follow-up with the patient
[2023-04-08] MEDS ORDERED: ERGOCALCIFEROL 1,250 MCG (50,000 IU) CAPSULE PO SCH (09:15)
[2023-04-08] MEDS ORDERED: SODIUM CHLORIDE 0.9% 1,000 ML in EMPTY BAG 1 BAG IV SCH (09:15)
[2023-04-08 11:16] LABS: Glucose,Whole Blood 154 mg/dL (70-110)
[2023-04-08 12:17] VITALS: BMI 28.6
[2023-04-08] MEDS: PENICILLIN V POTASSIUM 250 MG TAB PO SCH ×3 (13:48→22:03)
[2023-04-08 16:39] LABS: Glucose,Whole Blood 206 mg/dL (70-110)
[2023-04-08 19:53] VITALS: RESP 18
[2023-04-08 20:06] LABS: Glucose,Whole Blood 234 mg/dL (70-110)
[2023-04-08] MEDS: METOPROLOL TARTRATE 50 MG TAB PO SCH (20:30)
[2023-04-08] MEDS ORDERED: LOSARTAN 25 MG TAB PO SCH (21:00)
[2023-04-08] MEDS ORDERED: INSULIN DETEMIR (LEVEMIR) 100 UNIT/ML SYR SQ SCH (21:00)
[2023-04-08] MEDS ORDERED: ATORVASTATIN 80 MG TAB PO SCH (21:00)
[2023-04-09 06:05] LABS: Glucose,Whole Blood 95 mg/dL (70-110)
[2023-04-09 07:09] LABS: Basophils % (A) 1 %; Eosinophils # (A) 0.1 k/uL (0-0.7); Eosinophils % (A) 2 %; HGB 10.6 gm/dL (11.4-16.0); Hypochromasia Slight; Lymphocytes # (A) 1.3 k/uL (1.0-4.8); Lymphocytes % (A) 22 %; MCH 27.7 pg (25.0-35.0); Mean Platelet Volume 7.5; Monocytes # (A) 0.3 k/uL (0-1.0); Monocytes % (A) 5 %; Neutrophils # (A) 4.1 k/uL (1.3-7.7); Neutrophils % (A) 69 %; Platelet Count 163 k/uL (150-450); RBC 3.81 m/uL (3.80-5.40); RDW 15.8 % (11.5-15.5)
[2023-04-09] MEDS: METOPROLOL TARTRATE 50 MG TAB PO SCH (08:05)
[2023-04-09 08:19] VITALS: BP 163/70; PULSE 60; TEMP 97.8
[2023-04-09 08:50] LABS: African American GFR (CKD) 54 (>60 ml/min/1.73 sqM); Anion Gap 11 mmol/L; Blood Urea Nitrogen 15 mg/dL (7-17); Calcium 8.9 mg/dL (8.4-10.2); Carbon Dioxide 25 mmol/L (22-30); Chloride 108 mmol/L (98-107); Glucose 95 mg/dL (74-99); Non-African American GFR(CKD) 47 (>60 ml/min/1.73 sqM); Potassium 4.4 mmol/L (3.5-5.1); Sodium 144 mmol/L (137-145)
[2023-04-09] MEDS ORDERED: ASPIRIN 81 MG PO SCH (09:00)
[2023-04-09] MEDS ORDERED: CLOPIDOGREL 75 MG TAB PO SCH (09:00)
[2023-04-09] MEDS ORDERED: amLODIPine 5 MG TAB PO SCH (09:00)
--- NOTE | 2023-04-09 09:30 | P.DS ---
Providers Attending physician: Girish Burnett Consults: 04/08/23 09:02 Consult Physician Routine Consulting Provider: [facility] Consult Reason/Comments: Post Interventional patient Do you want consulting provider notified?: Already Contacted Primary care physician: Luis Brady [facility] Course: The patient is a pleasant 82-year-old female patient was underwent yesterday a heart catheterization and stenting of critical right coronary artery from a groin approach She was seen and evaluated this morning and she is asymptomatic and hemodynamically stable. The patient is going to be discharged home on dual antiplatelet therapy. The right groin is soft and nontender was no bruises. Plan - Discharge Summary Discharge Rx Participant: No New Discharge Prescriptions: Continue Ergocalciferol [Vitamin D2 (DRISDOL)] 50,000 unit PO Q14D Insulin Glargine,Hum.rec.anlog [Todarbyo Solostjacquelyn] 54 units SQ HS Atorvastatin [Lipitor] 80 mg PO HS #30 tab Metoprolol Tartrate [Lopressor] 50 mg PO BID #60 tab Acetaminophen Tab [Tylenol] 650 mg PO Q4HR PRN tab PRN Reason: Fever And/ Or Pain Aspirin 1 tab PO QAM Penicillin V Potassium [Pen Vee K] 500 mg PO QID Melatonin 5 mg PO HS PRN PRN Reason: Insomnia Losartan [Cozaar] 25 mg PO HS Clopidogrel [Plavix] 75 mg PO QAM amLODIPine [Norvasc] 5 mg PO QAM Discharge Medication List Ergocalciferol [Vitamin D2 (DRISDOL)] 50,000 unit PO Q14D 03/05/16 [History] Insulin Glargine,Hum.rec.anlog [Toujeo Solostar] 54 units SQ HS 03/05/16 [History] Acetaminophen Tab [Tylenol] 650 mg PO Q4HR PRN tab 04/25/20 [Rx] Atorvastatin [Lipitor] 80 mg PO HS #30 tab 04/25/20 [Rx] Metoprolol Tartrate [Lopressor] 50 mg PO BID #60 tab 04/25/20 [Rx] Melatonin 5 mg PO HS PRN 02/22/21 [History] Aspirin 1 tab PO QAM 03/20/21 [History] Losartan [Cozaar] 25 mg PO HS 03/20/21 [History] Clopidogrel [Plavix] 75 mg PO QAM 04/03/23 [History] Penicillin V Potassium [Pen Vee K] 500 mg PO QID 04/03/23 [History] amLODIPine [Norvasc] 5 mg PO QAM 04/03/23 [History] Follow up Appointment(s)/Referral(s): Girish Burnett MD [STAFF PHYSICIAN] - 1 Week
[2023-04-09] MEDS: PENICILLIN V POTASSIUM 250 MG TAB PO SCH (10:22)
[2023-04-09] MEDS: SODIUM CHLORIDE 0.9% 1,000 ML in EMPTY BAG 1 BAG IV SCH (10:22)
== END 2023-04-09 10:32 | disposition home or self-care (01) ==
LOC: CATHCVL 05:45 → 3SCARD 09:11 → CATHCVL 04-09 10:32
PROVIDERS: ATTEND Internal Medicine Interventional Cardiology
DX: I25.10 Atherosclerotic heart disease of native coronary artery without angina pectoris (principal); I10 Essential (primary) hypertension; E78.5 Hyperlipidemia, unspecified; E11.9 Type 2 diabetes mellitus without complications; I65.23 Occlusion and stenosis of bilateral carotid arteries; Z79.82 Long term (current) use of aspirin; Z79.84 Long term (current) use of oral hypoglycemic drugs; Z79.02 Long term (current) use of antithrombotics/antiplatelets; Z95.5 Presence of coronary angioplasty implant and graft; Z79.899 Other long term (current) drug therapy; Z95.1 Presence of aortocoronary bypass graft
CPT/HCPCS: 92978; 93459; 0715T; 76937; 80048 ×2; 85025 ×2; C9600; C1760; C1769 ×4; C1887 ×2; C1894 ×2; C1725 ×3; C1753; C1874; C1761; C1751; J2250; J2001; J1644; J1170; Q9967; J3010

== ENCOUNTER 2024-10-24 08:39 | Emergency (ER) | payer MEDICARE, BC ==
--- NOTE | 2024-10-24 09:16 | ED ---
General Adult HPI - General Chief complaint: Syncope Stated complaint: Syncope, fall, head injury Time Seen by Provider: 10/24/24 08:43 Source: patient, RN notes reviewed, old records reviewed Mode of arrival: ambulatory Limitations: no limitations - History of Present Illness Initial comments: 84-year-old female presenting for evaluation of syncopal episode with head injury. Patient is on aspirin and Plavix. Patient states that she had passed out, fallen at home. No preceding symptoms. She was unconscious but uncertain how long. There was a head injury. Patient denies extremity injury. She has a very minor headache. GCS 15. Denies chest pain. She had not eaten breakfast prior to arrival. No vomiting. - Related Data Home Medications Medication Instructions Recorded Confirmed Ergocalciferol [Vitamin D2 50,000 unit PO Q14D 03/05/16 04/08/23 (DRISDOL)] Insulin Glargine,Hum.rec.anlog 54 units SQ HS 03/05/16 04/08/23 [Toujeo Solostar] Melatonin 5 mg PO HS PRN 02/22/21 04/08/23 Aspirin 1 tab PO QAM 03/20/21 04/08/23 Losartan [Cozaar] 25 mg PO HS 03/20/21 04/08/23 Clopidogrel [Plavix] 75 mg PO QAM 04/03/23 04/08/23 Penicillin V Potassium [Pen Vee K] 500 mg PO QID 04/03/23 04/08/23 amLODIPine [Norvasc] 5 mg PO QAM 04/03/23 04/08/23 Previous Rx's Medication Instructions Recorded Acetaminophen Tab [Tylenol] 650 mg PO Q4HR PRN tab 04/25/20 Atorvastatin [Lipitor] 80 mg PO HS #30 tab 04/25/20 Metoprolol Tartrate [Lopressor] 50 mg PO BID #60 tab 04/25/20 Allergies Allergy/AdvReac Type Severity Reaction Status Date / Time Tetanus Vaccines and Toxoid Allergy Swelling Verified 10/24/24 08:47 [Tetanus Vaccines & Toxoid] Review of Systems ROS Statement: Those systems with pertinent positive or pertinent negative responses have been documented in the HPI. ROS Other: All systems not noted in ROS Statement are negative. Past Medical History Past Medical History: Coronary Artery Disease (CAD), Cancer, Chest Pain / Angina, Diabetes Mellitus, GERD/Reflux, Hyperlipidemia, Hypertension, Osteoarthritis (OA), Renal Disease Additional Past Medical History / Comment(s): Currently on antibiotic for tooth infection/had tooth extracted 04/01/23, IDDM type II, CKD stage III. 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 History of Any Multi-Drug Resistant Organisms: None Reported Past Surgical History: Cholecystectomy, Coronary Bypass/CABG, Heart Catheterization, Heart Catheterization With Stent, Orthopedic Surgery Additional Past Surgical History / Comment(s): 3 vessel bypass 04/20/20, carpal tunnel right side, benign brain tumor removed 1998, tumor removed from left shoulder, skin cancer removed from left leg, hemorrhoidectomy. Past Anesthesia/Blood Transfusion Reactions: No Reported Reaction Date of Last Stent Placement:: 2022 Past Psychological History: No Psychological Hx Reported Smoking Status: Former smoker Past Alcohol Use History: Rare Past Drug Use History: None Reported - Past Family History Sister(s) Family Medical History: Cancer Additional Family Medical History / Comment(s): Lung cancer. Brother(s) Family Medical History: Cancer Additional Family Medical History / Comment(s): One brother had bladder and lung cancer. One brother had lung and brain cancer. Mother Family Medical History: Cancer Son(s) Family Medical History: Myocardial Infarction ([place]) Additional Family Medical History / Comment(s): (Only had one child) from [place] at age 59 General Exam Limitations: no limitations General appearance: alert, in no apparent distress Head exam: Present: atraumatic, normocephalic, other (No large hematoma or lacer ation) Eye exam: Present: normal appearance, PERRL Neck exam: Present: normal inspection. Absent: tenderness, meningismus Respiratory exam: Present: normal lung sounds bilaterally. Absent: respiratory distress, wheezes Cardiovascular Exam: Present: regular rate, normal rhythm GI/Abdominal exam: Present: soft. Absent: distended, tenderness, guarding Extremities exam: Present: normal inspection, normal capillary refill Neurological exam: Present: alert, oriented X3, CN II-XII intact. Absent: motor sensory deficit Psychiatric exam: Present: normal affect, normal mood Skin exam: Present: warm, dry, intact. Absent: cyanosis, diaphoretic Course Vital Signs 10/24/24 08:44 Temperature 97.6 F Pulse Rate 51 L Respiratory 20 Rate Blood Pressure 190/128 O2 Sat by Pulse 97 Oximetry Medical Decision Making - Medical Decision Making Was pt. sent in by a medical professional or institution (MANISH Santoyo, RISK AND INSURANCE CONSULTANT, urgent care, hospital, or jail...) When possible be specific @ -No Did you speak to anyone other than the patient for history (EMS, parent, family, police, friend...)? What history was obtained from this source @ -No Did you review nursing and triage notes (agree or disagree)? Why? @ -I reviewed and agree with nursing and triage notes Were old charts reviewed (outside hosp., previous admission, EMS record, old EKG, old radiological studies, urgent care reports/EKG's, jail records)? Report findings @ -No old charts were reviewed Differential Syncope: Valvular disease, hypertrophic cardiomyopathy, pulmonary embolism, tamponade, tachycardia, bradycardia, [place], hypovolemia, hemorrhage, dissection, anemia, intracranial hemorrhage, seizure, hypoglycemia, carbon monoxide poisoning, this is not meant to be an all-inclusive list. EKG interpreted by me (3pts min.). @ -[Sinus bradycardia with first-degree AV block rate of 49, NV interval 228, QRS duration 161, right bundle branch block, QTc 445 X-rays interpreted by me (1pt min.). @ -Chest x-ray negative for acute cardiopulmonary findings CT interpreted by me (1pt min.). @CT brain and cervical spine negative for acute intracranial hemorrhage, no cervical fracture or subluxation, previous surgical changes U/S interpreted by me (1pt. min.). @ -[None done What testing was considered but not performed or refused? (CT, X-rays, U/S, labs)? Why? @ -None What meds were considered but not given or refused? Why? @ -None Did you discuss the management of the patient with other professionals (professionals i.e. MANISH Santoyo, RISK AND INSURANCE CONSULTANT, lab, RT, psych nurse, social media senior associate, hha, teacher, safety officer, case resource manager)? Give summary @ -No Was smoking cessation discussed for >3mins.? @ -No Was critical care preformed (if so, how long)? @ -No Were there social determinants of health that impacted care today? How? (Homelessness, low income, unemployed, alcoholism, drug addiction, transportation, low edu. Level, literacy, decrease access to med. care, care home, rehab)? @ -No Was there de-escalation of care discussed even if they declined (Discuss DNR or withdrawal of care, Hospice)? DNR status @ -No What co-morbidities impacted this encounter? (DM, HTN, Smoking, COPD, CAD, Cancer, CVA, ARF, Chemo, Hep., AIDS, mental health diagnosis, sleep apnea, morbid obesity)? @ -None Was patient admitted / discharged? Hospital course, mention meds given and route, prescriptions, significant lab abnormalities, going to OR and other pertinent info. @ -[84-year-old presenting with syncopal episode. Patient was an activated code coag due to aspirin Plavix and head injury. CT brain shows previous surgical changes without intracranial hemorrhage or acute findings. Patient has a mild anemia. Otherwise normal CBC normal CMP negative troponin, negative urinalysis. Patient observed for several hours in the emergency department without any further symptoms. She did not eat breakfast today. Patient offered admission for evaluation and monitoring. Patient declines prefers discharge. She will drink plenty of fluids eat regular meals and follow closely with her primary care provider. Undiagnosed new problem with uncertain prognosis? @ -No Drug Therapy requiring intensive monitoring for toxicity (Heparin, Nitro, Insulin, Cardizem)? @ -No Were any procedures done? @ -No Diagnosis/symptom? @ -[Syncope Acute, or Chronic, or Acute on Chronic? @ -Acute Uncomplicated (without systemic symptoms) or Complicated (systemic symptoms)? @ -Default Side effects of treatment? @ -No Exacerbation, Progression, or Severe Exacerbation? @ -No Poses a threat to life or bodily function? How? (Chest pain, [place], [place], pneumonia, PE, COPD, DKA, ARF, appy, cholecystitis, CVA, Diverticulitis, Homicidal, Suicidal, threat to staff... and all critical care pts) @Low risk at this time - Lab Data Result diagrams: 10/24/24:10/24/24: Lab Results 10/24/24 10/24/24 10/24/24 Range/Units :14 01:14 01: WBC 7.55 (4.50-10.00) 10*3/uL RBC 4.14 (4.10-5.20) 10*6/uL Hgb 11.1 L (12.0-15.0) g/dL Hct 34.0 L (37.2-46.3) % MCV 82.1 (80.0-97.0) fL MCH 26.8 L (27.0-32.0) pg MCHC 32.6 (32.0-37.0) g/dL Plt Count 173 (140-440) 10*3/uL MPV 9.6 (9.5-12.2) fL Immature Gran % (Auto) 0.5 % Neutrophils % 70.2 % Lymphocytes % 21.2 % Monocytes % 6.1 % Eosinophils % 1.6 % Basophils % 0.4 % Immature Gran # 0.04 (0.00-0.04) 10*3/uL Neutrophils # 5.30 (1.80-7.70) 10*3/uL Lymphocytes # 1.60 (0.90-5.00) 10*3/uL Monocytes # 0.46 (0.20-1.00) 10*3/uL Eosinophils # 0.12 (0.04-0.35) 10*3/uL Basophils # 0.03 (0.00-0.10) 10*3/uL PT 10.3 (10.0-12.5) sec INR 0.9 (<1.2) APTT 22.8 (22.0-30.0) sec Sodium 141 (137-145) mmol/L Potassium 4.6 (3.5-5.1) mmol/L Chloride 109 H (98-107) mmol/L Carbon Dioxide 21 L (22-30) mmol/L Anion Gap 11 mmol/L BUN 21 H (7-17) mg/dL Creatinine 1.14 H (0.52-1.04) mg/dL Est GFR (CKD-EPI)AfAm 51 (>60 ml/min/1.73 sqM) Est GFR (CKD-EPI)NonAf 44 (>60 ml/min/1.73 sqM) Glucose 152 H (74-99) mg/dL Calcium 9.5 (8.4-10.2) mg/dL Magnesium 1.6 (1.6-2.3) mg/dL Total Bilirubin 0.6 (0.2-1.3) mg/dL AST 19 (14-36) U/L ALT 15 (4-34) U/L Alkaline Phosphatase 72 (38-126) U/L Troponin I (0.000-0.034) ng/mL Total Protein 7.0 (6.3-8.2) g/dL Albumin 4.3 (3.5-5.0) g/dL Urine Color Urine Appearance (Clear) Urine pH (5.0-8.0) Ur Specific [place] (1.001-1.035) Urine Protein (Negative) Urine Glucose (UA) (Negative) Urine Ketones (Negative) Urine Blood (Negative) Urine Nitrite (Negative) Urine Bilirubin (Negative) Urine Urobilinogen (<2.0) mg/dL Ur Leukocyte Esterase (Negative) Urine RBC (0-5) /hpf 10/24/24 10/24/24 Range/Units 09:25 11:00 WBC (4.50-10.00) 10*3/uL RBC (4.10-5.20) 10*6/uL Hgb (12.0-15.0) g/dL Hct (37.2-46.3) % MCV (80.0-97.0) fL MCH (27.0-32.0) pg MCHC (32.0-37.0) g/dL Plt Count (140-440) 10*3/uL MPV (9.5-12.2) fL Immature Gran % (Auto) % Neutrophils % % Lymphocytes % % Monocytes % % Eosinophils % % Basophils % % Immature Gran # (0.00-0.04) 10*3/uL Neutrophils # (1.80-7.70) 10*3/uL Lymphocytes # (0.90-5.00) 10*3/uL Monocytes # (0.20-1.00) 10*3/uL Eosinophils # (0.04-0.35) 10*3/uL Basophils # (0.00-0.10) 10*3/uL PT (10.0-12.5) sec INR (<1.2) APTT (22.0-30.0) sec Sodium (137-145) mmol/L Potassium (3.5-5.1) mmol/L Chloride (98-107) mmol/L Carbon Dioxide (22-30) mmol/L Anion Gap mmol/L BUN (7-17) mg/dL Creatinine (0.52-1.04) mg/dL Est GFR (CKD-EPI)AfAm (>60 ml/min/1.73 sqM) Est GFR (CKD-EPI)NonAf (>60 ml/min/1.73 sqM) Glucose (74-99) mg/dL Calcium (8.4-10.2) mg/dL Magnesium (1.6-2.3) mg/dL Total Bilirubin (0.2-1.3) mg/dL AST (14-36) U/L ALT (4-34) U/L Alkaline Phosphatase (38-126) U/L Troponin I <0.012 (0.000-0.034) ng/mL Total Protein (6.3-8.2) g/dL Albumin (3.5-5.0) g/dL Urine Color Colorless Urine Appearance Clear (Clear) Urine pH 6.0 (5.0-8.0) Ur Specific [place] 1.003 (1.001-1.035) Urine Protein 1+ H (Negative) Urine Glucose (UA) Negative (Negative) Urine Ketones Negative (Negative) Urine Blood Negative (Negative) Urine Nitrite Negative (Negative) Urine Bilirubin Negative (Negative) Urine Urobilinogen <2.0 (<2.0) mg/dL Ur Leukocyte Esterase Negative (Negative) Urine RBC <1 (0-5) /hpf Disposition Clinical Impression: Syncope Disposition: HOME SELF-CARE Condition: Fair Instructions (If sedation given, give patient instructions): Syncope (ED) Additional Instructions: Please drink plenty fluids, eat regular meals. Is patient prescribed a controlled substance at d/c from ED?: No Referrals: Luis Brady MD [Primary Care Provider] - 1-2 days Time of Disposition: 11:31
[2024-10-24 09:29] LABS: WBC 7.55 10*3/uL (4.50-10.00)
[2024-10-24 09:30] LABS: Basophils # (A) 0.03 10*3/uL (0.00-0.10); Basophils % (A) 0.4 %; Eosinophils # (A) 0.12 10*3/uL (0.04-0.35); Eosinophils % (A) 1.6 %; HCT 34.0 % (37.2-46.3); HGB 11.1 g/dL (12.0-15.0); Lymphocytes # (A) 1.60 10*3/uL (0.90-5.00); Lymphocytes % (A) 21.2 %; MCH 26.8 pg (27.0-32.0); MCHC 32.6 g/dL (32.0-37.0); MCV 82.1 fL (80.0-97.0); Monocytes # (A) 0.46 10*3/uL (0.20-1.00); Monocytes % (A) 6.1 %; Neutrophils # (A) 5.30 10*3/uL (1.80-7.70); Neutrophils % (A) 70.2 %; Platelet Count 173 10*3/uL (140-440); RBC 4.14 10*6/uL (4.10-5.20); RDW 15.2 % (11.5-14.5)
--- NOTE | 2024-10-24 09:34 | CT ---
EXAMINATION TYPE: CT brain cspine wo con DATE OF EXAM: 10/24/2024 9:03 AM COMPARISON: None. CLINICAL INDICATION: Female, 84 years old with history of head injury on thinner; fell today hit fore head/ on thinners, pain TECHNIQUE: Brain: Multiple axial CT images of the brain were obtained without IV contrast. Cspine: Axial CT images from the skull base to the inferior aspect of T2 we obtained without intraven ous contrast. Coronal and sagittal reformatted images were also reviewed. . CT DLP: 1296 mGycm, Automated exposure control for dose reduction was used. FINDINGS: Brain: Extra-axial spaces: No abnormal extra-axial fluid collections. Ventricular system: Within normal limits Cerebral parenchyma: Encephalomalacia the bilateral frontal lobes inferiorly. No acute intraparenchym al hemorrhage or mass effect. The castillo-white junction is well differentiated. Cerebellum: Unremarkable. Mass effect: No evidence of midline shift. Intracranial vasculature: unremarkable Soft tissues: Normal. Calvarium/osseous structures: No depressed skull fracture. Postsurgical changes to the skull with scraper burrer niotomy. Paranasal sinuses and mastoid air cells: Clear. Visualized orbits: Bilateral aphakia Cervical spine: Fracture: None. Osseous structures: Multilevel degenerative disc disease changes with endplate spurring and disc oste ophyte complex's. Vertebral alignment: Within normal limits. Spinal canal/Neural Foramina: Disc osteophyte complexes at C4 -C6 with at least mild spinal canal marek nosis. No evidence for significant neural foraminal stenosis. Neck soft tissues: Prevertebral soft tissues are within normal limits. Other: The airway is patent. The lung apices are clear. IMPRESSION: 1. No acute intracranial process. 2. Encephalomalacia/postsurgical changes of the frontal lobes. 3. Nonspecific white matter changes, likely secondary to chronic small vessel ischemic disease. 4. No evidence of cervical spine fracture. 5. Mild multilevel degenerative disc disease. [facility], , 10/24/2024 9:31 AM
[2024-10-24 09:58] LABS: ALT 15 U/L (4-34); AST 19 U/L (14-36); African American GFR (CKD) 51 (>60 ml/min/1.73 sqM); Albumin 4.3 g/dL (3.5-5.0); Alkaline Phosphatase 72 U/L (38-126); Anion Gap 11 mmol/L; Blood Urea Nitrogen 21 mg/dL (7-17); Calcium 9.5 mg/dL (8.4-10.2); Carbon Dioxide 21 mmol/L (22-30); Chloride 109 mmol/L (98-107); Glucose 152 mg/dL (74-99); Magnesium 1.6 mg/dL (1.6-2.3); Non-African American GFR(CKD) 44 (>60 ml/min/1.73 sqM); Potassium 4.6 mmol/L (3.5-5.1); Sodium 141 mmol/L (137-145); Total Protein 7.0 g/dL (6.3-8.2)
[2024-10-24 10:05] LABS: INR 0.9 (<1.2); Partial Thromboplastin Time 22.8 sec (22.0-30.0); Prothrombin Time 10.3 sec (10.0-12.5)
[2024-10-24] MEDS: SODIUM CHLORIDE 0.9% 500 ML 500 ML IV ONE (10:13)
[2024-10-24] MEDS: ACETAMINOPHEN TAB 500 MG TAB PO STA (10:22)
--- NOTE | 2024-10-24 10:36 | XR ---
EXAMINATION TYPE: XR chest 2V DATE OF EXAM: 10/24/2024 10:19 AM COMPARISON: Chest radiographs from 04/25/2020. CLINICAL INDICATION: Female, 84 years old with history of syncope; TECHNIQUE: XR chest 2V Frontal and lateral views of the chest. FINDINGS: Lungs/Pleura: There is no evidence of pleural effusion, focal consolidation, or pneumothorax. Pulmonary vascularity: Unremarkable. Heart/mediastinum: Cardiomediastinal silhouette is prominent in size. Musculoskeletal: No acute osseous pathology. Midline sternotomy wires are noted. IMPRESSION: No acute cardiopulmonary disease/process. [facility], , 10/24/2024 10:34 AM
[2024-10-24 11:12] LABS: Bilirubin,Urine Negative (Negative); Blood,Urine Negative (Negative); Color,Urine Colorless; Glucose,Urine (UA) Negative (Negative); Ketones,Urine Negative (Negative); Leukocyte Esterase,Urine Negative (Negative); Nitrite,Urine Negative (Negative); PH, Urine 6.0 (5.0-8.0); Protein,Urine 1+ (Negative); RBC,Urine <1 /hpf (0-5); Specific Gravity,Urine 1.003 (1.001-1.035); Urobilinogen,Urine <2.0 mg/dL (<2.0)
[2024-10-24 11:54] VITALS: BP 163/77; PULSE 52; RESP 16; TEMP 98.9
== END 2024-10-24 11:58 | disposition home or self-care (01) ==
LOC: EC 08:39
DX: R55 Syncope and collapse (principal); Z87.891 Personal history of nicotine dependence; Z88.7 Allergy status to serum and vaccine; W18.30XA Fall on same level, unspecified, initial encounter; Y92.019 Unspecified place in single-family (private) house as the place of occurrence of the external cause
CPT/HCPCS: 36415; 70450; 71046; 72125; 80053; 81001; 83735; 84484; 85025; 85610; 85730; 93005; 99284